=== PATIENT | female | born 1965 | race Caucasian/White ===

== ENCOUNTER 2016-02-28 18:07 | Inpatient (IN) | payer MEDICARE, MEDICAID ==
[~2016-02-28] VITALS: Ht 154.9 cm; Wt 102.0 kg
[~2016-02-28 18:07] MED LIST: ACCUCHECKS; AMBIEN 10MG10 MG PO; ANAFRANIL 25MG25 MG PO; ASPIRIN 81M81 MG/TA2 PO; ASPIRIN E.C. 8181 MG PO; ATENOLOL50 MG PO; ATIVAN 0.50.5 MG/TAB PO; ATIVAN 1MG T1 MG/TAB PO; BUSPAR10 MG PO; CARDURA 2MG2 MG PO; CEFTIN 250250 MG/TAB PO; CEFTIN500 MG PO; CIPRO500 MG PO; DILAUDID 2MG TAB2 MG PO; EFFEXOR 3737.5 MG/TA PO; EFFEXOR 75M75 MG/TAB PO; EFFEXOR-XR150 MG PO; FLAGYL500 MG PO; FLEXERIL 1010 MG/TAB PO; GABAPENTIN300 M1 PO; HCTZ 25MG25 MG PO; HUMALOG100 U/ML SC; IMDUR 30MG30 MG/TAB PO; INDERAL 20MG20 MG PO; ISOCHRON40 MG PO; ISORDIL TITRADO30 MG PO; K-DUR20 MEQ PO; KEPPRA 500MG500 MG PO; KEPPRA1000 MG PO; KEPPRA750 MG PO; KLONOPIN PO; LANTUS100 U/ML; LANTUS100 U/ML SC; LASIX 20MG TABL20 MG PO; LATUDA40 MG PO; LEXAPRO 5MG5 MG PO; LEXAPRO20 MG PO; LIPITOR 40MG TA40 MG PO; LIPITOR20 MG PO; LISINOPRIL20 MG PO; LOPRESSOR 550 MG/TAB PO; LYRICA 75MG CAP75 MG PO; MACROBID 1100 MG/CAP PO; MAG-OX 400400 MG/TAB PO; MIDRIN 325 MG-11 CAP PO; MOBIC15 MG PO; NEURONTIN400 MG/CAP PO; NORCO 325 MG-51 TAB PO; NOVLOG SC; NOVOLIN L100 U/ML SC; NOVOLOG 100U100 U/M1 SQ; NOVOLOG PUMP; PHENERGAN 25 TA25 MG PO; PHENERGAN25 M1 PO; PHENERGAN25 MG RC; PLAVIX 75MG TAB75 MG PO; PREDNISONE20 MG PO; PRIL40 PO; PRILOSEC 20MG20 MG PO; PROTONIX 40MG T40 MG PO; PYRIDIUM200 M1 PO; REGLAN 10MG10 MG/TAB PO; REMERON SOLTAB15 MG PO; REMERON30 MG PO; RISPERDAL 0.5M0.5 MG PO; SYNTHROID0.125 MG/T PO; TEGRETOL-XR400 MG PO; TOPAMAX 100MG100 M1 PO; TOPAMAX200 MG PO; TRAMADOL50 MG PO; TYLENOL 325MG325 MG PO; TYLENOL 500MG500 MG PO; ULTRAM 50MG TAB50 MG PO; ZANTAC; ZOCOR 20MG20 MG PO; ZOCOR 80MG80 MG PO; ZOFRAN 4MG T4 MG/TAB PO; ZOFRAN ODT4 MG PO; ZOFRAN8 MG PO; ZYRTEC 10MG; ZYRTEC 10MG10 MG PO
[2016-02-28 19:38] LABS: BASO % 0.3 % (0.0-2.0); EOS # 0.1 (0.0-0.7); EOS % 1.1 % (0-4.0); GRAN # 9.6 (1.4-6.5); GRAN % 75.3 % (42.2-75.2); LYMPH # 2.3 (1.2-3.4); LYMPH % 18.3 % (20.0-51.0); MEAN CELL VOLUME 89 fl (80.0-100.0); MEAN CORPUSCULAR HGB CONC 34 g/dl (33.0-37.0); MEAN PLATELET VOLUME 9.6 fl (7.4-10.4); MONO # 0.5 (0.1-0.6); MONO % 4.2 % (1.7-9.3); PLATELET COUNT 159 K/mm3 (130-400); RED BLOOD COUNT 3.73 M/mm3 (4.10-5.30); REDCELL DISTRIBUTION WIDTH-CV 14.3 % (11.5-14.5); WHITE BLOOD COUNT 12.8 K/mm3 (4.8-10.8)
[2016-02-28 19:42] LABS: HEMATOCRIT 33.2 % (37.0-47.0); HEMOGLOBIN 11.3 g/dl (12.5-16.0); MEAN CORPUSCULAR HEMOGLOBIN 30 pg (27.0-31.0)
[2016-02-28 19:53] LABS: ADJUSTED CALCIUM 9.3 mg/dL (8.4-10.2); ALBUMIN 4.1 gm/dL (3.5-5.0); BILIRUBIN,TOTAL 0.6 mg/dL (0.0-1.0); CALCIUM 9.4 mg/dL (8.4-10.2); CREATININE, serum 0.66 mg/dL (0.52-1.25); POTASSIUM 3.9 mmol/L (3.4-5.0); TOTAL PROTEIN 6.9 gm/dL (6.4-8.2)
[2016-02-28 20:17] LABS: ERYTHROCYTE SEDIMENTATION RATE 38 mm/hr (0-20)
[2016-02-28 20:44] LABS: PH 6 (5-8); URINE APPEARANCE Hazy; URINE BACTERIA Rare /hpf; URINE BILIRUBIN Negative (NEGATIVE); URINE BLOOD 1+ (NEGATIVE); URINE COLOR Yellow; URINE GLUCOSE 3+ (NEGATIVE); URINE KETONE Negative (NEGATIVE); URINE UROBILINOGEN Negative (NEGATIVE); URINE WBC None Seen /hpf
[2016-02-28] MEDS ORDERED: KEPPRA1000 MG PO (21:45)
[2016-02-28] MEDS ORDERED: BENADRYL25 M2 PO (21:48)
[2016-02-28] MEDS ORDERED: LAMICTAL 100MG100 MG PO (21:49)
[2016-02-28] MEDS ORDERED: CYMBALTA 60MG60 MG PO (21:49)
[2016-02-28] MEDS ORDERED: CARDURA 1MG1 MG PO (21:50)
[2016-02-28 22:01] VITALS: BP 123/66; PULSE 100; TEMP 98.9
[2016-02-29] VITALS (578 sets, daily range): BP systolic 108–142; BP diastolic 59–84; PULSE 84–102; TEMP 96.9–99; O2SAT 80–99
[2016-02-29 02:12] LABS: MAGNESIUM 1.6 mg/dL (1.6-2.3)
[2016-02-29 02:18] LABS: INR 1.1 (0.8-3.0); PROTHROMBIN TIME 11.8 SECONDS (9.7-12.8)
[2016-02-29 02:21] LABS: PARTIAL THROMBOPLASTIN TIME 32.7 SECONDS (26.0-37.0)
[2016-02-29 02:25] LABS: B-TYPE NATRIURETIC PEPTIDE 28 pg/mL (0-125)
[2016-02-29 02:30] LABS: TROPONIN-I < 0.012 ng/mL (0.000-0.034)
[2016-02-29 02:38] LABS: PH 5 (5-8); SQUAMOUS EPITHELIAL None Seen /hpf; URINE APPEARANCE Clear; URINE BACTERIA None Seen /hpf; URINE BILIRUBIN Negative (NEGATIVE); URINE BLOOD Negative (NEGATIVE); URINE COLOR Yellow; URINE GLUCOSE 3+ (NEGATIVE); URINE KETONE Negative (NEGATIVE); URINE RBC 0-2 /hpf; URINE UROBILINOGEN Negative (NEGATIVE); URINE WBC 0-2 /hpf
[2016-03-01 03:58] VITALS: BP 124/57; PULSE 99; TEMP 98.6
[2016-03-01 08:39] VITALS: BP 111/59; PULSE 90; TEMP 99
[2016-03-01 13:07] VITALS: BP 114/57; PULSE 80; TEMP 97.4
[2016-03-01 17:01] VITALS: BP 151/72; PULSE 90; TEMP 97.4
[2016-03-01 19:20] VITALS: BP 141/72; PULSE 95; TEMP 98.6
[2016-03-01 22:58] VITALS: BP 103/52; PULSE 93; TEMP 99
[2016-03-02 04:10] VITALS: BP 133/61; PULSE 92; TEMP 98.8
[2016-03-02 07:46] VITALS: BP 147/68; PULSE 93; TEMP 98.1
[2016-03-02 11:02] VITALS: BP 115/67; PULSE 83; TEMP 98.8
[2016-03-02 15:16] VITALS: BP 141/63; PULSE 87; TEMP 98
[2016-03-02 19:24] VITALS: BP 130/62; PULSE 98; TEMP 98.5
[2016-03-02 22:50] VITALS: BP 124/61; PULSE 101; TEMP 98.1
[2016-03-03] VITALS (8 sets, daily range): BP systolic 110–142; BP diastolic 56–67; PULSE 91–110; TEMP 97.7–98.7
[2016-03-03 04:40] LABS: PH 8 (5-8); SQUAMOUS EPITHELIAL None Seen /hpf; URINE APPEARANCE Hazy; URINE BACTERIA None Seen /hpf; URINE BILIRUBIN Negative (NEGATIVE); URINE BLOOD 1+ (NEGATIVE); URINE COLOR Yellow; URINE GLUCOSE 1+ (NEGATIVE); URINE KETONE 1+ (NEGATIVE); URINE UROBILINOGEN Negative (NEGATIVE)
[2016-03-03 12:01] LABS: BASO % 0.3 % (0.0-2.0); EOS # 0.1 (0.0-0.7); EOS % 0.6 % (0-4.0); GRAN # 10.8 (1.4-6.5); GRAN % 84.5 % (42.2-75.2); LYMPH # 1.2 (1.2-3.4); LYMPH % 9.4 % (20.0-51.0); MEAN CELL VOLUME 90 fl (80.0-100.0); MEAN CORPUSCULAR HGB CONC 33 g/dl (33.0-37.0); MEAN PLATELET VOLUME 9.4 fl (7.4-10.4); MONO # 0.6 (0.1-0.6); MONO % 4.4 % (1.7-9.3); PLATELET COUNT 154 K/mm3 (130-400); RED BLOOD COUNT 3.44 M/mm3 (4.10-5.30); REDCELL DISTRIBUTION WIDTH-CV 14.5 % (11.5-14.5); WHITE BLOOD COUNT 12.8 K/mm3 (4.8-10.8)
[2016-03-03 12:11] LABS: HEMATOCRIT 30.9 % (37.0-47.0); HEMOGLOBIN 10.3 g/dl (12.5-16.0); MEAN CORPUSCULAR HEMOGLOBIN 30 pg (27.0-31.0)
[2016-03-03 12:29] LABS: CALCIUM 9.2 mg/dL (8.4-10.2); CREATININE, serum 0.56 mg/dL (0.52-1.25); POTASSIUM 4.1 mmol/L (3.4-5.0)
[2016-03-04 00:17] VITALS: BP 128/64; PULSE 91; TEMP 98.2
[2016-03-04 03:56] VITALS: BP 137/64; PULSE 88; TEMP 98
[2016-03-04 08:07] VITALS: BP 147/67; PULSE 89; TEMP 98.2
[2016-03-04 11:28] VITALS: BP 106/71; PULSE 58; TEMP 97.6
[2016-03-04] MEDS ORDERED: LOVENOX 4040 MG/0.4 SQ (15:29)
[2016-03-04] MEDS ORDERED: SENOKOT S 50 MG1 TAB PO (15:30)
[2016-03-04 15:37] VITALS: BP 106/71; PULSE 58; TEMP 97.6
[2016-03-04] MEDS ORDERED: CEFTIN500 MG PO (17:05)
== END 2016-03-04 16:59 | DRG 73 ==
LOC: COL.ER 18:07 → MEDICAL 20:41 → ICU 02-29 03:05 → MEDICAL 02-29 11:25 → ICU 02-29 11:25 → MEDICAL 02-29 14:44
PROVIDERS: Emergency Medicine; Family Medicine; Nurse Practitioner Family
DX: E10.43 Type 1 diabetes mellitus with diabetic autonomic (poly)neuropathy (principal); J96.01 Acute respiratory failure with hypoxia; Z68.41 Body mass index [BMI] 40.0-44.9, adult; K31.84 Gastroparesis; Z79.4 Long term (current) use of insulin; Z96.41 Presence of insulin pump (external) (internal); E66.01 Morbid (severe) obesity due to excess calories; I10 Essential (primary) hypertension; K70.0 Alcoholic fatty liver; R33.9 Retention of urine, unspecified
CPT/HCPCS: 99223-AI; 99232-AI; 99239; A4315; A9284; A9502; G0378; J1170; J1650; J1815; J2060; J2270; J2310; J2405; J2550; J2765; J2785; J7030; Q9967

== ENCOUNTER 2016-03-07 23:49 | Emergency (ER) | payer MEDICARE, MEDICAID ==
[~2016-03-07] VITALS: Ht 154.9 cm; Wt 97.3 kg
[~2016-03-07 23:49] MED LIST changes: +BENADRYL25 M2 PO; +CARDURA 1MG1 MG PO; +CYMBALTA 60MG60 MG PO; +LAMICTAL 100MG100 MG PO; +LOVENOX 4040 MG/0.4 SQ; +SENOKOT S 50 MG1 TAB PO
[2016-03-07 23:51] VITALS: TEMP 99.1
[2016-03-08] MEDS ORDERED: LEVEMIR SQ (00:03)
[2016-03-08] MEDS ORDERED: NOVLOG SQ (00:03)
[2016-03-08 01:10] LABS: PH 6 (5-8); SQUAMOUS EPITHELIAL 0-2 /hpf; URINE APPEARANCE Cloudy; URINE BACTERIA Rare /hpf; URINE BILIRUBIN Negative (NEGATIVE); URINE BLOOD 3+ (NEGATIVE); URINE COLOR Yellow; URINE GLUCOSE 1+ (NEGATIVE); URINE KETONE Negative (NEGATIVE); URINE RBC >50 /hpf; URINE UROBILINOGEN Negative (NEGATIVE); URINE WBC 20-50 /hpf
[2016-03-08] MEDS ORDERED: LEVAQUIN 750MG750 M1 PO (01:54)
[2016-03-08] MEDS ORDERED: PYRIDIUM200 M1 PO (01:54)
[2016-03-08 02:13] VITALS: BP 151/71; PULSE 84
== END 2016-03-08 02:13 | disposition home or self-care (01) ==
LOC: COL.ER 23:49
PROVIDERS: Emergency Medicine
DX: R10.32 Left lower quadrant pain (principal)

== ENCOUNTER 2016-03-13 19:07 | Emergency (ER) | payer MEDICARE, MEDICAID ==
[~2016-03-13] VITALS: Ht 154.9 cm; Wt 100.9 kg
[~2016-03-13 19:07] MED LIST changes: +LEVAQUIN 750MG750 M1 PO; +LEVEMIR SQ; +NOVLOG SQ
[2016-03-13 20:18] LABS: BASO # 0.1 (0.0-0.2); BASO % 0.4 % (0.0-2.0); EOS # 0.1 (0.0-0.7); GRAN # 9.9 (1.4-6.5); GRAN % 72.4 % (42.2-75.2); LYMPH # 2.8 (1.2-3.4); LYMPH % 20.2 % (20.0-51.0); MEAN CELL VOLUME 90 fl (80.0-100.0); MEAN CORPUSCULAR HGB CONC 33 g/dl (33.0-37.0); MEAN PLATELET VOLUME 9.3 fl (7.4-10.4); MONO # 0.7 (0.1-0.6); PLATELET COUNT 229 K/mm3 (130-400); RED BLOOD COUNT 3.63 M/mm3 (4.10-5.30); REDCELL DISTRIBUTION WIDTH-CV 14.2 % (11.5-14.5); WHITE BLOOD COUNT 13.6 K/mm3 (4.8-10.8)
[2016-03-13 20:22] LABS: HEMATOCRIT 32.7 % (37.0-47.0); HEMOGLOBIN 10.9 g/dl (12.5-16.0); MEAN CORPUSCULAR HEMOGLOBIN 30 pg (27.0-31.0)
[2016-03-13 20:28] LABS: ADJUSTED CALCIUM 9.5 mg/dL (8.4-10.2); ALANINE AMINOTRANSFERASE 37 U/L (9-52); ALBUMIN 4.1 gm/dL (3.5-5.0); ALKALINE PHOSPHATASE 141 U/L (50-136); ANION GAP 13 mmol/L (7-16); BILIRUBIN,TOTAL 0.5 mg/dL (0.0-1.0); BLOOD UREA NITROGEN 13 mg/dL (7-17); CALCIUM 9.6 mg/dL (8.4-10.2); CARBON DIOXIDE 26 mmol/L (22-30); CHLORIDE 101 mmol/L (98-107); CREATININE, serum 0.73 mg/dL (0.52-1.25); GLUCOSE 147 mg/dL (74-106); POTASSIUM 3.9 mmol/L (3.4-5.0); SODIUM 140 mmol/L (137-145)
[2016-03-13 20:44] LABS: PROLACTIN 20.2 ng/mL (3.0-18.6)
[2016-03-13 20:45] VITALS: TEMP 98.8
[2016-03-13 20:51] LABS: PH 8 (5-8); SQUAMOUS EPITHELIAL None Seen /hpf; URINE APPEARANCE Clear; URINE BACTERIA None Seen /hpf; URINE BILIRUBIN Negative (NEGATIVE); URINE BLOOD 3+ (NEGATIVE); URINE COLOR Yellow; URINE GLUCOSE Negative (NEGATIVE); URINE KETONE Negative (NEGATIVE); URINE RBC >50 /hpf; URINE UROBILINOGEN Negative (NEGATIVE)
[2016-03-13] MEDS ORDERED: NORCO 325 MG-51 TAB PO (21:07)
[2016-03-13 21:28] VITALS: BP 110/66; PULSE 80
[2016-03-13] MEDS ORDERED: SENOKOT8.6 MG PO (21:41)
[2016-03-13] MEDS ORDERED: TYLENOL 500MG500 MG PO (21:42)
== END 2016-03-13 21:30 | disposition home or self-care (01) ==
LOC: COL.ER 19:07
PROVIDERS: Family Medicine
DX: R55 Syncope and collapse (principal); R51 Headache; M54.2 Cervicalgia; M25.512 Pain in left shoulder; M25.552 Pain in left hip; W19.XXXA Unspecified fall, initial encounter; Y92.098 Other place in other non-institutional residence as the place of occurrence of the external cause; N39.0 Urinary tract infection, site not specified; E10.9 Type 1 diabetes mellitus without complications; Z79.2 Long term (current) use of antibiotics; I51.7 Cardiomegaly
CPT/HCPCS: J1170; J2550; J7030

== ENCOUNTER → 2016-03-18 | Outpatient (REF) ==
[~2016-03-18] MED LIST changes: +BUSPAR5 MG PO; +CEPHALEXIN250 M1 PO; +CLEOCIN HCL300 MG PO; +DIFLUCAN 100MG100 MG PO; +K-DUR 10 MEQ T10 MEQ PO; +LANTUS SOLOS100 U/ML SQ; +MELATONIN5 M1 SL; +MINIPRESS 1M1 MG/CAP PO; +OMEGA-3 FISH1000 MG PO; +PYRIDIUM 100MG100 MG PO; +SENNA-LAX8.6 MG PO; +SENOKOT8.6 MG PO; +SYNTHROID0.112 MG/T PO; +TRICOR 48MG48 MG PO; +VASCEPA1 GM PO; +VISTARIL 2525 MG/CAP PO
== END ==
LOC: ZCOL.LAB 14:35
DX: Z01.89 Encounter for other specified special examinations (principal)

== ENCOUNTER 2016-03-19 21:50 | Emergency (ER) | payer MEDICARE, MEDICAID ==
[~2016-03-19] VITALS: Ht 154.9 cm; Wt 100.9 kg
[~2016-03-19 21:50] MED LIST changes: -BUSPAR5 MG PO; -CEPHALEXIN250 M1 PO; -CLEOCIN HCL300 MG PO; -DIFLUCAN 100MG100 MG PO; -K-DUR 10 MEQ T10 MEQ PO; -LANTUS SOLOS100 U/ML SQ; -MELATONIN5 M1 SL; -MINIPRESS 1M1 MG/CAP PO; -OMEGA-3 FISH1000 MG PO; -PYRIDIUM 100MG100 MG PO; -SENNA-LAX8.6 MG PO; -SYNTHROID0.112 MG/T PO; -TRICOR 48MG48 MG PO; -VASCEPA1 GM PO; -VISTARIL 2525 MG/CAP PO
[2016-03-19 21:56] VITALS: TEMP 99.2
[2016-03-19 22:45] LABS: PH 8 (5-8); URINE APPEARANCE Clear; URINE BACTERIA None Seen /hpf; URINE BILIRUBIN Negative (NEGATIVE); URINE BLOOD Negative (NEGATIVE); URINE COLOR Yellow; URINE GLUCOSE Negative (NEGATIVE); URINE KETONE Negative (NEGATIVE); URINE RBC 0-2 /hpf; URINE UROBILINOGEN Negative (NEGATIVE)
[2016-03-19 23:12] LABS: BASO % 0.2 % (0.0-2.0); EOS # 0.1 (0.0-0.7); EOS % 1.2 % (0-4.0); GRAN # 8.5 (1.4-6.5); GRAN % 70.4 % (42.2-75.2); HEMATOCRIT 32.9 % (37.0-47.0); HEMOGLOBIN 10.9 g/dl (12.5-16.0); LYMPH # 2.9 (1.2-3.4); LYMPH % 23.6 % (20.0-51.0); MEAN CELL VOLUME 89 fl (80.0-100.0); MEAN CORPUSCULAR HEMOGLOBIN 30 pg (27.0-31.0); MEAN CORPUSCULAR HGB CONC 33 g/dl (33.0-37.0); MEAN PLATELET VOLUME 9.3 fl (7.4-10.4); MONO # 0.5 (0.1-0.6); PLATELET COUNT 217 K/mm3 (130-400); RED BLOOD COUNT 3.68 M/mm3 (4.10-5.30); REDCELL DISTRIBUTION WIDTH-CV 13.9 % (11.5-14.5); WHITE BLOOD COUNT 12.1 K/mm3 (4.8-10.8)
[2016-03-19 23:22] LABS: ADJUSTED CALCIUM 9.7 mg/dL (8.4-10.2); ALBUMIN 4.2 gm/dL (3.5-5.0); BILIRUBIN,TOTAL 0.6 mg/dL (0.0-1.0); C-REACTIVE PROTEIN 1.6 mg/dL (0.0-0.9); CALCIUM 9.9 mg/dL (8.4-10.2); CREATININE, serum 0.65 mg/dL (0.52-1.25); POTASSIUM 3.8 mmol/L (3.4-5.0); TOTAL PROTEIN 7.5 gm/dL (6.4-8.2)
[2016-03-20] MEDS ORDERED: SYNTHROID0.125 MG/T PO (00:10)
[2016-03-20] MEDS ORDERED: LAMICTAL 100MG100 MG PO (00:11)
[2016-03-20] MEDS ORDERED: PROTONIX 40MG T40 MG PO (00:11)
[2016-03-20] MEDS ORDERED: LOPRESSOR 550 MG/TAB PO (00:12)
[2016-03-20] MEDS ORDERED: REGLAN 10MG10 MG/TAB PO (00:13)
[2016-03-20] MEDS ORDERED: ATIVAN 0.50.5 MG/TAB PO (00:14)
[2016-03-20] MEDS ORDERED: LASIX 20MG TABL20 MG PO (00:14)
[2016-03-20] MEDS ORDERED: ISORDIL TITRADO30 MG PO (00:17)
[2016-03-20] MEDS ORDERED: K-DUR 10 MEQ T10 MEQ PO (00:17)
[2016-03-20] MEDS ORDERED: LIPITOR 40MG TA40 MG PO (00:18)
[2016-03-20] MEDS ORDERED: DIFLUCAN 100MG100 MG PO (00:19)
[2016-03-20 00:45] VITALS: BP 128/69; PULSE 81
== END 2016-03-20 00:47 | disposition home or self-care (01) ==
LOC: COL.ER 21:50
PROVIDERS: Emergency Medicine
DX: R10.31 Right lower quadrant pain (principal); R10.32 Left lower quadrant pain; R33.9 Retention of urine, unspecified; E11.9 Type 2 diabetes mellitus without complications; I10 Essential (primary) hypertension
CPT/HCPCS: J1170; J2405

== ENCOUNTER → 2016-03-20 | Outpatient (REF) ==
[~2016-03-20] MED LIST changes: +BUSPAR5 MG PO; +CEPHALEXIN250 M1 PO; +CLEOCIN HCL300 MG PO; +DIFLUCAN 100MG100 MG PO; +K-DUR 10 MEQ T10 MEQ PO; +LANTUS SOLOS100 U/ML SQ; +MELATONIN5 M1 SL; +MINIPRESS 1M1 MG/CAP PO; +OMEGA-3 FISH1000 MG PO; +PYRIDIUM 100MG100 MG PO; +SENNA-LAX8.6 MG PO; +SYNTHROID0.112 MG/T PO; +TRICOR 48MG48 MG PO; +VASCEPA1 GM PO; +VISTARIL 2525 MG/CAP PO
== END ==
LOC: ZCOL.LAB 13:19
DX: Z01.89 Encounter for other specified special examinations (principal)

== ENCOUNTER 2016-03-21 20:05 | Emergency (ER) | payer MEDICARE, MEDICAID ==
[~2016-03-21] VITALS: Ht 154.9 cm; Wt 100.9 kg
[~2016-03-21 20:05] MED LIST changes: -BUSPAR5 MG PO; -CEPHALEXIN250 M1 PO; -CLEOCIN HCL300 MG PO; -LANTUS SOLOS100 U/ML SQ; -MELATONIN5 M1 SL; -MINIPRESS 1M1 MG/CAP PO; -OMEGA-3 FISH1000 MG PO; -PYRIDIUM 100MG100 MG PO; -SENNA-LAX8.6 MG PO; -SYNTHROID0.112 MG/T PO; -TRICOR 48MG48 MG PO; -VASCEPA1 GM PO; -VISTARIL 2525 MG/CAP PO
[2016-03-21 20:12] VITALS: TEMP 99
[2016-03-21 21:00] VITALS: BP 119/80; PULSE 80
== END 2016-03-21 21:02 | disposition home or self-care (01) ==
LOC: COL.ER 20:05
DX: M79.632 Pain in left forearm (principal); W01.198A Fall on same level from slipping, tripping and stumbling with subsequent striking against other object, initial encounter; Y92.009 Unspecified place in unspecified non-institutional (private) residence as the place of occurrence of the external cause; E10.9 Type 1 diabetes mellitus without complications; Z79.4 Long term (current) use of insulin
CPT/HCPCS: J1170; J2550

== ENCOUNTER 2016-03-24 12:09 | Emergency (ER) | payer MEDICARE, MEDICAID ==
[~2016-03-24] VITALS: Ht 154.9 cm; Wt 101.8 kg
[2016-03-24 12:12] VITALS: TEMP 98.8
[2016-03-24 13:20] LABS: BASO % 0.3 % (0.0-2.0); EOS # 0.1 (0.0-0.7); EOS % 1.1 % (0-4.0); GRAN # 6.4 (1.4-6.5); GRAN % 72.8 % (42.2-75.2); HEMATOCRIT 33.5 % (37.0-47.0); HEMOGLOBIN 11.1 g/dl (12.5-16.0); LYMPH # 1.9 (1.2-3.4); LYMPH % 21.3 % (20.0-51.0); MEAN CELL VOLUME 89 fl (80.0-100.0); MEAN CORPUSCULAR HEMOGLOBIN 29 pg (27.0-31.0); MEAN CORPUSCULAR HGB CONC 33 g/dl (33.0-37.0); MEAN PLATELET VOLUME 9.8 fl (7.4-10.4); MONO # 0.4 (0.1-0.6); PLATELET COUNT 177 K/mm3 (130-400); RED BLOOD COUNT 3.78 M/mm3 (4.10-5.30); REDCELL DISTRIBUTION WIDTH-CV 13.9 % (11.5-14.5); WHITE BLOOD COUNT 8.8 K/mm3 (4.8-10.8)
[2016-03-24 13:32] LABS: ADJUSTED CALCIUM 9.4 mg/dL (8.4-10.2); ALANINE AMINOTRANSFERASE 36 U/L (9-52); ALBUMIN 4.2 gm/dL (3.5-5.0); ALKALINE PHOSPHATASE 144 U/L (50-136); ANION GAP 13 mmol/L (7-16); BILIRUBIN,TOTAL 0.5 mg/dL (0.0-1.0); BLOOD UREA NITROGEN 12 mg/dL (7-17); C-REACTIVE PROTEIN 2.1 mg/dL (0.0-0.9); CALCIUM 9.6 mg/dL (8.4-10.2); CARBON DIOXIDE 23 mmol/L (22-30); CHLORIDE 106 mmol/L (98-107); CREATININE, serum 0.65 mg/dL (0.52-1.25); GLUCOSE 153 mg/dL (74-106); LIPASE 48 U/L (23-300); POTASSIUM 3.9 mmol/L (3.4-5.0); SODIUM 142 mmol/L (137-145); TOTAL PROTEIN 7.2 gm/dL (6.4-8.2)
[2016-03-24 13:47] LABS: TROPONIN-I < 0.012 ng/mL (0.000-0.034)
[2016-03-24 16:07] VITALS: BP 145/70; PULSE 83
== END 2016-03-24 16:10 | disposition home or self-care (01) ==
LOC: COL.ER 12:09
PROVIDERS: Emergency Medicine
DX: R07.9 Chest pain, unspecified (principal); E11.9 Type 2 diabetes mellitus without complications; I10 Essential (primary) hypertension
CPT/HCPCS: J2405

== ENCOUNTER → 2016-03-30 | Outpatient (REF) ==
[~2016-03-30] MED LIST changes: +BUSPAR5 MG PO; +CEPHALEXIN250 M1 PO; +CLEOCIN HCL300 MG PO; +LANTUS SOLOS100 U/ML SQ; +MELATONIN5 M1 SL; +MINIPRESS 1M1 MG/CAP PO; +OMEGA-3 FISH1000 MG PO; +PYRIDIUM 100MG100 MG PO; +SENNA-LAX8.6 MG PO; +SYNTHROID0.112 MG/T PO; +TRICOR 48MG48 MG PO; +VASCEPA1 GM PO; +VISTARIL 2525 MG/CAP PO
[2016-03-30 10:55] LABS: PH 6 (5-8); URINE APPEARANCE Hazy; URINE BACTERIA None Seen /hpf; URINE BILIRUBIN Negative (NEGATIVE); URINE BLOOD Negative (NEGATIVE); URINE COLOR Straw; URINE GLUCOSE Negative (NEGATIVE); URINE KETONE Negative (NEGATIVE); URINE RBC None Seen /hpf; URINE UROBILINOGEN Negative (NEGATIVE); URINE WBC 0-2 /hpf
== END ==
LOC: ZCOL.LAB 10:34
PROVIDERS: Family Medicine
DX: Z01.89 Encounter for other specified special examinations (principal)

== ENCOUNTER → 2016-03-31 | Outpatient (REF) ==
[2016-03-31 12:01] LABS: BASO % 0.3 % (0.0-2.0); EOS # 0.2 (0.0-0.7); EOS % 1.4 % (0-4.0); GRAN # 8.7 (1.4-6.5); GRAN % 75.7 % (42.2-75.2); LYMPH % 17.5 % (20.0-51.0); MEAN CELL VOLUME 90 fl (80.0-100.0); MEAN CORPUSCULAR HEMOGLOBIN 30 pg (27.0-31.0); MEAN CORPUSCULAR HGB CONC 33 g/dl (33.0-37.0); MEAN PLATELET VOLUME 10.6 fl (7.4-10.4); MONO # 0.5 (0.1-0.6); PLATELET COUNT 164 K/mm3 (130-400); RED BLOOD COUNT 4.04 M/mm3 (4.10-5.30); REDCELL DISTRIBUTION WIDTH-CV 14.3 % (11.5-14.5); WHITE BLOOD COUNT 11.5 K/mm3 (4.8-10.8)
[2016-03-31 12:04] LABS: HEMATOCRIT 36.3 % (37.0-47.0)
== END ==
LOC: ZCOL.LAB 11:54
PROVIDERS: Urology
DX: Z01.89 Encounter for other specified special examinations (principal)

== ENCOUNTER 2016-04-03 19:40 | Emergency (ER) | payer MEDICARE, MEDICAID ==
[~2016-04-03] VITALS: Ht 154.9 cm; Wt 101.8 kg
[~2016-04-03 19:40] MED LIST changes: -BUSPAR5 MG PO; -CEPHALEXIN250 M1 PO; -CLEOCIN HCL300 MG PO; -LANTUS SOLOS100 U/ML SQ; -MELATONIN5 M1 SL; -MINIPRESS 1M1 MG/CAP PO; -OMEGA-3 FISH1000 MG PO; -PYRIDIUM 100MG100 MG PO; -SENNA-LAX8.6 MG PO; -SYNTHROID0.112 MG/T PO; -TRICOR 48MG48 MG PO; -VASCEPA1 GM PO; -VISTARIL 2525 MG/CAP PO
[2016-04-03 19:49] VITALS: TEMP 98.8
[2016-04-03 20:33] LABS: BASO % 0.3 % (0.0-2.0); EOS # 0.1 (0.0-0.7); EOS % 0.9 % (0-4.0); GRAN % 68.5 % (42.2-75.2); HEMOGLOBIN 12.2 g/dl (12.5-16.0); LYMPH % 25.7 % (20.0-51.0); MEAN CELL VOLUME 87 fl (80.0-100.0); MEAN CORPUSCULAR HEMOGLOBIN 29 pg (27.0-31.0); MEAN CORPUSCULAR HGB CONC 34 g/dl (33.0-37.0); MEAN PLATELET VOLUME 9.4 fl (7.4-10.4); MONO # 0.5 (0.1-0.6); MONO % 4.2 % (1.7-9.3); PLATELET COUNT 183 K/mm3 (130-400); RED BLOOD COUNT 4.17 M/mm3 (4.10-5.30); REDCELL DISTRIBUTION WIDTH-CV 13.9 % (11.5-14.5); WHITE BLOOD COUNT 11.7 K/mm3 (4.8-10.8)
[2016-04-03 20:35] LABS: HEMATOCRIT 36.3 % (37.0-47.0)
[2016-04-03 20:37] LABS: CREATININE, serum 0.64 mg/dL (0.52-1.25); POTASSIUM 3.6 mmol/L (3.4-5.0)
[2016-04-03 22:14] VITALS: BP 134/74; PULSE 82
== END 2016-04-03 22:15 | disposition home or self-care (01) ==
LOC: COL.ER 19:40
PROVIDERS: Emergency Medicine
DX: S80.01XA Contusion of right knee, initial encounter (principal); W01.198A Fall on same level from slipping, tripping and stumbling with subsequent striking against other object, initial encounter; Y92.129 Unspecified place in nursing home as the place of occurrence of the external cause; M25.461 Effusion, right knee; G89.29 Other chronic pain; E11.43 Type 2 diabetes mellitus with diabetic autonomic (poly)neuropathy; K31.84 Gastroparesis; Z79.4 Long term (current) use of insulin
CPT/HCPCS: J1170; J3010

== ENCOUNTER 2016-04-05 18:05 | Emergency (ER) | payer MEDICARE, MEDICAID ==
[~2016-04-05] VITALS: Ht 154.9 cm; Wt 101.8 kg
[2016-04-05 18:07] VITALS: TEMP 98.9
[2016-04-05 19:52] VITALS: BP 136/88; PULSE 89
== END 2016-04-05 19:53 | disposition home or self-care (01) ==
LOC: COL.ER 18:05
DX: M25.561 Pain in right knee (principal); G89.29 Other chronic pain

== ENCOUNTER 2016-04-10 08:02 | Emergency (ER) | payer MEDICARE, MEDICAID ==
[~2016-04-10] VITALS: Ht 154.9 cm; Wt 101.8 kg
[2016-04-10 08:05] VITALS: TEMP 98.2
[2016-04-10 09:12] LABS: INR 1.1 (0.8-3.0); PROTHROMBIN TIME 12.6 SECONDS (9.7-12.8)
[2016-04-10 09:13] LABS: BASO % 0.3 % (0.0-2.0); EOS # 0.1 (0.0-0.7); GRAN # 6.2 (1.4-6.5); GRAN % 68.6 % (42.2-75.2); HEMOGLOBIN 12.1 g/dl (12.5-16.0); LYMPH # 2.3 (1.2-3.4); LYMPH % 25.4 % (20.0-51.0); MEAN CELL VOLUME 88 fl (80.0-100.0); MEAN CORPUSCULAR HEMOGLOBIN 29 pg (27.0-31.0); MEAN CORPUSCULAR HGB CONC 33 g/dl (33.0-37.0); MEAN PLATELET VOLUME 9.8 fl (7.4-10.4); MONO # 0.4 (0.1-0.6); MONO % 4.3 % (1.7-9.3); PLATELET COUNT 191 K/mm3 (130-400); RED BLOOD COUNT 4.18 M/mm3 (4.10-5.30); REDCELL DISTRIBUTION WIDTH-CV 13.9 % (11.5-14.5)
[2016-04-10 09:14] LABS: HEMATOCRIT 36.9 % (37.0-47.0)
[2016-04-10 09:20] LABS: ADJUSTED CALCIUM 9.1 mg/dL (8.4-10.2); ALANINE AMINOTRANSFERASE 45 U/L (9-52); ALBUMIN 4.5 gm/dL (3.5-5.0); ALKALINE PHOSPHATASE 208 U/L (50-136); ANION GAP 16 mmol/L (7-16); BILIRUBIN,TOTAL 0.6 mg/dL (0.0-1.0); BLOOD UREA NITROGEN 12 mg/dL (7-17); CALCIUM 9.5 mg/dL (8.4-10.2); CARBON DIOXIDE 26 mmol/L (22-30); CHLORIDE 101 mmol/L (98-107); CREATININE, serum 0.63 mg/dL (0.52-1.25); GLUCOSE 213 mg/dL (74-106); POTASSIUM 3.7 mmol/L (3.4-5.0); SODIUM 143 mmol/L (137-145); TOTAL PROTEIN 7.8 gm/dL (6.4-8.2)
[2016-04-10 09:44] LABS: TROPONIN-I < 0.012 ng/mL (0.000-0.034)
[2016-04-10 11:24] LABS: AMPHETAMINE URINE NEGATIVE; BARBITURATES URINE POSITIVE; BENZODIAZEPINES URINE NEGATIVE; BUPRENORPHINE URINE NEGATIVE; METHADONE URINE NEGATIVE; OPIATES URINE NEGATIVE; OXYCODONE URINE NEGATIVE; PHENCYCLIDINE URINE NEGATIVE; PROPOXYPHENE URINE NEGATIVE; THC CANNABINOIDS URINE NEGATIVE
[2016-04-10 11:25] LABS: ACETAMINOPHEN < 10 ug/mL (10-30)
[2016-04-10 22:05] VITALS: BP 104/64; PULSE 78
== END 2016-04-10 22:00 | disposition short-term general hospital (02) ==
LOC: COL.ER 08:02
PROVIDERS: Nurse Practitioner
DX: F33.3 Major depressive disorder, recurrent, severe with psychotic symptoms (principal); R45.851 Suicidal ideations; R51 Headache; Z86.73 Personal history of transient ischemic attack (TIA), and cerebral infarction without residual deficits; G40.909 Epilepsy, unspecified, not intractable, without status epilepticus

== ENCOUNTER 2016-05-06 13:42 | Observation (INO) | payer MEDICARE, MEDICAID ==
[~2016-05-06] VITALS: Ht 154.9 cm; Wt 96.7 kg
[~2016-05-06 13:42] MED LIST changes: -BUSPAR5 MG PO; -CEPHALEXIN250 M1 PO; -CLEOCIN HCL300 MG PO; -LANTUS SOLOS100 U/ML SQ; -MELATONIN5 M1 SL; -MINIPRESS 1M1 MG/CAP PO; -OMEGA-3 FISH1000 MG PO; -PYRIDIUM 100MG100 MG PO; -SENNA-LAX8.6 MG PO; -SYNTHROID0.112 MG/T PO; -TRICOR 48MG48 MG PO; -VASCEPA1 GM PO; -VISTARIL 2525 MG/CAP PO
[2016-05-06 14:53] LABS: BASO % 0.4 % (0.0-2.0); EOS # 0.1 (0.0-0.7); GRAN # 7.2 (1.4-6.5); GRAN % 70.7 % (42.2-75.2); LYMPH # 2.4 (1.2-3.4); LYMPH % 23.2 % (20.0-51.0); MEAN CELL VOLUME 87 fl (80.0-100.0); MEAN CORPUSCULAR HGB CONC 33 g/dl (33.0-37.0); MEAN PLATELET VOLUME 9.8 fl (7.4-10.4); MONO # 0.4 (0.1-0.6); MONO % 4.1 % (1.7-9.3); PLATELET COUNT 188 K/mm3 (130-400); REDCELL DISTRIBUTION WIDTH-CV 14.3 % (11.5-14.5); WHITE BLOOD COUNT 10.1 K/mm3 (4.8-10.8)
[2016-05-06 14:54] LABS: HEMATOCRIT 34.9 % (37.0-47.0); HEMOGLOBIN 11.6 g/dl (12.5-16.0); MEAN CORPUSCULAR HEMOGLOBIN 29 pg (27.0-31.0)
[2016-05-06 14:55] LABS: INR 1.1 (0.8-3.0); PROTHROMBIN TIME 12.4 SECONDS (9.7-12.8)
[2016-05-06 15:16] LABS: ADJUSTED CALCIUM 9.3 mg/dL (8.4-10.2); ALBUMIN 4.6 gm/dL (3.5-5.0); BILIRUBIN,TOTAL 0.6 mg/dL (0.0-1.0); C-REACTIVE PROTEIN 2.3 mg/dL (0.0-0.9); CALCIUM 9.8 mg/dL (8.4-10.2); CREATININE, serum 0.61 mg/dL (0.52-1.25); POTASSIUM 3.9 mmol/L (3.4-5.0); TOTAL PROTEIN 8.3 gm/dL (6.4-8.2)
[2016-05-06 16:56] VITALS: BP 172/81; PULSE 87; TEMP 98.4
[2016-05-06] MEDS ORDERED: CARDURA 2MG2 MG PO (18:31)
[2016-05-06] MEDS ORDERED: VASCEPA1 GM PO (18:37)
[2016-05-06 21:34] VITALS: BP 130/71; PULSE 95; TEMP 97.7
[2016-05-07 00:37] VITALS: BP 118/64; PULSE 85; TEMP 98.1
[2016-05-07 04:38] VITALS: BP 124/71; PULSE 71; TEMP 98.2
[2016-05-07 07:11] LABS: CHOLESTEROL 162 mg/dL (120-200)
[2016-05-07 07:19] LABS: TRIGLYCERIDE 553 mg/dL
[2016-05-07 08:04] VITALS: BP 133/66; PULSE 73; TEMP 98.2
[2016-05-07 10:23] LABS: PH 6 (5-8); URINE APPEARANCE Clear; URINE BACTERIA Rare /hpf; URINE BILIRUBIN Negative (NEGATIVE); URINE BLOOD Negative (NEGATIVE); URINE COLOR Yellow; URINE GLUCOSE 1+ (NEGATIVE); URINE KETONE Negative (NEGATIVE); URINE RBC None Seen /hpf; URINE UROBILINOGEN Negative (NEGATIVE); URINE WBC 0-2 /hpf
[2016-05-07 11:22] VITALS: BP 131/75; PULSE 67; TEMP 98.3
[2016-05-07] MEDS ORDERED: MIDRIN 325 MG-11 CAP PO (11:55)
[2016-05-07] MEDS ORDERED: PLAVIX 75MG TAB75 MG PO (11:55)
[2016-05-07] MEDS ORDERED: SENNA-LAX8.6 MG PO (15:21)
[2016-05-07] MEDS ORDERED: ATIVAN 0.50.5 MG/TAB PO (15:22)
[2016-05-07 15:58] VITALS: BP 147/66; PULSE 67; TEMP 97.4
[2016-05-07 16:26] VITALS: BP 131/75; PULSE 67; TEMP 98.3
== END 2016-05-07 16:53 | disposition home or self-care (01) ==
LOC: COL.ER 13:42 → MEDICAL 15:25
PROVIDERS: Family Medicine; Physician Assistant
DX: R53.1 Weakness (principal); G43.709 Chronic migraine without aura, not intractable, without status migrainosus; E10.43 Type 1 diabetes mellitus with diabetic autonomic (poly)neuropathy; E10.42 Type 1 diabetes mellitus with diabetic polyneuropathy; K31.84 Gastroparesis; I10 Essential (primary) hypertension; E78.5 Hyperlipidemia, unspecified; G40.909 Epilepsy, unspecified, not intractable, without status epilepticus; E03.9 Hypothyroidism, unspecified; F32.9 Major depressive disorder, single episode, unspecified; F41.1 Generalized anxiety disorder; K21.9 Gastro-esophageal reflux disease without esophagitis; Z79.4 Long term (current) use of insulin; Z96.41 Presence of insulin pump (external) (internal); G47.33 Obstructive sleep apnea (adult) (pediatric); K76.0 Fatty (change of) liver, not elsewhere classified; Z79.899 Other long term (current) drug therapy; Z79.82 Long term (current) use of aspirin
CPT/HCPCS: A9284; G0378; G8978-GP; G8979-GP; G8987-GO; G8988-GO; G9168-GN; G9169-GN; J0595; J1650; J2550; J7030

== ENCOUNTER → 2016-05-06 | Outpatient (CLI) | payer MEDICARE, MEDICAID ==
[~2016-05-06] MED LIST changes: +BUSPAR5 MG PO; +CEPHALEXIN250 M1 PO; +CLEOCIN HCL300 MG PO; +LANTUS SOLOS100 U/ML SQ; +MELATONIN5 M1 SL; +MINIPRESS 1M1 MG/CAP PO; +OMEGA-3 FISH1000 MG PO; +PYRIDIUM 100MG100 MG PO; +SENNA-LAX8.6 MG PO; +SYNTHROID0.112 MG/T PO; +TRICOR 48MG48 MG PO; +VASCEPA1 GM PO; +VISTARIL 2525 MG/CAP PO
== END ==
LOC: ZCOL.LAB 16:12
DX: Z53.9 Procedure and treatment not carried out, unspecified reason (principal)

== ENCOUNTER 2016-05-26 13:42 | Emergency (ER) | payer MEDICARE, MEDICAID ==
[~2016-05-26] VITALS: Ht 154.9 cm; Wt 99.5 kg
[~2016-05-26 13:42] MED LIST changes: +SENNA-LAX8.6 MG PO; +VASCEPA1 GM PO
[2016-05-26 13:44] VITALS: TEMP 98.7
[2016-05-26 15:46] LABS: BASO % 0.4 % (0.0-2.0); EOS # 0.1 (0.0-0.7); EOS % 0.8 % (0-4.0); GRAN # 7.7 (1.4-6.5); LYMPH # 1.9 (1.2-3.4); MEAN CELL VOLUME 88 fl (80.0-100.0); MEAN CORPUSCULAR HGB CONC 33 g/dl (33.0-37.0); MEAN PLATELET VOLUME 9.9 fl (7.4-10.4); MONO # 0.4 (0.1-0.6); MONO % 4.2 % (1.7-9.3); PLATELET COUNT 192 K/mm3 (130-400); RED BLOOD COUNT 3.93 M/mm3 (4.10-5.30); REDCELL DISTRIBUTION WIDTH-CV 14.5 % (11.5-14.5); WHITE BLOOD COUNT 10.2 K/mm3 (4.8-10.8)
[2016-05-26 15:50] LABS: HEMATOCRIT 34.6 % (37.0-47.0); HEMOGLOBIN 11.3 g/dl (12.5-16.0); MEAN CORPUSCULAR HEMOGLOBIN 29 pg (27.0-31.0)
[2016-05-26 15:52] LABS: ADJUSTED CALCIUM 9.4 mg/dL (8.4-10.2); BILIRUBIN,TOTAL 0.8 mg/dL (0.0-1.0); CALCIUM 9.4 mg/dL (8.4-10.2); CREATININE, serum 0.65 mg/dL (0.52-1.25); POTASSIUM 5.1 mmol/L (3.4-5.0); TOTAL PROTEIN 7.3 gm/dL (6.4-8.2)
[2016-05-26 16:08] LABS: PROLACTIN 32.8 ng/mL (3.0-18.6)
[2016-05-26 18:21] VITALS: BP 132/78; PULSE 80
== END 2016-05-26 18:22 | disposition home or self-care (01) ==
LOC: COL.ER 13:42
PROVIDERS: Family Medicine
DX: S70.02XA Contusion of left hip, initial encounter (principal); S40.012A Contusion of left shoulder, initial encounter; S90.02XA Contusion of left ankle, initial encounter; R42 Dizziness and giddiness; W19.XXXA Unspecified fall, initial encounter; E10.8 Type 1 diabetes mellitus with unspecified complications; Z79.4 Long term (current) use of insulin; G40.909 Epilepsy, unspecified, not intractable, without status epilepticus
CPT/HCPCS: J1200; J1630; J2060; J2405; J2550; J7030

== ENCOUNTER 2016-06-06 18:30 | Emergency (ER) | payer MEDICARE, MEDICAID ==
[~2016-06-06] VITALS: Ht 154.9 cm; Wt 99.5 kg
[2016-06-06 18:40] VITALS: TEMP 97.3
[2016-06-06 19:30] LABS: BASO % 0.3 % (0.0-2.0); EOS # 0.2 (0.0-0.7); EOS % 1.3 % (0-4.0); GRAN # 8.1 (1.4-6.5); GRAN % 68.3 % (42.2-75.2); LYMPH % 25.2 % (20.0-51.0); MEAN CELL VOLUME 85 fl (80.0-100.0); MEAN CORPUSCULAR HGB CONC 33 g/dl (33.0-37.0); MEAN PLATELET VOLUME 9.8 fl (7.4-10.4); MONO # 0.5 (0.1-0.6); MONO % 4.4 % (1.7-9.3); PLATELET COUNT 196 K/mm3 (130-400); RED BLOOD COUNT 4.08 M/mm3 (4.10-5.30); REDCELL DISTRIBUTION WIDTH-CV 14.2 % (11.5-14.5); WHITE BLOOD COUNT 11.9 K/mm3 (4.8-10.8)
[2016-06-06 19:32] LABS: HEMATOCRIT 34.8 % (37.0-47.0); HEMOGLOBIN 11.5 g/dl (12.5-16.0); MEAN CORPUSCULAR HEMOGLOBIN 28 pg (27.0-31.0)
[2016-06-06 19:35] LABS: INR 1.2 (0.8-3.0); PROTHROMBIN TIME 12.9 SECONDS (9.7-12.8)
[2016-06-06 19:38] LABS: PARTIAL THROMBOPLASTIN TIME 33.2 SECONDS (26.0-37.0)
[2016-06-06 19:45] LABS: ADJUSTED CALCIUM 9.3 mg/dL (8.4-10.2); ALANINE AMINOTRANSFERASE 28 U/L (9-52); ALBUMIN 4.3 gm/dL (3.5-5.0); ALKALINE PHOSPHATASE 178 U/L (50-136); ANION GAP 16 mmol/L (7-16); BILIRUBIN,TOTAL 0.6 mg/dL (0.0-1.0); BLOOD UREA NITROGEN 11 mg/dL (7-17); CALCIUM 9.5 mg/dL (8.4-10.2); CARBON DIOXIDE 24 mmol/L (22-30); CHLORIDE 100 mmol/L (98-107); CREATININE, serum 0.66 mg/dL (0.52-1.25); GLUCOSE 242 mg/dL (74-106); LIPASE 31 U/L (23-300); POTASSIUM 3.8 mmol/L (3.4-5.0); SODIUM 139 mmol/L (137-145); TOTAL PROTEIN 7.3 gm/dL (6.4-8.2)
[2016-06-06] MEDS ORDERED: K-DUR20 MEQ PO (19:46)
[2016-06-06] MEDS ORDERED: SYNTHROID0.112 MG/T PO (19:47)
[2016-06-06] MEDS ORDERED: CARDURA 1MG1 MG PO (19:49)
[2016-06-06 19:57] LABS: B-TYPE NATRIURETIC PEPTIDE 28 pg/mL (0-125)
[2016-06-06 20:02] LABS: TROPONIN-I < 0.012 ng/mL (0.000-0.034)
[2016-06-06 22:45] VITALS: BP 139/74; PULSE 62
== END 2016-06-06 23:10 | disposition home or self-care (01) ==
LOC: COL.ER 18:30
PROVIDERS: Emergency Medicine
DX: R07.89 Other chest pain (principal); I10 Essential (primary) hypertension; E11.9 Type 2 diabetes mellitus without complications; Z79.4 Long term (current) use of insulin; Z86.73 Personal history of transient ischemic attack (TIA), and cerebral infarction without residual deficits
CPT/HCPCS: J1200; J1630; J2550; J7030; J7050; Q9967

== ENCOUNTER → 2016-07-09 | Outpatient (CLI) | payer MEDICARE, MEDICAID ==
[~2016-07-09] MED LIST changes: +BUSPAR5 MG PO; +CEPHALEXIN250 M1 PO; +CLEOCIN HCL300 MG PO; +LANTUS SOLOS100 U/ML SQ; +MELATONIN5 M1 SL; +MINIPRESS 1M1 MG/CAP PO; +OMEGA-3 FISH1000 MG PO; +PYRIDIUM 100MG100 MG PO; +SYNTHROID0.112 MG/T PO; +TRICOR 48MG48 MG PO; +VISTARIL 2525 MG/CAP PO
== END ==
LOC: SUN.DIA
DX: E10.42 Type 1 diabetes mellitus with diabetic polyneuropathy (principal); E10.43 Type 1 diabetes mellitus with diabetic autonomic (poly)neuropathy; K31.84 Gastroparesis; E10.65 Type 1 diabetes mellitus with hyperglycemia; Z96.41 Presence of insulin pump (external) (internal); Z79.4 Long term (current) use of insulin; E78.5 Hyperlipidemia, unspecified; I10 Essential (primary) hypertension; E03.9 Hypothyroidism, unspecified; G47.33 Obstructive sleep apnea (adult) (pediatric)

== ENCOUNTER 2016-07-10 16:54 | Emergency (ER) | payer MEDICARE, MEDICAID ==
[~2016-07-10] VITALS: Ht 154.9 cm; Wt 95.5 kg
[~2016-07-10 16:54] MED LIST changes: -BUSPAR5 MG PO; -CEPHALEXIN250 M1 PO; -CLEOCIN HCL300 MG PO; -LANTUS SOLOS100 U/ML SQ; -MELATONIN5 M1 SL; -MINIPRESS 1M1 MG/CAP PO; -OMEGA-3 FISH1000 MG PO; -PYRIDIUM 100MG100 MG PO; -TRICOR 48MG48 MG PO; -VISTARIL 2525 MG/CAP PO
[2016-07-10 16:56] VITALS: TEMP 99
[2016-07-10 17:52] LABS: BASO # 0.1 (0.0-0.2); BASO % 0.4 % (0.0-2.0); EOS # 0.2 (0.0-0.7); EOS % 1.3 % (0-4.0); GRAN # 9.6 (1.4-6.5); GRAN % 70.2 % (42.2-75.2); LYMPH # 3.2 (1.2-3.4); LYMPH % 23.2 % (20.0-51.0); MEAN CELL VOLUME 84 fl (80.0-100.0); MEAN CORPUSCULAR HEMOGLOBIN 28 pg (27.0-31.0); MEAN CORPUSCULAR HGB CONC 33 g/dl (33.0-37.0); MEAN PLATELET VOLUME 9.9 fl (7.4-10.4); MONO # 0.6 (0.1-0.6); MONO % 4.4 % (1.7-9.3); PLATELET COUNT 219 K/mm3 (130-400); RED BLOOD COUNT 4.29 M/mm3 (4.10-5.30); REDCELL DISTRIBUTION WIDTH-CV 14.7 % (11.5-14.5); WHITE BLOOD COUNT 13.7 K/mm3 (4.8-10.8)
[2016-07-10 17:54] LABS: PH 7 (5-8); URINE APPEARANCE Hazy; URINE BACTERIA Rare /hpf; URINE BILIRUBIN Negative (NEGATIVE); URINE BLOOD Negative (NEGATIVE); URINE COLOR Yellow; URINE GLUCOSE Negative (NEGATIVE); URINE KETONE Negative (NEGATIVE); URINE RBC None Seen /hpf; URINE UROBILINOGEN Negative (NEGATIVE)
[2016-07-10 18:03] LABS: ADJUSTED CALCIUM 9.1 mg/dL (8.4-10.2); ALANINE AMINOTRANSFERASE 20 U/L (9-52); ALBUMIN 4.5 gm/dL (3.5-5.0); ALKALINE PHOSPHATASE 143 U/L (50-136); ANION GAP 16 mmol/L (7-16); BILIRUBIN,TOTAL 0.6 mg/dL (0.0-1.0); BLOOD UREA NITROGEN 14 mg/dL (7-17); CALCIUM 9.5 mg/dL (8.4-10.2); CARBON DIOXIDE 25 mmol/L (22-30); CHLORIDE 101 mmol/L (98-107); CREATININE, serum 0.69 mg/dL (0.52-1.25); GLUCOSE 127 mg/dL (74-106); LIPASE 59 U/L (23-300); POTASSIUM 3.7 mmol/L (3.4-5.0); SODIUM 142 mmol/L (137-145); TOTAL PROTEIN 7.8 gm/dL (6.4-8.2)
[2016-07-10 18:17] LABS: TROPONIN-I < 0.012 ng/mL (0.000-0.034)
[2016-07-10 18:57] VITALS: BP 143/86; PULSE 87
[2016-07-10] MEDS ORDERED: TOPAMAX 100MG100 M1 PO (21:22)
[2016-07-10] MEDS ORDERED: LANTUS SOLOS100 U/ML SQ (21:23)
[2016-07-10] MEDS ORDERED: OMEGA-3 FISH1000 MG PO (21:24)
[2016-07-10] MEDS ORDERED: INDERAL 20MG20 MG PO (22:45)
[2016-07-10] MEDS ORDERED: ASPIRIN 81M81 MG/TA2 PO (22:47)
[2016-07-10] MEDS ORDERED: PRIL40 PO (22:48)
[2016-07-10] MEDS ORDERED: TRICOR 48MG48 MG PO (22:48)
[2016-07-10] MEDS ORDERED: VISTARIL 2525 MG/CAP PO (22:51)
[2016-07-10] MEDS ORDERED: TYLENOL 325MG325 MG PO (22:51)
[2016-07-10] MEDS ORDERED: MINIPRESS 1M1 MG/CAP PO (22:52)
== END 2016-07-10 19:05 | disposition home or self-care (01) ==
LOC: COL.ER 16:54
PROVIDERS: Emergency Medicine
DX: R07.9 Chest pain, unspecified (principal); R51 Headache; R10.13 Epigastric pain; R10.12 Left upper quadrant pain; F32.9 Major depressive disorder, single episode, unspecified; E10.43 Type 1 diabetes mellitus with diabetic autonomic (poly)neuropathy; K31.84 Gastroparesis; I10 Essential (primary) hypertension; Z79.4 Long term (current) use of insulin; G40.909 Epilepsy, unspecified, not intractable, without status epilepticus; G43.909 Migraine, unspecified, not intractable, without status migrainosus
CPT/HCPCS: J1170; J2405; J2550; J7030

== ENCOUNTER 2016-07-15 02:11 | Emergency (ER) | payer MEDICARE, MEDICAID ==
[~2016-07-15] VITALS: Ht 154.9 cm; Wt 100.0 kg
[~2016-07-15 02:11] MED LIST changes: +LANTUS SOLOS100 U/ML SQ; +MINIPRESS 1M1 MG/CAP PO; +OMEGA-3 FISH1000 MG PO; +TRICOR 48MG48 MG PO; +VISTARIL 2525 MG/CAP PO
[2016-07-15 02:14] VITALS: TEMP 99
[2016-07-15 02:59] LABS: BASO # 0.1 (0.0-0.2); BASO % 0.4 % (0.0-2.0); EOS # 0.1 (0.0-0.7); EOS % 1.2 % (0-4.0); GRAN # 6.8 (1.4-6.5); GRAN % 59.7 % (42.2-75.2); HEMOGLOBIN 12.2 g/dl (12.5-16.0); LYMPH # 3.7 (1.2-3.4); LYMPH % 32.6 % (20.0-51.0); MEAN CELL VOLUME 85 fl (80.0-100.0); MEAN CORPUSCULAR HEMOGLOBIN 29 pg (27.0-31.0); MEAN CORPUSCULAR HGB CONC 34 g/dl (33.0-37.0); MEAN PLATELET VOLUME 9.6 fl (7.4-10.4); MONO # 0.6 (0.1-0.6); MONO % 5.6 % (1.7-9.3); PLATELET COUNT 209 K/mm3 (130-400); RED BLOOD COUNT 4.25 M/mm3 (4.10-5.30); REDCELL DISTRIBUTION WIDTH-CV 14.6 % (11.5-14.5); WHITE BLOOD COUNT 11.3 K/mm3 (4.8-10.8)
[2016-07-15 03:01] LABS: HEMATOCRIT 36.3 % (37.0-47.0)
[2016-07-15 03:17] LABS: ADJUSTED CALCIUM 9.2 mg/dL (8.4-10.2); ALBUMIN 4.4 gm/dL (3.5-5.0); BILIRUBIN,TOTAL 0.4 mg/dL (0.0-1.0); C-REACTIVE PROTEIN 1.5 mg/dL (0.0-0.9); CALCIUM 9.5 mg/dL (8.4-10.2); CREATININE, serum 0.67 mg/dL (0.52-1.25); POTASSIUM 3.2 mmol/L (3.4-5.0); TOTAL PROTEIN 7.5 gm/dL (6.4-8.2)
[2016-07-15 08:19] VITALS: BP 125/71; PULSE 80
== END 2016-07-15 08:21 | disposition home or self-care (01) ==
LOC: COL.ER 02:11
PROVIDERS: Family Medicine
DX: E11.649 Type 2 diabetes mellitus with hypoglycemia without coma (principal); Z79.4 Long term (current) use of insulin; Z96.41 Presence of insulin pump (external) (internal); G44.209 Tension-type headache, unspecified, not intractable; R11.0 Nausea
CPT/HCPCS: J0595; J2550

== ENCOUNTER 2016-07-20 02:04 | Emergency (ER) | payer MEDICARE, MEDICAID ==
[~2016-07-20] VITALS: Ht 154.9 cm; Wt 100.0 kg
[2016-07-20 02:07] VITALS: BP 125/65; TEMP 98.3
[2016-07-20 03:32] LABS: PH 7 (5-8); URINE APPEARANCE Hazy; URINE BILIRUBIN Negative (NEGATIVE); URINE BLOOD Negative (NEGATIVE); URINE COLOR Yellow; URINE GLUCOSE Negative (NEGATIVE); URINE KETONE Negative (NEGATIVE); URINE UROBILINOGEN Negative (NEGATIVE)
[2016-07-20 03:33] LABS: URINE RBC 0-2 /hpf; URINE WBC 0-2 /hpf
[2016-07-20 04:04] VITALS: PULSE 75
== END 2016-07-20 04:05 | disposition home or self-care (01) ==
LOC: COL.ER 02:04
PROVIDERS: Physician Assistant
DX: M54.89 Other dorsalgia (principal); I10 Essential (primary) hypertension; E11.40 Type 2 diabetes mellitus with diabetic neuropathy, unspecified; Z79.4 Long term (current) use of insulin; E11.43 Type 2 diabetes mellitus with diabetic autonomic (poly)neuropathy; K31.84 Gastroparesis; F41.9 Anxiety disorder, unspecified; G40.909 Epilepsy, unspecified, not intractable, without status epilepticus
CPT/HCPCS: J1170; J2060; J2550

== ENCOUNTER 2016-07-21 02:46 | Emergency (ER) | payer MEDICARE, MEDICAID ==
[~2016-07-21] VITALS: Ht 154.9 cm; Wt 100.0 kg
[2016-07-21 02:51] VITALS: TEMP 98.4
[2016-07-21 04:25] VITALS: BP 132/69; PULSE 79
== END 2016-07-21 04:40 | disposition home or self-care (01) ==
LOC: COL.ER 02:46
DX: R10.9 Unspecified abdominal pain (principal); E11.9 Type 2 diabetes mellitus without complications; K21.9 Gastro-esophageal reflux disease without esophagitis; E07.9 Disorder of thyroid, unspecified; I10 Essential (primary) hypertension; Z79.4 Long term (current) use of insulin; Z86.73 Personal history of transient ischemic attack (TIA), and cerebral infarction without residual deficits
CPT/HCPCS: J1170; J2550

== ENCOUNTER 2016-07-25 19:18 | Emergency (ER) | payer MEDICARE, MEDICAID ==
[~2016-07-25] VITALS: Ht 154.9 cm; Wt 100.0 kg
[2016-07-25 19:24] VITALS: TEMP 98.8
[2016-07-25] MEDS ORDERED: ZOFRAN 4MG T4 MG/TAB PO (20:13)
[2016-07-25 20:46] VITALS: BP 122/72; PULSE 86
== END 2016-07-25 20:48 | disposition home or self-care (01) ==
LOC: COL.ER 19:18
DX: G89.29 Other chronic pain (principal); R10.13 Epigastric pain; K31.84 Gastroparesis; K21.9 Gastro-esophageal reflux disease without esophagitis; I10 Essential (primary) hypertension; E10.9 Type 1 diabetes mellitus without complications; F31.9 Bipolar disorder, unspecified; F41.9 Anxiety disorder, unspecified; E07.9 Disorder of thyroid, unspecified; Z90.49 Acquired absence of other specified parts of digestive tract; Z98.84 Bariatric surgery status; Z86.73 Personal history of transient ischemic attack (TIA), and cerebral infarction without residual deficits; Z79.82 Long term (current) use of aspirin; Z79.4 Long term (current) use of insulin; Z96.41 Presence of insulin pump (external) (internal)
CPT/HCPCS: J1200; J1630

== ENCOUNTER → 2016-07-29 | Outpatient (CLI) | payer MEDICARE, MEDICAID ==
[~2016-07-29] MED LIST changes: +BUSPAR5 MG PO; +CEPHALEXIN250 M1 PO; +CLEOCIN HCL300 MG PO; +MELATONIN5 M1 SL; +PYRIDIUM 100MG100 MG PO
== END ==
LOC: SUN.DIA 09:20
DX: E10.42 Type 1 diabetes mellitus with diabetic polyneuropathy (principal); E10.43 Type 1 diabetes mellitus with diabetic autonomic (poly)neuropathy; E10.65 Type 1 diabetes mellitus with hyperglycemia; K31.84 Gastroparesis; Z79.4 Long term (current) use of insulin; Z96.41 Presence of insulin pump (external) (internal); Z71.3 Dietary counseling and surveillance; G47.33 Obstructive sleep apnea (adult) (pediatric); Z97.8 Presence of other specified devices; I10 Essential (primary) hypertension; E78.5 Hyperlipidemia, unspecified
CPT/HCPCS: G0108

== ENCOUNTER 2016-08-01 23:47 | Inpatient (IN) | payer MEDICARE, MEDICAID ==
[~2016-08-01] VITALS: Ht 154.9 cm; Wt 103.1 kg
[~2016-08-01 23:47] MED LIST changes: -BUSPAR5 MG PO; -CEPHALEXIN250 M1 PO; -CLEOCIN HCL300 MG PO; -MELATONIN5 M1 SL; -PYRIDIUM 100MG100 MG PO
[2016-08-01] MEDS ORDERED: CARDURA 2MG2 MG PO (23:59)
[2016-08-02] VITALS (286 sets, daily range): BP systolic 121–154; BP diastolic 47–80; PULSE 70–110; TEMP 97–98.8; O2SAT 75–98
[2016-08-02] MEDS ORDERED: LOPRESSOR 550 MG/TAB PO
[2016-08-02] MEDS ORDERED: VASCEPA1 GM PO (00:02)
[2016-08-02] MEDS ORDERED: MAG-OX 400400 MG/TAB PO (00:03)
[2016-08-02] MEDS ORDERED: MINIPRESS 1M1 MG/CAP PO (00:05)
[2016-08-02] MEDS ORDERED: MELATONIN5 M1 SL (00:05)
[2016-08-02 00:43] LABS: BASO % 0.4 % (0.0-2.0); EOS # 0.1 (0.0-0.7); EOS % 0.8 % (0-4.0); GRAN # 7.7 (1.4-6.5); GRAN % 70.7 % (42.2-75.2); LYMPH # 2.6 (1.2-3.4); LYMPH % 23.9 % (20.0-51.0); MEAN CELL VOLUME 86 fl (80.0-100.0); MEAN CORPUSCULAR HGB CONC 33 g/dl (33.0-37.0); MEAN PLATELET VOLUME 10.2 fl (7.4-10.4); MONO # 0.4 (0.1-0.6); MONO % 3.7 % (1.7-9.3); PLATELET COUNT 171 K/mm3 (130-400); RED BLOOD COUNT 4.08 M/mm3 (4.10-5.30); REDCELL DISTRIBUTION WIDTH-CV 14.7 % (11.5-14.5); WHITE BLOOD COUNT 10.9 K/mm3 (4.8-10.8)
[2016-08-02 00:46] LABS: HEMATOCRIT 35.1 % (37.0-47.0); HEMOGLOBIN 11.5 g/dl (12.5-16.0); MEAN CORPUSCULAR HEMOGLOBIN 28 pg (27.0-31.0)
[2016-08-02 00:55] LABS: ANION GAP 19 mmol/L (7-16); BLOOD UREA NITROGEN 13 mg/dL (7-17); C-REACTIVE PROTEIN 1.9 mg/dL (0.0-0.9); CALCIUM 8.9 mg/dL (8.4-10.2); CARBON DIOXIDE 18 mmol/L (22-30); CHLORIDE 100 mmol/L (98-107); CREATININE, serum 0.55 mg/dL (0.52-1.25); POTASSIUM 4.3 mmol/L (3.4-5.0); SODIUM 137 mmol/L (137-145)
[2016-08-02 01:02] LABS: GLUCOSE 540 mg/dL (74-106)
[2016-08-02 01:04] LABS: ERYTHROCYTE SEDIMENTATION RATE 44 mm/hr (0-20)
[2016-08-02 06:37] LABS: ADJUSTED CALCIUM 8.5 mg/dL (8.4-10.2); BILIRUBIN,TOTAL 0.5 mg/dL (0.0-1.0); CALCIUM 8.5 mg/dL (8.4-10.2); CREATININE, serum 0.55 mg/dL (0.52-1.25); TOTAL PROTEIN 6.8 gm/dL (6.4-8.2)
[2016-08-02 11:00] LABS: PH 6 (5-8); URINE APPEARANCE Hazy; URINE BACTERIA Rare /hpf; URINE BILIRUBIN Negative (NEGATIVE); URINE BLOOD Negative (NEGATIVE); URINE COLOR Yellow; URINE GLUCOSE 3+ (NEGATIVE); URINE KETONE Negative (NEGATIVE); URINE RBC 0-2 /hpf; URINE UROBILINOGEN Negative (NEGATIVE); URINE WBC 0-2 /hpf
[2016-08-03 03:29] VITALS: BP 113/64; PULSE 80; TEMP 98.3
[2016-08-03 08:28] VITALS: BP 129/63; PULSE 90; TEMP 98.1
[2016-08-03 12:20] VITALS: BP 114/61; PULSE 78; TEMP 98.8
[2016-08-03] MEDS ORDERED: CLEOCIN HCL300 MG PO (15:27)
[2016-08-03] MEDS ORDERED: ULTRAM 50MG TAB50 MG PO (15:47)
[2016-08-03 15:50] VITALS: BP 99/63; PULSE 82; TEMP 98.6
== END 2016-08-03 16:47 | disposition home or self-care (01) | DRG 607 ==
LOC: COL.ER 23:47 → MEDICAL 08-02 02:49 → ICU 08-02 02:49 → MEDICAL 08-02 18:20
PROVIDERS: Emergency Medicine; Family Medicine
DX: B35.3 Tinea pedis (principal); Z68.41 Body mass index [BMI] 40.0-44.9, adult; E11.65 Type 2 diabetes mellitus with hyperglycemia; E11.42 Type 2 diabetes mellitus with diabetic polyneuropathy; E11.43 Type 2 diabetes mellitus with diabetic autonomic (poly)neuropathy; K31.84 Gastroparesis; I10 Essential (primary) hypertension; Z79.4 Long term (current) use of insulin; E66.01 Morbid (severe) obesity due to excess calories; B35.1 Tinea unguium; Z76.5 Malingerer [conscious simulation]
CPT/HCPCS: 99223-AI; 99239; J0295; J1170; J1815; J2405; J2550; J7030; Q9967

== ENCOUNTER 2016-08-05 13:40 | Emergency (ER) | payer MEDICARE, MEDICAID ==
[~2016-08-05] VITALS: Ht 154.9 cm; Wt 97.7 kg
[~2016-08-05 13:40] MED LIST changes: +CLEOCIN HCL300 MG PO; +MELATONIN5 M1 SL
[2016-08-05 13:51] VITALS: TEMP 98.3
[2016-08-05 15:51] LABS: BASO # 0.1 (0.0-0.2); BASO % 0.4 % (0.0-2.0); EOS # 0.1 (0.0-0.7); EOS % 0.9 % (0-4.0); GRAN # 10.3 (1.4-6.5); GRAN % 78.8 % (42.2-75.2); HEMOGLOBIN 12.2 g/dl (12.5-16.0); LYMPH # 2.1 (1.2-3.4); LYMPH % 15.8 % (20.0-51.0); MEAN CELL VOLUME 84 fl (80.0-100.0); MEAN CORPUSCULAR HEMOGLOBIN 28 pg (27.0-31.0); MEAN CORPUSCULAR HGB CONC 33 g/dl (33.0-37.0); MEAN PLATELET VOLUME 9.6 fl (7.4-10.4); MONO # 0.5 (0.1-0.6); MONO % 3.6 % (1.7-9.3); PLATELET COUNT 203 K/mm3 (130-400); RED BLOOD COUNT 4.34 M/mm3 (4.10-5.30); REDCELL DISTRIBUTION WIDTH-CV 14.6 % (11.5-14.5)
[2016-08-05 15:53] LABS: HEMATOCRIT 36.6 % (37.0-47.0)
[2016-08-05 16:08] LABS: ADJUSTED CALCIUM 9.3 mg/dL (8.4-10.2); ALANINE AMINOTRANSFERASE 28 U/L (9-52); ALBUMIN 4.5 gm/dL (3.5-5.0); ALKALINE PHOSPHATASE 216 U/L (50-136); ANION GAP 18 mmol/L (7-16); BILIRUBIN,TOTAL 0.8 mg/dL (0.0-1.0); BLOOD UREA NITROGEN 14 mg/dL (7-17); C-REACTIVE PROTEIN 2.3 mg/dL (0.0-0.9); CALCIUM 9.7 mg/dL (8.4-10.2); CARBON DIOXIDE 19 mmol/L (22-30); CHLORIDE 98 mmol/L (98-107); CREATININE, serum 0.57 mg/dL (0.52-1.25); GLUCOSE 346 mg/dL (74-106); POTASSIUM 4.2 mmol/L (3.4-5.0); SODIUM 135 mmol/L (137-145); TOTAL PROTEIN 7.7 gm/dL (6.4-8.2)
[2016-08-05 16:20] LABS: ERYTHROCYTE SEDIMENTATION RATE 40 mm/hr (0-20)
[2016-08-05 17:05] VITALS: BP 133/86; PULSE 84
== END 2016-08-05 17:05 | disposition home or self-care (01) ==
LOC: COL.ER 13:40
PROVIDERS: Emergency Medicine
DX: M79.671 Pain in right foot (principal); L03.115 Cellulitis of right lower limb; E11.9 Type 2 diabetes mellitus without complications; F43.10 Post-traumatic stress disorder, unspecified; G89.29 Other chronic pain; Z79.4 Long term (current) use of insulin
CPT/HCPCS: J1815

== ENCOUNTER 2016-08-23 02:05 | Emergency (ER) | payer MEDICARE, MEDICAID ==
[~2016-08-23] VITALS: Ht 154.9 cm; Wt 96.8 kg
[2016-08-23 02:11] VITALS: TEMP 99.1
[2016-08-23 02:37] LABS: BASO % 0.3 % (0.0-2.0); EOS # 0.1 (0.0-0.7); EOS % 0.9 % (0-4.0); GRAN # 7.4 (1.4-6.5); GRAN % 67.8 % (42.2-75.2); LYMPH # 2.8 (1.2-3.4); LYMPH % 25.8 % (20.0-51.0); MEAN CELL VOLUME 84 fl (80.0-100.0); MEAN CORPUSCULAR HEMOGLOBIN 29 pg (27.0-31.0); MEAN CORPUSCULAR HGB CONC 34 g/dl (33.0-37.0); MEAN PLATELET VOLUME 11.3 fl (7.4-10.4); MONO # 0.5 (0.1-0.6); MONO % 4.5 % (1.7-9.3); RED BLOOD COUNT 4.17 M/mm3 (4.10-5.30); WHITE BLOOD COUNT 10.9 K/mm3 (4.8-10.8)
[2016-08-23 02:40] LABS: HEMATOCRIT 34.9 % (37.0-47.0)
[2016-08-23 02:41] LABS: PLATELET COUNT 212 K/mm3 (130-400)
[2016-08-23 02:58] LABS: COLLECTION METHOD CATHETER
[2016-08-23 03:03] LABS: MUCOUS Present /lpf; PH 5 (5-8); URINE APPEARANCE Clear; URINE BACTERIA None Seen /hpf; URINE BILIRUBIN Negative (NEGATIVE); URINE BLOOD 1+ (NEGATIVE); URINE COLOR Yellow; URINE GLUCOSE 3+ (NEGATIVE); URINE KETONE Negative (NEGATIVE); URINE LEUKOCYTE ESTERASE Negative (NEGATIVE); URINE PROTEIN(semi-quant) Negative (NEGATIVE); URINE RBC 0-2 /hpf; URINE UROBILINOGEN Negative (NEGATIVE)
[2016-08-23] MEDS ORDERED: CEPHALEXIN250 M1 PO (03:09)
[2016-08-23 03:12] LABS: ADJUSTED CALCIUM 8.8 mg/dL (8.4-10.2); ALBUMIN 4.1 gm/dL (3.5-5.0); BILIRUBIN,TOTAL 0.5 mg/dL (0.0-1.0); CALCIUM 8.9 mg/dL (8.4-10.2); CREATININE, serum 0.57 mg/dL (0.52-1.25); POTASSIUM 3.6 mmol/L (3.4-5.0)
[2016-08-23] MEDS ORDERED: PHENERGAN 25 TA25 MG PO (03:52)
[2016-08-23] MEDS ORDERED: PHENERGAN25 MG RC (03:52)
[2016-08-23 04:12] VITALS: BP 147/99; PULSE 86
== END 2016-08-23 04:20 | disposition home or self-care (01) ==
LOC: COL.ER 02:05
PROVIDERS: Emergency Medicine
DX: R10.2 Pelvic and perineal pain (principal); R10.31 Right lower quadrant pain; R10.32 Left lower quadrant pain; I10 Essential (primary) hypertension; E10.43 Type 1 diabetes mellitus with diabetic autonomic (poly)neuropathy; K31.84 Gastroparesis; Z79.4 Long term (current) use of insulin; E10.65 Type 1 diabetes mellitus with hyperglycemia; Z96.41 Presence of insulin pump (external) (internal); N39.0 Urinary tract infection, site not specified; F43.10 Post-traumatic stress disorder, unspecified
CPT/HCPCS: J1170; J1815; J2405; J2550; J7030; Q9967

== ENCOUNTER 2016-08-29 20:38 | Emergency (ER) | payer MEDICARE, MEDICAID ==
[~2016-08-29] VITALS: Ht 154.9 cm; Wt 95.9 kg
[~2016-08-29 20:38] MED LIST changes: +CEPHALEXIN250 M1 PO
[2016-08-29 20:39] VITALS: BP 147/69; PULSE 84; TEMP 99.5
== END 2016-08-29 21:45 | disposition home or self-care (01) ==
LOC: COL.ER 20:38
DX: S40.012A Contusion of left shoulder, initial encounter (principal); S40.022A Contusion of left upper arm, initial encounter; S50.02XA Contusion of left elbow, initial encounter; E11.9 Type 2 diabetes mellitus without complications; I10 Essential (primary) hypertension; F31.9 Bipolar disorder, unspecified; F41.9 Anxiety disorder, unspecified; M19.90 Unspecified osteoarthritis, unspecified site; Z79.4 Long term (current) use of insulin; Z79.82 Long term (current) use of aspirin; Z90.710 Acquired absence of both cervix and uterus; Z98.51 Tubal ligation status; Z90.49 Acquired absence of other specified parts of digestive tract; Z89.012 Acquired absence of left thumb; Z90.89 Acquired absence of other organs; Z98.890 Other specified postprocedural states; W06.XXXA Fall from bed, initial encounter; Y92.009 Unspecified place in unspecified non-institutional (private) residence as the place of occurrence of the external cause

== ENCOUNTER 2016-09-05 05:43 | Emergency (ER) | payer MEDICARE, MEDICAID ==
[~2016-09-05] VITALS: Ht 154.9 cm; Wt 97.7 kg
[2016-09-05 05:45] VITALS: TEMP 99.9
[2016-09-05] MEDS ORDERED: BUSPAR5 MG PO (06:01)
[2016-09-05] MEDS ORDERED: PYRIDIUM 100MG100 MG PO (06:50)
[2016-09-05 07:44] LABS: BASO % 0.4 % (0.0-2.0); EOS # 0.1 (0.0-0.7); EOS % 1.1 % (0-4.0); GRAN # 4.2 (1.4-6.5); GRAN % 55.6 % (42.2-75.2); HEMOGLOBIN 12.1 g/dl (12.5-16.0); LYMPH # 2.9 (1.2-3.4); LYMPH % 38.6 % (20.0-51.0); MEAN CELL VOLUME 83 fl (80.0-100.0); MEAN CORPUSCULAR HEMOGLOBIN 29 pg (27.0-31.0); MEAN CORPUSCULAR HGB CONC 35 g/dl (33.0-37.0); MEAN PLATELET VOLUME 11.9 fl (7.4-10.4); MONO # 0.3 (0.1-0.6); MONO % 3.4 % (1.7-9.3); RED BLOOD COUNT 4.21 M/mm3 (4.10-5.30); REDCELL DISTRIBUTION WIDTH-CV 15.3 % (11.5-14.5); WHITE BLOOD COUNT 7.6 K/mm3 (4.8-10.8)
[2016-09-05 07:54] LABS: ADJUSTED CALCIUM 8.8 mg/dL (8.4-10.2); BILIRUBIN,TOTAL 0.5 mg/dL (0.0-1.0); C-REACTIVE PROTEIN 1.6 mg/dL (0.0-0.9); CALCIUM 8.8 mg/dL (8.4-10.2); CREATININE, serum 0.48 mg/dL (0.52-1.25); POTASSIUM 3.6 mmol/L (3.4-5.0)
[2016-09-05 08:18] LABS: HEMATOCRIT 35.1 % (37.0-47.0)
[2016-09-05 08:19] LABS: PLATELET COUNT 76 K/mm3 (130-400)
[2016-09-05 09:00] VITALS: BP 163/96; PULSE 115
== END 2016-09-05 09:05 | disposition home or self-care (01) ==
LOC: COL.ER 05:43
PROVIDERS: Emergency Medicine
DX: R10.11 Right upper quadrant pain (principal); E10.43 Type 1 diabetes mellitus with diabetic autonomic (poly)neuropathy; K31.84 Gastroparesis; Z79.4 Long term (current) use of insulin; I10 Essential (primary) hypertension; K21.9 Gastro-esophageal reflux disease without esophagitis; G40.909 Epilepsy, unspecified, not intractable, without status epilepticus; E78.5 Hyperlipidemia, unspecified; F41.9 Anxiety disorder, unspecified; F32.9 Major depressive disorder, single episode, unspecified
CPT/HCPCS: J1170; J2550; J7030

== ENCOUNTER 2016-09-08 05:37 | Emergency (ER) | payer MEDICARE, MEDICAID ==
[~2016-09-08] VITALS: Ht 154.9 cm; Wt 118.6 kg
[~2016-09-08 05:37] MED LIST changes: +BUSPAR5 MG PO; +PYRIDIUM 100MG100 MG PO
[2016-09-08 05:41] VITALS: BP 166/82; PULSE 110; TEMP 100
[2016-09-08 06:49] LABS: BASO # 0.1 (0.0-0.2); BASO % 0.5 % (0.0-2.0); EOS # 0.1 (0.0-0.7); GRAN # 7.2 (1.4-6.5); GRAN % 70.7 % (42.2-75.2); HEMOGLOBIN 12.4 g/dl (12.5-16.0); LYMPH # 2.3 (1.2-3.4); MEAN CELL VOLUME 84 fl (80.0-100.0); MEAN CORPUSCULAR HEMOGLOBIN 29 pg (27.0-31.0); MEAN CORPUSCULAR HGB CONC 34 g/dl (33.0-37.0); MEAN PLATELET VOLUME 9.5 fl (7.4-10.4); MONO # 0.4 (0.1-0.6); MONO % 4.3 % (1.7-9.3); REDCELL DISTRIBUTION WIDTH-CV 14.6 % (11.5-14.5); WHITE BLOOD COUNT 10.1 K/mm3 (4.8-10.8)
[2016-09-08 06:51] LABS: HEMATOCRIT 36.3 % (37.0-47.0)
[2016-09-08 06:52] LABS: PLATELET COUNT 191 K/mm3 (130-400)
[2016-09-08 07:05] LABS: ADJUSTED CALCIUM 9.2 mg/dL (8.4-10.2); ALBUMIN 4.4 gm/dL (3.5-5.0); BILIRUBIN,TOTAL 0.6 mg/dL (0.0-1.0); C-REACTIVE PROTEIN 2.4 mg/dL (0.0-0.9); CALCIUM 9.5 mg/dL (8.4-10.2); CREATININE, serum 0.51 mg/dL (0.52-1.25); POTASSIUM 3.5 mmol/L (3.4-5.0); TOTAL PROTEIN 7.7 gm/dL (6.4-8.2)
[2016-09-08 07:09] LABS: ERYTHROCYTE SEDIMENTATION RATE 38 mm/hr (0-20)
== END 2016-09-08 07:45 | disposition home or self-care (01) ==
LOC: COL.ER 05:37
PROVIDERS: Emergency Medicine
DX: R10.10 Upper abdominal pain, unspecified (principal); E11.9 Type 2 diabetes mellitus without complications; G40.909 Epilepsy, unspecified, not intractable, without status epilepticus; Z79.4 Long term (current) use of insulin; Z79.82 Long term (current) use of aspirin
CPT/HCPCS: J1630; J2405; J7030

== ENCOUNTER → 2016-09-09 | Outpatient (CLI) | payer MEDICARE, MEDICAID | LOC: SUN.DIA 09:12 | DX: E10.40 Type 1 diabetes mellitus with diabetic neuropathy, unspecified (principal); Z79.4 Long term (current) use of insulin; Z96.41 Presence of insulin pump (external) (internal); E78.5 Hyperlipidemia, unspecified; E03.9 Hypothyroidism, unspecified; I10 Essential (primary) hypertension; E66.9 Obesity, unspecified; Z68.39 Body mass index [BMI] 39.0-39.9, adult; Z71.3 Dietary counseling and surveillance | CPT/HCPCS: G0108 ==

== ENCOUNTER → 2017-01-13 | Outpatient (CLI) | payer MEDICARE, MEDICAID | LOC: SUN.DIA 10:06 | DX: E10.40 Type 1 diabetes mellitus with diabetic neuropathy, unspecified (principal); Z79.4 Long term (current) use of insulin; Z96.41 Presence of insulin pump (external) (internal); E78.5 Hyperlipidemia, unspecified; I10 Essential (primary) hypertension; E03.9 Hypothyroidism, unspecified; E66.9 Obesity, unspecified; Z68.41 Body mass index [BMI] 40.0-44.9, adult; Z71.3 Dietary counseling and surveillance ==

== ENCOUNTER 2017-03-07 17:52 | Emergency (ER) | payer MEDICARE, MEDICAID, OTHER ==
[~2017-03-07] VITALS: Ht 154.9 cm; Wt 108.2 kg
[2017-03-07 19:31] LABS: BASO % 0.1 % (0.0-2.0); EOS % 0.2 % (0-4.0); GRAN # 9.4 (1.4-6.5); GRAN % 73.9 % (42.2-75.2); LYMPH # 2.5 (1.2-3.4); LYMPH % 19.9 % (20.0-51.0); MEAN CELL VOLUME 84 fl (80.0-100.0); MEAN CORPUSCULAR HGB CONC 33 g/dl (33.0-37.0); MEAN PLATELET VOLUME 9.9 fl (7.4-10.4); MONO # 0.6 (0.1-0.6); PLATELET COUNT 181 K/mm3 (130-400)
[2017-03-07 19:34] LABS: HEMATOCRIT 36.2 % (37.0-47.0); HEMOGLOBIN 11.8 g/dl (12.5-16.0); MEAN CORPUSCULAR HEMOGLOBIN 27 pg (27.0-31.0)
[2017-03-07 19:39] LABS: ALANINE AMINOTRANSFERASE 50 U/L (9-52); ALBUMIN 4.5 gm/dL (3.5-5.0); ALKALINE PHOSPHATASE 240 U/L (50-136); ANION GAP 12 mmol/L (7-16); AST,SGOT 36 U/L (15-37); BILIRUBIN,TOTAL 0.3 mg/dL (0.0-1.0); BLOOD UREA NITROGEN 15 mg/dL (7-17); CALCIUM 9.7 mg/dL (8.4-10.2); CARBON DIOXIDE 22 mmol/L (22-30); CHLORIDE 105 mmol/L (98-107); CREATININE, serum 0.59 mg/dL (0.52-1.25); GLUCOSE 209 mg/dL (74-106); LIPASE 59 U/L (23-300); MAGNESIUM 1.6 mg/dL (1.6-2.3); PHOSPHOROUS 3.4 mg/dL (2.5-4.5); POTASSIUM 3.6 mmol/L (3.4-5.0); SODIUM 140 mmol/L (137-145); TOTAL PROTEIN 7.7 gm/dL (6.4-8.2)
[2017-03-07 19:40] LABS: ACETAMINOPHEN < 10 ug/mL (10-30); ALCOHOL(ethanol),MEDICAL < 10 mg/dL; SALICYLATE < 1.0 mg/dL
[2017-03-07 19:54] LABS: TRICYCLIC ANTIDEPRESS URINE NEGATIVE
[2017-03-07 20:08] LABS: TSH w REFLEX 0.965 uIU/mL (0.465-4.680)
[2017-03-07] MEDS ORDERED: NEURONTIN300 MG/CAP PO (23:39)
[2017-03-07] MEDS ORDERED: NOVOLOG 100U100 U/M1 SQ (23:43)
[2017-03-08] MEDS ORDERED: PERIACTIN 4MG TA4 MG PO (00:30)
[2017-03-08] MEDS ORDERED: DESYREL 100MG100 MG PO (00:31)
[2017-03-08] MEDS ORDERED: ABILIFY20 MG PO (00:32)
[2017-03-08] MEDS ORDERED: ZOLOFT 100MG100 MG PO (00:33)
[2017-03-08] MEDS ORDERED: ATARAX 25MG25 MG/TAB PO (00:33)
[2017-03-08 22:10] VITALS: TEMP 98
[2017-03-09 09:22] LABS: COLLECTION METHOD CLEAN CATCH
[2017-03-09 09:34] LABS: MUCOUS Present /lpf; PH 5 (5-8); URINE APPEARANCE Hazy; URINE BACTERIA Rare /hpf; URINE BILIRUBIN Negative (NEGATIVE); URINE BLOOD Negative (NEGATIVE); URINE COLOR Yellow; URINE GLUCOSE Negative (NEGATIVE); URINE KETONE Negative (NEGATIVE); URINE LEUKOCYTE ESTERASE Negative (NEGATIVE); URINE NITRATE Negative (NEGATIVE); URINE PROTEIN(semi-quant) Negative (NEGATIVE); URINE RBC 0-2 /hpf; URINE UROBILINOGEN Negative (NEGATIVE)
[2017-03-09 18:25] VITALS: BP 171/91; PULSE 99
== END 2017-03-09 19:00 ==
LOC: COL.ER 17:52
PROVIDERS: Emergency Medicine
DX: F32.9 Major depressive disorder, single episode, unspecified (principal); R45.851 Suicidal ideations; E11.43 Type 2 diabetes mellitus with diabetic autonomic (poly)neuropathy; K31.84 Gastroparesis; I10 Essential (primary) hypertension; K21.9 Gastro-esophageal reflux disease without esophagitis; E11.649 Type 2 diabetes mellitus with hypoglycemia without coma; F43.10 Post-traumatic stress disorder, unspecified; Z96.41 Presence of insulin pump (external) (internal); Z88.5 Allergy status to narcotic agent; Z88.8 Allergy status to other drugs, medicaments and biological substances; Z79.82 Long term (current) use of aspirin
CPT/HCPCS: J1815

== ENCOUNTER 2017-05-03 09:16 | Emergency (ER) | payer MEDICARE, MEDICAID ==
[~2017-05-03] VITALS: Ht 154.9 cm; Wt 107.3 kg
[~2017-05-03 09:16] MED LIST changes: +ABILIFY20 MG PO; +ATARAX 25MG25 MG/TAB PO; +COMPAZINE 110 MG/TAB PO; +COZAAR 25MG25 MG/TAB PO; +DESYREL 100MG100 MG PO; +LIPITOR 80MG80 MG PO; +NEURONTIN300 MG/CAP PO; +PERIACTIN 4MG TA4 MG PO; +ZANAFLEX 4MG TAB4 MG PO; +ZANAFLEX2 MG PO; +ZOLOFT 100MG100 MG PO
[2017-05-03] MEDS ORDERED: TYLENOL 500MG500 MG PO (09:32)
[2017-05-03] MEDS ORDERED: LOPRESSOR 550 MG/TAB PO (09:38)
[2017-05-03] MEDS ORDERED: MINIPRESS 1M1 MG/CAP PO (09:40)
[2017-05-03] MEDS ORDERED: DESYREL 100MG100 MG PO (09:40)
[2017-05-03 10:59] LABS: BASO # 0.1 (0.0-0.2); BASO % 0.5 % (0.0-2.0); EOS # 0.1 (0.0-0.7); EOS % 1.3 % (0-4.0); GRAN # 5.8 (1.4-6.5); GRAN % 51.3 % (42.2-75.2); LYMPH # 4.5 (1.2-3.4); LYMPH % 39.9 % (20.0-51.0); MEAN CELL VOLUME 83 fl (80.0-100.0); MEAN CORPUSCULAR HGB CONC 32 g/dl (33.0-37.0); MEAN PLATELET VOLUME 10.2 fl (7.4-10.4); MONO # 0.6 (0.1-0.6); MONO % 5.2 % (1.7-9.3); PLATELET COUNT 119 K/mm3 (130-400); RED BLOOD COUNT 4.27 M/mm3 (4.10-5.30); REDCELL DISTRIBUTION WIDTH-CV 16.5 % (11.5-14.5)
[2017-05-03 11:06] LABS: HEMATOCRIT 35.6 % (37.0-47.0); HEMOGLOBIN 11.5 g/dl (12.5-16.0); MEAN CORPUSCULAR HEMOGLOBIN 27 pg (27.0-31.0)
[2017-05-03 11:15] LABS: ALANINE AMINOTRANSFERASE 65 U/L (9-52); ALBUMIN 4.1 gm/dL (3.5-5.0); ALKALINE PHOSPHATASE 332 U/L (50-136); ANION GAP 11 mmol/L (7-16); AST,SGOT 90 U/L (15-37); BILIRUBIN,TOTAL 0.4 mg/dL (0.0-1.0); BLOOD UREA NITROGEN 12 mg/dL (7-17); CALCIUM 9.2 mg/dL (8.4-10.2); CARBON DIOXIDE 22 mmol/L (22-30); CHLORIDE 101 mmol/L (98-107); CREATININE, serum 0.69 mg/dL (0.52-1.25); GLUCOSE 357 mg/dL (74-106); POTASSIUM 4.7 mmol/L (3.4-5.0); SODIUM 135 mmol/L (137-145); TOTAL PROTEIN 7.4 gm/dL (6.4-8.2)
[2017-05-03 11:17] LABS: INR 1.2 (0.8-3.0); PROTHROMBIN TIME 13.5 SECONDS (9.7-12.8)
[2017-05-03 11:20] LABS: PARTIAL THROMBOPLASTIN TIME 28.3 SECONDS (26.0-37.0)
[2017-05-03 11:33] LABS: TROPONIN-I < 0.012 ng/mL (0.000-0.034)
[2017-05-03 15:51] VITALS: BP 116/71; PULSE 74
== END 2017-05-03 16:01 | disposition home or self-care (01) ==
LOC: COL.ER 09:16
PROVIDERS: Emergency Medicine
DX: R07.89 Other chest pain (principal); R06.02 Shortness of breath; I10 Essential (primary) hypertension; E78.5 Hyperlipidemia, unspecified; F41.9 Anxiety disorder, unspecified; K21.9 Gastro-esophageal reflux disease without esophagitis; F31.9 Bipolar disorder, unspecified; E11.43 Type 2 diabetes mellitus with diabetic autonomic (poly)neuropathy; K31.84 Gastroparesis; G43.909 Migraine, unspecified, not intractable, without status migrainosus; Z79.82 Long term (current) use of aspirin; Z79.4 Long term (current) use of insulin
CPT/HCPCS: J0780; J1200; J2270; J7030; Q9967

== ENCOUNTER → 2017-05-04 | Outpatient (CLI) | payer MEDICARE, MEDICAID | LOC: COL.RAD 08:03 | DX: Z01.89 Encounter for other specified special examinations (principal) ==

== ENCOUNTER → 2017-05-11 | Outpatient (CLI) | payer MEDICARE, MEDICAID | LOC: COL.RAD 07:26 | DX: Z01.89 Encounter for other specified special examinations (principal) ==

== ENCOUNTER → 2017-05-20 | Outpatient (CLI) | payer MEDICARE, MEDICAID | LOC: MC.RAD 04-23 10:20 | DX: N63.21 Unspecified lump in the left breast, upper outer quadrant (principal) ==

== ENCOUNTER 2017-08-21 16:39 | Emergency (ER) | payer MEDICARE, MEDICAID ==
[~2017-08-21] VITALS: Ht 154.9 cm; Wt 102.7 kg
[2017-08-21 16:41] VITALS: TEMP 98.9
[2017-08-21 18:01] LABS: BASO # 0.1 (0.0-0.2); BASO % 0.4 % (0.0-2.0); EOS # 0.1 (0.0-0.7); EOS % 0.9 % (0-4.0); GRAN % 70.4 % (42.2-75.2); HEMOGLOBIN 11.2 g/dl (12.5-16.0); LYMPH # 2.6 (1.2-3.4); LYMPH % 22.6 % (20.0-51.0); MEAN CELL VOLUME 79 fl (80.0-100.0); MEAN CORPUSCULAR HEMOGLOBIN 27 pg (27.0-31.0); MEAN CORPUSCULAR HGB CONC 34 g/dl (33.0-37.0); MEAN PLATELET VOLUME 9.8 fl (7.4-10.4); MONO # 0.5 (0.1-0.6); MONO % 4.5 % (1.7-9.3); PLATELET COUNT 144 K/mm3 (130-400); RED BLOOD COUNT 4.23 M/mm3 (4.10-5.30); REDCELL DISTRIBUTION WIDTH-CV 15.5 % (11.5-14.5)
[2017-08-21 18:04] LABS: HEMATOCRIT 33.4 % (37.0-47.0)
[2017-08-21 18:14] LABS: ALANINE AMINOTRANSFERASE 37 U/L (9-52); ALBUMIN 3.8 gm/dL (3.5-5.0); ALKALINE PHOSPHATASE 233 U/L (50-136); ANION GAP 13 mmol/L (7-16); AST,SGOT 50 U/L (15-37); BILIRUBIN,TOTAL 0.2 mg/dL (0.0-1.0); BLOOD UREA NITROGEN 12 mg/dL (7-17); C-REACTIVE PROTEIN 3.3 mg/dL (0.0-0.9); CALCIUM 9.2 mg/dL (8.4-10.2); CARBON DIOXIDE 22 mmol/L (22-30); CHLORIDE 103 mmol/L (98-107); CREATININE, serum 0.56 mg/dL (0.52-1.25); GLUCOSE 256 mg/dL (74-106); POTASSIUM 3.6 mmol/L (3.4-5.0); SODIUM 138 mmol/L (137-145); TOTAL PROTEIN 7.2 gm/dL (6.4-8.2)
[2017-08-21 18:18] LABS: ACETONE,SERUM NEGATIVE
[2017-08-21 18:25] LABS: TROPONIN-I < 0.012 ng/mL (0.000-0.034)
[2017-08-21 18:27] LABS: COLLECTION METHOD CLEAN CATCH
[2017-08-21 18:37] LABS: MUCOUS Present /lpf; PH 5 (5-8); URINE APPEARANCE Hazy; URINE BACTERIA None Seen /hpf; URINE BILIRUBIN Negative (NEGATIVE); URINE BLOOD Negative (NEGATIVE); URINE COLOR Yellow; URINE GLUCOSE 3+ (NEGATIVE); URINE KETONE Negative (NEGATIVE); URINE LEUKOCYTE ESTERASE Negative (NEGATIVE); URINE NITRATE Negative (NEGATIVE); URINE PROTEIN(semi-quant) Negative (NEGATIVE); URINE RBC 0-2 /hpf; URINE UROBILINOGEN Negative (NEGATIVE)
[2017-08-21 20:45] VITALS: BP 126/64; PULSE 71
== END 2017-08-21 20:45 | disposition home or self-care (01) ==
LOC: COL.ER 16:39
PROVIDERS: Emergency Medicine
DX: E11.9 Type 2 diabetes mellitus without complications (principal); R07.9 Chest pain, unspecified; G89.29 Other chronic pain; Z79.4 Long term (current) use of insulin; Z79.82 Long term (current) use of aspirin
CPT/HCPCS: J1170; J1815; J2405; J7030

== ENCOUNTER 2018-03-21 16:35 | Emergency (ER) | payer MEDICARE ==
[~2018-03-21] VITALS: Ht 154.9 cm; Wt 104.5 kg
[2018-03-21 16:44] VITALS: TEMP 99.2
[2018-03-21] MEDS ORDERED: GEODON 20 MG20 MG (17:35)
[2018-03-21] MEDS ORDERED: BREO IH (17:35)
[2018-03-21 17:38] LABS: COLLECTION METHOD CLEAN CATCH
[2018-03-21 17:41] LABS: BASO % 0.4 % (0.0-2.0); EOS # 0.1 (0.0-0.7); EOS % 1.1 % (0-4.0); GRAN # 7.6 (1.4-6.5); GRAN % 71.3 % (42.2-75.2); HEMOGLOBIN 10.9 g/dl (12.5-16.0); LYMPH # 2.2 (1.2-3.4); LYMPH % 20.6 % (20.0-51.0); MEAN CELL VOLUME 84 fl (80.0-100.0); MEAN CORPUSCULAR HEMOGLOBIN 28 pg (27.0-31.0); MEAN CORPUSCULAR HGB CONC 33 g/dl (33.0-37.0); MEAN PLATELET VOLUME 9.8 fl (7.4-10.4); MONO # 0.6 (0.1-0.6); MONO % 5.8 % (1.7-9.3); PLATELET COUNT 145 K/mm3 (130-400); RED BLOOD COUNT 3.97 M/mm3 (4.10-5.30); REDCELL DISTRIBUTION WIDTH-CV 15.6 % (11.5-14.5)
[2018-03-21 17:52] LABS: BILIRUBIN,TOTAL 0.3 mg/dL (0.0-1.0); CALCIUM 8.7 mg/dL (8.4-10.2); CREATININE, serum 0.62 mg/dL (0.52-1.25); POTASSIUM 4.3 mmol/L (3.4-5.0); TOTAL PROTEIN 7.4 gm/dL (6.4-8.2)
[2018-03-21 17:58] LABS: HEMATOCRIT 33.5 % (37.0-47.0)
[2018-03-21 18:06] LABS: PH 6 (5-8); URINE APPEARANCE Cloudy; URINE BACTERIA None Seen /hpf; URINE BILIRUBIN Negative (NEGATIVE); URINE BLOOD 1+ (NEGATIVE); URINE COLOR Yellow; URINE GLUCOSE 3+ (NEGATIVE); URINE KETONE Negative (NEGATIVE); URINE LEUKOCYTE ESTERASE 3+ (NEGATIVE); URINE NITRATE Negative (NEGATIVE); URINE PROTEIN(semi-quant) 1+ (NEGATIVE); URINE RBC 20-50 /hpf; URINE UROBILINOGEN Negative (NEGATIVE); URINE WBC >50 /hpf
[2018-03-21] MEDS ORDERED: OMNICEF 300MG300 MG PO (19:58)
[2018-03-21 20:04] VITALS: BP 147/80; PULSE 82
== END 2018-03-21 20:12 | disposition home or self-care (01) ==
LOC: COL.ER 16:35
PROVIDERS: Emergency Medicine
DX: N39.0 Urinary tract infection, site not specified (principal); E10.43 Type 1 diabetes mellitus with diabetic autonomic (poly)neuropathy; K31.84 Gastroparesis; E03.9 Hypothyroidism, unspecified; I10 Essential (primary) hypertension; Z79.82 Long term (current) use of aspirin; Z79.51 Long term (current) use of inhaled steroids
CPT/HCPCS: J0696; J1630; J2270

== ENCOUNTER 2018-05-21 19:27 | Emergency (ER) | payer MEDICARE ==
[~2018-05-21] VITALS: Ht 154.9 cm; Wt 100.0 kg
[~2018-05-21 19:27] MED LIST changes: +BREO IH; +GEODON 20 MG20 MG; +OMNICEF 300MG300 MG PO
[2018-05-21 19:43] VITALS: TEMP 98.5
[2018-05-21 20:38] LABS: BASO % 0.3 % (0.0-2.0); EOS # 0.1 (0.0-0.7); GRAN # 8.1 (1.4-6.5); GRAN % 68.5 % (42.2-75.2); LYMPH # 2.9 (1.2-3.4); LYMPH % 24.1 % (20.0-51.0); MEAN CELL VOLUME 82 fl (80.0-100.0); MEAN CORPUSCULAR HEMOGLOBIN 27 pg (27.0-31.0); MEAN CORPUSCULAR HGB CONC 33 g/dl (33.0-37.0); MEAN PLATELET VOLUME 9.3 fl (7.4-10.4); MONO # 0.6 (0.1-0.6); MONO % 5.4 % (1.7-9.3); PLATELET COUNT 136 K/mm3 (130-400); RED BLOOD COUNT 4.45 M/mm3 (4.10-5.30)
[2018-05-21 20:48] LABS: ALANINE AMINOTRANSFERASE 9 U/L (9-52); ALBUMIN 3.9 gm/dL (3.5-5.0); ALKALINE PHOSPHATASE 208 U/L (50-136); ANION GAP 10 mmol/L (7-16); AST,SGOT 37 U/L (15-37); BILIRUBIN,TOTAL 0.3 mg/dL (0.0-1.0); BLOOD UREA NITROGEN 12 mg/dL (7-17); CALCIUM 8.9 mg/dL (8.4-10.2); CARBON DIOXIDE 26 mmol/L (22-30); CHLORIDE 102 mmol/L (98-107); CREATININE, serum 0.57 mg/dL (0.52-1.25); GLUCOSE 352 mg/dL (74-106); POTASSIUM 4.1 mmol/L (3.4-5.0); SODIUM 137 mmol/L (137-145); TOTAL PROTEIN 7.1 gm/dL (6.4-8.2)
[2018-05-21 20:53] LABS: HEMATOCRIT 36.6 % (37.0-47.0)
[2018-05-21 21:12] LABS: COLLECTION METHOD CLEAN CATCH
[2018-05-21 21:22] LABS: MUCOUS Present /lpf; PH 8 (5-8); URINE APPEARANCE Hazy; URINE BACTERIA None Seen /hpf; URINE BILIRUBIN Negative (NEGATIVE); URINE BLOOD 2+ (NEGATIVE); URINE COLOR Yellow; URINE GLUCOSE 3+ (NEGATIVE); URINE KETONE Negative (NEGATIVE); URINE LEUKOCYTE ESTERASE 3+ (NEGATIVE); URINE NITRATE Negative (NEGATIVE); URINE PROTEIN(semi-quant) Negative (NEGATIVE); URINE RBC >50 /hpf; URINE UROBILINOGEN Negative (NEGATIVE)
[2018-05-21 21:28] LABS: ACETONE,SERUM NEGATIVE
[2018-05-21] MEDS ORDERED: CEPHALEXIN500 M1 PO (23:44)
[2018-05-21] MEDS ORDERED: PHENERGAN 25 TA25 MG PO (23:44)
[2018-05-21 23:55] VITALS: BP 139/82; PULSE 85
== END 2018-05-21 23:57 | disposition home or self-care (01) ==
LOC: COL.ER 19:27
PROVIDERS: Emergency Medicine
DX: E11.65 Type 2 diabetes mellitus with hyperglycemia (principal); N39.0 Urinary tract infection, site not specified; Z79.82 Long term (current) use of aspirin; Z79.4 Long term (current) use of insulin
CPT/HCPCS: J0780; J1170; J1815; J7030

== ENCOUNTER 2018-05-28 17:28 | Emergency (ER) | payer MEDICARE ==
[~2018-05-28] VITALS: Ht 154.9 cm; Wt 100.0 kg
[~2018-05-28 17:28] MED LIST changes: +CEPHALEXIN500 M1 PO
[2018-05-28 17:38] VITALS: TEMP 98.7
[2018-05-28 18:05] LABS: COLLECTION METHOD CLEAN CATCH
[2018-05-28 18:16] LABS: MUCOUS Present /lpf; PH 5 (5-8); SQUAMOUS EPITHELIAL 20-50 /hpf; URINE APPEARANCE Cloudy; URINE BACTERIA Rare /hpf; URINE BILIRUBIN Negative (NEGATIVE); URINE BLOOD Negative (NEGATIVE); URINE COLOR Yellow; URINE GLUCOSE Negative (NEGATIVE); URINE KETONE Negative (NEGATIVE); URINE LEUKOCYTE ESTERASE 3+ (NEGATIVE); URINE NITRATE Negative (NEGATIVE); URINE PROTEIN(semi-quant) Negative (NEGATIVE); URINE RBC 20-50 /hpf; URINE UROBILINOGEN Negative (NEGATIVE)
[2018-05-28 19:25] LABS: BASO % 0.3 % (0.0-2.0); EOS # 0.1 (0.0-0.7); GRAN # 7.9 (1.4-6.5); GRAN % 67.4 % (42.2-75.2); HEMOGLOBIN 11.6 g/dl (12.5-16.0); LYMPH # 3.1 (1.2-3.4); LYMPH % 26.4 % (20.0-51.0); MEAN CELL VOLUME 82 fl (80.0-100.0); MEAN CORPUSCULAR HEMOGLOBIN 27 pg (27.0-31.0); MEAN CORPUSCULAR HGB CONC 33 g/dl (33.0-37.0); MEAN PLATELET VOLUME 9.5 fl (7.4-10.4); MONO # 0.5 (0.1-0.6); MONO % 4.2 % (1.7-9.3); PLATELET COUNT 145 K/mm3 (130-400); RED BLOOD COUNT 4.28 M/mm3 (4.10-5.30); REDCELL DISTRIBUTION WIDTH-CV 14.9 % (11.5-14.5)
[2018-05-28 19:35] LABS: ALBUMIN 3.8 gm/dL (3.5-5.0); BILIRUBIN,TOTAL 0.3 mg/dL (0.0-1.0); CALCIUM 8.6 mg/dL (8.4-10.2); CREATININE, serum 0.53 (0.52-1.25); POTASSIUM 3.9 mmol/L (3.4-5.0)
[2018-05-28 19:39] LABS: COLLECTION METHOD CATHETER
[2018-05-28 19:50] LABS: MUCOUS Present /lpf; PH 6 (5-8); SQUAMOUS EPITHELIAL 0-2 /hpf; URINE APPEARANCE Clear; URINE BACTERIA None Seen /hpf; URINE BILIRUBIN Negative (NEGATIVE); URINE BLOOD Negative (NEGATIVE); URINE COLOR Yellow; URINE GLUCOSE 1+ (NEGATIVE); URINE KETONE Negative (NEGATIVE); URINE LEUKOCYTE ESTERASE Negative (NEGATIVE); URINE NITRATE Negative (NEGATIVE); URINE PROTEIN(semi-quant) Negative (NEGATIVE); URINE RBC 0-2 /hpf; URINE UROBILINOGEN Negative (NEGATIVE)
[2018-05-28] MEDS ORDERED: PERCOCET 325 MG1 TA2 PO (22:03)
[2018-05-28] MEDS ORDERED: FLAGYL500 MG PO (22:05)
[2018-05-28 22:35] VITALS: BP 108/48; PULSE 65
== END 2018-05-28 22:40 | disposition home or self-care (01) ==
LOC: COL.ER 17:28
PROVIDERS: Emergency Medicine
DX: N76.0 Acute vaginitis (principal); B96.89 Other specified bacterial agents as the cause of diseases classified elsewhere; E11.9 Type 2 diabetes mellitus without complications; Z90.710 Acquired absence of both cervix and uterus; Z90.49 Acquired absence of other specified parts of digestive tract; Z90.89 Acquired absence of other organs; Z87.442 Personal history of urinary calculi; Z79.82 Long term (current) use of aspirin; Z79.4 Long term (current) use of insulin
CPT/HCPCS: J1170; J1200; J1630; J2405; J2550; J7030

== ENCOUNTER 2018-06-06 00:27 | Emergency (ER) | payer MEDICARE ==
[~2018-06-06] VITALS: Ht 154.9 cm; Wt 100.0 kg
[~2018-06-06 00:27] MED LIST changes: +PERCOCET 325 MG1 TA2 PO
[2018-06-06 00:33] VITALS: TEMP 98.5
[2018-06-06] MEDS ORDERED: FLEXERIL 1010 MG/TAB PO (02:33)
[2018-06-06 02:54] VITALS: BP 132/80; PULSE 70
== END 2018-06-06 03:00 | disposition home or self-care (01) ==
LOC: COL.ER 00:27
DX: S09.90XA Unspecified injury of head, initial encounter (principal); S16.1XXA Strain of muscle, fascia and tendon at neck level, initial encounter; E10.9 Type 1 diabetes mellitus without complications; I10 Essential (primary) hypertension; F31.9 Bipolar disorder, unspecified; Z79.82 Long term (current) use of aspirin; W19.XXXA Unspecified fall, initial encounter; Y92.009 Unspecified place in unspecified non-institutional (private) residence as the place of occurrence of the external cause
CPT/HCPCS: J2270; J2550

== ENCOUNTER 2018-06-07 18:46 | Emergency (ER) | payer MEDICARE ==
[~2018-06-07] VITALS: Ht 154.9 cm; Wt 100.0 kg
[2018-06-07 18:52] VITALS: TEMP 99.2
[2018-06-07 21:53] LABS: COLLECTION METHOD CATHETER
[2018-06-07 22:05] LABS: MUCOUS Present /lpf; PH 7 (5-8); SQUAMOUS EPITHELIAL 20-50 /hpf; URINE APPEARANCE Cloudy; URINE BACTERIA Rare /hpf; URINE BILIRUBIN Negative (NEGATIVE); URINE BLOOD Negative (NEGATIVE); URINE COLOR Yellow; URINE GLUCOSE Negative (NEGATIVE); URINE KETONE Negative (NEGATIVE); URINE LEUKOCYTE ESTERASE 3+ (NEGATIVE); URINE NITRATE Negative (NEGATIVE); URINE PROTEIN(semi-quant) Negative (NEGATIVE); URINE UROBILINOGEN Negative (NEGATIVE)
[2018-06-07 23:05] VITALS: BP 118/68; PULSE 65
== END 2018-06-07 23:07 | disposition home or self-care (01) ==
LOC: COL.ER 18:46
PROVIDERS: Emergency Medicine
DX: R10.9 Unspecified abdominal pain (principal); G89.29 Other chronic pain; E78.5 Hyperlipidemia, unspecified; E03.9 Hypothyroidism, unspecified; I10 Essential (primary) hypertension; E11.9 Type 2 diabetes mellitus without complications; F31.9 Bipolar disorder, unspecified; E11.40 Type 2 diabetes mellitus with diabetic neuropathy, unspecified; Z90.710 Acquired absence of both cervix and uterus; Z90.89 Acquired absence of other organs; Z79.4 Long term (current) use of insulin; Z79.82 Long term (current) use of aspirin

== ENCOUNTER 2018-07-23 18:47 | Emergency (ER) | payer MEDICARE ==
[~2018-07-23] VITALS: Ht 154.9 cm; Wt 100.0 kg
[2018-07-23 18:56] VITALS: TEMP 98.6
[2018-07-23] MEDS ORDERED: ANUSOL-HC SUPPO25 MG RC (19:52)
[2018-07-23 20:39] VITALS: BP 168/79; PULSE 64
== END 2018-07-23 20:39 | disposition home or self-care (01) ==
LOC: COL.ER 18:47
DX: K60.2 Anal fissure, unspecified (principal); E11.43 Type 2 diabetes mellitus with diabetic autonomic (poly)neuropathy; K31.84 Gastroparesis; Z87.442 Personal history of urinary calculi; Z90.710 Acquired absence of both cervix and uterus; Z90.49 Acquired absence of other specified parts of digestive tract; Z79.82 Long term (current) use of aspirin; Z79.4 Long term (current) use of insulin; Z79.51 Long term (current) use of inhaled steroids
CPT/HCPCS: J1170; J2405

== ENCOUNTER 2019-01-15 17:48 | Emergency (ER) | payer MEDICARE ==
[~2019-01-15] VITALS: Ht 154.9 cm; Wt 104.5 kg
[~2019-01-15 17:48] MED LIST changes: +ANUSOL-HC SUPPO25 MG RC
[2019-01-15 18:11] VITALS: BP 188/77; TEMP 98.1
[2019-01-15 20:28] VITALS: PULSE 62
== END 2019-01-15 20:28 | disposition home or self-care (01) ==
LOC: COL.ER 17:48
DX: S92.351A Displaced fracture of fifth metatarsal bone, right foot, initial encounter for closed fracture (principal); F31.9 Bipolar disorder, unspecified; F41.9 Anxiety disorder, unspecified; K21.9 Gastro-esophageal reflux disease without esophagitis; E03.9 Hypothyroidism, unspecified; I10 Essential (primary) hypertension; E11.9 Type 2 diabetes mellitus without complications; Z79.4 Long term (current) use of insulin; Z79.51 Long term (current) use of inhaled steroids; Z79.82 Long term (current) use of aspirin; Y92.009 Unspecified place in unspecified non-institutional (private) residence as the place of occurrence of the external cause

== ENCOUNTER 2019-02-01 18:15 | Emergency (ER) | payer MEDICARE ==
[~2019-02-01] VITALS: Ht 154.9 cm; Wt 102.7 kg
[2019-02-01 19:15] LABS: COLLECTION METHOD CLEAN CATCH
[2019-02-01 19:18] LABS: BASO % 0.3 % (0.0-2.0); EOS # 0.1 (0.0-0.7); EOS % 0.9 % (0-4.0); GRAN # 9.1 (1.4-6.5); GRAN % 71.4 % (42.2-75.2); HEMOGLOBIN 11.2 g/dl (12.5-16.0); LYMPH # 2.8 (1.2-3.4); LYMPH % 21.8 % (20.0-51.0); MEAN CELL VOLUME 83 fl (80.0-100.0); MEAN CORPUSCULAR HEMOGLOBIN 28 pg (27.0-31.0); MEAN CORPUSCULAR HGB CONC 33 g/dl (33.0-37.0); MEAN PLATELET VOLUME 9.2 fl (7.4-10.4); MONO # 0.6 (0.1-0.6); MONO % 4.6 % (1.7-9.3); PLATELET COUNT 158 K/mm3 (130-400); RED BLOOD COUNT 4.07 M/mm3 (4.10-5.30); REDCELL DISTRIBUTION WIDTH-CV 14.3 % (11.5-14.5)
[2019-02-01 19:19] LABS: HEMATOCRIT 33.6 % (37.0-47.0)
[2019-02-01 19:22] LABS: PH 6 (5-8); URINE APPEARANCE Hazy; URINE BACTERIA None Seen /hpf; URINE BILIRUBIN Negative (NEGATIVE); URINE BLOOD Negative (NEGATIVE); URINE COLOR Yellow; URINE GLUCOSE 3+ (NEGATIVE); URINE KETONE Negative (NEGATIVE); URINE LEUKOCYTE ESTERASE Negative (NEGATIVE); URINE NITRATE Negative (NEGATIVE); URINE PROTEIN(semi-quant) Negative (NEGATIVE); URINE RBC 0-2 /hpf; URINE UROBILINOGEN Negative (NEGATIVE)
[2019-02-01 19:29] LABS: ALANINE AMINOTRANSFERASE 19 U/L (9-52); ALBUMIN 4.1 gm/dL (3.5-5.0); ALKALINE PHOSPHATASE 238 U/L (50-136); ANION GAP 10 mmol/L (7-16); AST,SGOT 25 U/L (15-37); BILIRUBIN,TOTAL 0.2 mg/dL (0.0-1.0); BLOOD UREA NITROGEN 12 mg/dL (7-17); CARBON DIOXIDE 29 mmol/L (22-30); CHLORIDE 98 mmol/L (98-107); CREATININE, serum 0.59 (0.52-1.25); GLUCOSE 312 mg/dL (74-106); POTASSIUM 3.8 mmol/L (3.4-5.0); SODIUM 136 mmol/L (137-145); TOTAL PROTEIN 7.1 gm/dL (6.4-8.2)
[2019-02-01 19:33] LABS: ACETAMINOPHEN < 10 ug/mL (10-30); ALCOHOL(ethanol),MEDICAL < 10 mg/dL; SALICYLATE < 1.0 mg/dL
[2019-02-01 19:34] LABS: TRICYCLIC ANTIDEPRESS URINE NEGATIVE
[2019-02-02 05:07] VITALS: BP 156/86; PULSE 83; TEMP 97.5
== END 2019-02-02 05:11 ==
LOC: COL.ER 18:15
PROVIDERS: Emergency Medicine
DX: R45.851 Suicidal ideations (principal); F31.9 Bipolar disorder, unspecified; F43.10 Post-traumatic stress disorder, unspecified; F41.9 Anxiety disorder, unspecified; Z79.4 Long term (current) use of insulin

== ENCOUNTER 2019-02-07 17:37 | Emergency (ER) | payer MEDICARE, MEDICAID ==
[~2019-02-07] VITALS: Ht 154.9 cm; Wt 102.7 kg
[2019-02-07 18:01] LABS: BASO % 0.4 % (0.0-2.0); EOS # 0.1 (0.0-0.7); EOS % 1.3 % (0-4.0); GRAN # 7.3 (1.4-6.5); GRAN % 69.4 % (42.2-75.2); LYMPH # 2.5 (1.2-3.4); LYMPH % 23.6 % (20.0-51.0); MEAN CELL VOLUME 84 fl (80.0-100.0); MEAN CORPUSCULAR HEMOGLOBIN 27 pg (27.0-31.0); MEAN CORPUSCULAR HGB CONC 32 g/dl (33.0-37.0); MONO # 0.5 (0.1-0.6); MONO % 4.3 % (1.7-9.3); PLATELET COUNT 136 K/mm3 (130-400); RED BLOOD COUNT 4.04 M/mm3 (4.10-5.30); REDCELL DISTRIBUTION WIDTH-CV 14.5 % (11.5-14.5)
[2019-02-07 18:06] LABS: PROTHROMBIN TIME 11.3 SECONDS (9.7-12.8)
[2019-02-07 18:09] LABS: HEMATOCRIT 33.9 % (37.0-47.0); PARTIAL THROMBOPLASTIN TIME 19.2 SECONDS (26.0-37.0)
[2019-02-07 18:12] LABS: D-DIMER < 200.00 ng/mLDDu (200-230)
[2019-02-07 18:14] LABS: ALANINE AMINOTRANSFERASE 19 U/L (9-52); ALBUMIN 4.2 gm/dL (3.5-5.0); ALKALINE PHOSPHATASE 227 U/L (50-136); ANION GAP 11 mmol/L (7-16); AST,SGOT 33 U/L (15-37); BILIRUBIN,TOTAL 0.2 mg/dL (0.0-1.0); BLOOD UREA NITROGEN 11 mg/dL (7-17); C-REACTIVE PROTEIN 2.2 mg/dL (0.0-0.9); CALCIUM 9.1 mg/dL (8.4-10.2); CARBON DIOXIDE 28 mmol/L (22-30); CHLORIDE 99 mmol/L (98-107); CREATININE, serum 0.61 (0.52-1.25); GLUCOSE 220 mg/dL (74-106); LIPASE 69 U/L (23-300); POTASSIUM 3.8 mmol/L (3.4-5.0); SODIUM 138 mmol/L (137-145); TOTAL PROTEIN 7.3 gm/dL (6.4-8.2)
[2019-02-07 18:23] LABS: TROPONIN-I < 0.012 ng/mL (0.000-0.035)
[2019-02-07 21:40] VITALS: BP 115/71; PULSE 75; TEMP 98.2
== END 2019-02-07 21:45 | disposition home or self-care (01) ==
LOC: COL.ER 17:37
PROVIDERS: Emergency Medicine
DX: R07.89 Other chest pain (principal); E78.5 Hyperlipidemia, unspecified; I10 Essential (primary) hypertension; E11.9 Type 2 diabetes mellitus without complications; Z79.4 Long term (current) use of insulin; Z79.51 Long term (current) use of inhaled steroids
CPT/HCPCS: J2405

== ENCOUNTER 2019-02-22 18:47 | Inpatient (IN) | payer MEDICARE, MEDICAID ==
[~2019-02-22] VITALS: Ht 154.9 cm; Wt 106.5 kg
[2019-02-22 20:54] LABS: BASO % 0.2 % (0.0-2.0); EOS # 0.1 (0.0-0.7); EOS % 0.6 % (0-4.0); GRAN # 8.3 (1.4-6.5); GRAN % 62.8 % (42.2-75.2); LYMPH # 4.1 (1.2-3.4); LYMPH % 30.6 % (20.0-51.0); MEAN CELL VOLUME 82 fl (80.0-100.0); MEAN CORPUSCULAR HEMOGLOBIN 27 pg (27.0-31.0); MEAN CORPUSCULAR HGB CONC 33 g/dl (33.0-37.0); MEAN PLATELET VOLUME 9.4 fl (7.4-10.4); MONO # 0.6 (0.1-0.6); MONO % 4.7 % (1.7-9.3); PLATELET COUNT 156 K/mm3 (130-400); RED BLOOD COUNT 4.42 M/mm3 (4.10-5.30); REDCELL DISTRIBUTION WIDTH-CV 14.6 % (11.5-14.5)
[2019-02-22 20:55] LABS: HEMATOCRIT 36.2 % (37.0-47.0)
[2019-02-22 21:07] LABS: ALBUMIN 4.4 gm/dL (3.5-5.0); BILIRUBIN,TOTAL 0.5 mg/dL (0.0-1.0); C-REACTIVE PROTEIN 2.8 mg/dL (0.0-0.9); CALCIUM 9.2 mg/dL (8.4-10.2); CREATININE, serum 0.56 (0.52-1.25); POTASSIUM 4.4 mmol/L (3.4-5.0); TOTAL PROTEIN 7.8 gm/dL (6.4-8.2)
[2019-02-22 21:43] LABS: TROPONIN-I < 0.012 ng/mL (0.000-0.035)
[2019-02-22] MEDS ORDERED: COZAAR 25MG25 MG/TAB PO (21:58)
[2019-02-22] MEDS ORDERED: GEODON80 MG PO (21:58)
[2019-02-22] MEDS ORDERED: LASIX 20MG TABL20 MG PO (21:59)
[2019-02-22] MEDS ORDERED: VENTOLIN0.09 MG IH (22:00)
[2019-02-22] MEDS ORDERED: ATARAX50 MG PO (22:00)
[2019-02-22] MEDS ORDERED: LEVEMIR100 U/ML SQ (22:01)
[2019-02-22] MEDS ORDERED: HUMULIN R 10100 U/ML SQ (22:01)
[2019-02-22 22:31] LABS: COLLECTION METHOD CLEAN CATCH
[2019-02-22 22:40] LABS: MUCOUS Present /lpf; PH 6 (5-8); URINE APPEARANCE Hazy; URINE BACTERIA Rare /hpf; URINE BILIRUBIN Negative (NEGATIVE); URINE BLOOD Negative (NEGATIVE); URINE COLOR Straw; URINE GLUCOSE 3+ (NEGATIVE); URINE KETONE Trace (NEGATIVE); URINE LEUKOCYTE ESTERASE 1+ (NEGATIVE); URINE NITRATE Negative (NEGATIVE); URINE PROTEIN(semi-quant) Negative (NEGATIVE); URINE UROBILINOGEN Negative (NEGATIVE)
[2019-02-23] VITALS (9 sets, daily range): BP systolic 126–150; BP diastolic 46–69; PULSE 74–95; TEMP 97.6–98.5
--- NOTE | 2019-02-23 00:55 | NUR ---
Arrived to medical floor. Assessment complete. Lungs clear. Heart sounds normal. Bowels active x4. Pulses strong throughout. No edema noted at this time. Heels and feet dry and cracked bilaterally. Patient reports chest tightness from coughing and right foot pain. Requested PRN breathing tx. Respiratory notified. Would like order for dilaudid. right forearm/elbow infusing without complications. Patient answered yes to all suicidal questions. Had recent attempt where flexeril was taken in goal to overdose. Reports admitted to [facility]. Sitter in place. Suicide precautions in place. Davison gown on. Patient orientated to medical floor and reason for suicide precautions. Voiced understanding. Denies other questions at this time.
[2019-02-23] MEDS ORDERED: MINIPRESS 5M5 MG/CAP PO (01:18)
--- NOTE | 2019-02-23 01:39 | NUR ---
Dr. Ugalde notified of patient arrival to medical floor. Notified of broken foot, suicide attempt, pain control, and need for nightly medications. Reviewed medications with Dr. Ugalde, continued medications for HS. Received order for IV dilaudid 0.25mg IV Q4H PRN. Patient home trazodone 250mg to be continued as PRN only. Orders added.
--- NOTE | 2019-02-23 01:50 | NUR ---
Rates foot pain 8/10 in right foot. Provided with PRN dilaudid at this time.
--- NOTE | 2019-02-23 01:55 | NUR ---
Arrived to medical floor. Assessment complete. Lungs clear. Heart sounds normal. Bowels active x4. Pulses strong throughout. No edema noted at this time. Heels and feet dry and cracked bilaterally. Patient reports chest tightness from coughing and right foot pain. Would like order for dilaudid. IV right forearm/elbow infusing without complications. Patient answered yes to all suicidal questions. Had recent attempt where flexeril was taken in goal to overdose. Reports admitted to [facility]. Sitter in place. Suicide precautions in place. Davison gown on. Patient orientated to medical floor and reason for suicide precautions. Voiced understanding. Denies other questions at this time.
--- NOTE | 2019-02-23 02:45 | NUR ---
Reports nausea. Order received from Dr. Ugalde for zofran 4mg Q6H PRN
--- NOTE | 2019-02-23 04:09 | NUR ---
Patient blood sugars ordered Q4H, novolog ordered ACHS. Last blood sugar 382. Contacted Dr. Ugalde to ask if he would like insulin given now or to wait til 0800. Per Dr. Ugalde delay til 0800.
--- NOTE | 2019-02-23 05:54 | NUR ---
Reports 10/08 right foot pain/chest (patient reports from coughing). Provided with PRN dilaudid at this time.
--- NOTE | 2019-02-23 06:26 | NUR ---
Patient received x2 doses of dilaudid for pain and x1 dose of zofran for nausea. Otherwise uneventful night. Patient remained 1:1 observation throughout night. Resting in bed this AM. Denies needs.
--- NOTE | 2019-02-23 07:31 | NUR ---
Report given to SUSHIL Obregon
--- NOTE | 2019-02-23 08:32 | NUR ---
Patient resting in bed at this time. She is alert and oriented x 3. When questioned patient states that she has thoughts of suicide and has a plan. Reports if she was discharged today that she would act on that plan. That is why she will be discharging to the crisis center per her report. Patient has sitter at this time. Skin w/d. Color pale pink. Lungs disminshed in the bases. Clear in the upper lobes. Resp even unlabored. 02 on at 2l/nc. Patient reports coughing up green sputum but no cough/sputum noted by this nurse. Abd soft with bowel sounds x 4 quads. Patient states her pain is 8/10 in her right ankle. She states that she needs pain medication. MD will be notified of pain medication needs and the blood sugar at 411.
--- NOTE | 2019-02-23 10:45 | NUR ---
C/O pain 10/08 in foot requesting IV pain medication and Zofran. Medication given as per order. Lab here and unable to get labs drawn after the 3rd tech. Spoke with . Radha draw lab from foot. Lab made aware
--- NOTE | 2019-02-23 11:02 | NUR ---
Lab continues to not be able to get lab draw. made aware.
--- NOTE | 2019-02-23 11:48 | NUR ---
SaO2 below 90% on room air. 02 reapplied at 1 via NC. RT notified.
[2019-02-23 13:14] LABS: BASO % 0.2 % (0.0-2.0); EOS % 0.1 % (0-4.0); GRAN # 12.8 (1.4-6.5); HEMATOCRIT 35.1 % (37.0-47.0); HEMOGLOBIN 11.6 g/dl (12.5-16.0); LYMPH # 2.7 (1.2-3.4); LYMPH % 15.9 % (20.0-51.0); MEAN CELL VOLUME 82 fl (80.0-100.0); MEAN CORPUSCULAR HEMOGLOBIN 27 pg (27.0-31.0); MEAN CORPUSCULAR HGB CONC 33 g/dl (33.0-37.0); MEAN PLATELET VOLUME 9.5 fl (7.4-10.4); MONO # 0.9 (0.1-0.6); MONO % 5.5 % (1.7-9.3); PLATELET COUNT 189 K/mm3 (130-400); RED BLOOD COUNT 4.26 M/mm3 (4.10-5.30); REDCELL DISTRIBUTION WIDTH-CV 14.8 % (11.5-14.5)
[2019-02-23 13:35] LABS: ALBUMIN 4.4 gm/dL (3.5-5.0); BILIRUBIN UNCONJUGATED 0.2 mg/dL (0.0-1.1); BILIRUBIN,DIRECT 0.1 mg/dL (0.0-0.4); BILIRUBIN,TOTAL 0.3 mg/dL (0.0-1.0); CALCIUM 9.1 mg/dL (8.4-10.2); CREATININE, serum 0.46 (0.52-1.25); POTASSIUM 4.2 mmol/L (3.4-5.0); TOTAL PROTEIN 7.8 gm/dL (6.4-8.2)
--- NOTE | 2019-02-23 16:49 | NUR ---
DELANO met with the patient to discuss discharge plan. The patient lives alone in an apartment in [place]. She states that her mother, Samaria (ph#[phone]), also lives in [place] and is supportive. The patient was recently discharged from [facility] after an overdose. She has since been [facility] in [place] and plans to return back there upon discharge. SW contacted the [facility] and confirmed that the patient is able to return back there upon discharge. They state that they are able to provide transport. The patient reports independence with ADLs and has a walker. The patient's PCP is Dr. Florentin Castelan and she receives her medications at [facility]. She reports no difficulties obtaining her meds. The patient does not have advanced directives completed, but she was interested in obtaining a form for DPOA-HC. DELANO provided. SW to continue to follow.
--- NOTE | 2019-02-23 17:00 | NUR ---
Patient c/o pain in her foot. 9/10 on the pain scale. Given oral pain medications and patient requesting IV pain medications. Told patient that those were discontinued and oral medication had been started. Patient does not think that will work as well
--- NOTE | 2019-02-23 23:31 | NUR ---
ASSESSMENT COMPLETE. RESTING IN BED. DENIES NEEDS AT THIS TIME.
[2019-02-24] VITALS (11 sets, daily range): BP systolic 18–131; BP diastolic 52–60; PULSE 69–91; TEMP 97.3–98.2
[2019-02-24 08:55] LABS: BASO % 0.2 % (0.0-2.0); EOS # 0.1 (0.0-0.7); EOS % 0.7 % (0-4.0); GRAN # 6.5 (1.4-6.5); GRAN % 66.7 % (42.2-75.2); HEMOGLOBIN 10.2 g/dl (12.5-16.0); LYMPH # 2.5 (1.2-3.4); LYMPH % 25.7 % (20.0-51.0); MEAN CELL VOLUME 84 fl (80.0-100.0); MEAN CORPUSCULAR HEMOGLOBIN 27 pg (27.0-31.0); MEAN CORPUSCULAR HGB CONC 32 g/dl (33.0-37.0); MEAN PLATELET VOLUME 9.8 fl (7.4-10.4); MONO # 0.5 (0.1-0.6); MONO % 5.2 % (1.7-9.3); PLATELET COUNT 130 K/mm3 (130-400); RED BLOOD COUNT 3.75 M/mm3 (4.10-5.30)
[2019-02-24 09:04] LABS: HEMATOCRIT 31.6 % (37.0-47.0)
[2019-02-24 09:09] LABS: ALBUMIN 3.7 gm/dL (3.5-5.0); BILIRUBIN,TOTAL 0.1 mg/dL (0.0-1.0); CALCIUM 8.4 mg/dL (8.4-10.2); CREATININE, serum 0.48 (0.52-1.25); POTASSIUM 4.3 mmol/L (3.4-5.0); TOTAL PROTEIN 6.7 gm/dL (6.4-8.2)
[2019-02-24] MEDS ORDERED: BACTRIM DS 8001 TAB PO (13:42)
[2019-02-24] MEDS ORDERED: NORCO 325 MG-51 TAB PO (13:45)
--- NOTE | 2019-02-24 14:42 | NUR ---
The patient is to discharge today, 02/24, back to the [facility]. Transportation to be provided by the [facility]. DELANO contacted and faxed the patient's discharge orders to Pennie at the [facility]. The patient also completed a DPOA-HC. DELANO and community affairs manager, Shanae, witnessed the patient's signature. The patient was provided with the original and some copies. A copy was placed in the patient's chart. No additional needs at this time.
--- NOTE | 2019-02-24 16:15 | NUR ---
PATIENT DC TO [facility]. LEFT VIA THEIR TRANSPORTATION. PRINTED DC INSTRUCTIONS REVIEWED WITH PATIENT ALL QUESTIONS AND CONCERNS ANSWERED.
== END 2019-02-24 16:15 | DRG 871 ==
LOC: COL.ER 18:47 → MEDICAL 22:52
PROVIDERS: Emergency Medicine; Hospitalist; Physician Assistant; ADMIT Student in an Organized Health Care Education/Training Program
DX: A41.9 Sepsis, unspecified organism (principal); J96.21 Acute and chronic respiratory failure with hypoxia; N39.0 Urinary tract infection, site not specified; J20.9 Acute bronchitis, unspecified; I10 Essential (primary) hypertension; G40.909 Epilepsy, unspecified, not intractable, without status epilepticus; F41.9 Anxiety disorder, unspecified; F32.9 Major depressive disorder, single episode, unspecified; E11.65 Type 2 diabetes mellitus with hyperglycemia; E11.40 Type 2 diabetes mellitus with diabetic neuropathy, unspecified; G47.00 Insomnia, unspecified; F43.10 Post-traumatic stress disorder, unspecified; S92.901D Unspecified fracture of right foot, subsequent encounter for fracture with routine healing; X58.XXXD Exposure to other specified factors, subsequent encounter; E78.5 Hyperlipidemia, unspecified; K21.9 Gastro-esophageal reflux disease without esophagitis; E03.9 Hypothyroidism, unspecified; Z89.012 Acquired absence of left thumb; Z96.41 Presence of insulin pump (external) (internal); Z95.0 Presence of cardiac pacemaker; Z88.6 Allergy status to analgesic agent; Z88.8 Allergy status to other drugs, medicaments and biological substances
CPT/HCPCS: OP; 99222-AI; 99239; A4216; A9500; G0378; J0696; J1170; J1650; J1815; J2405; J2785; J7030; J7512; Q9967

== ENCOUNTER 2019-03-13 16:09 | Emergency (ER) | payer MEDICARE, MEDICAID ==
[~2019-03-13] VITALS: Ht 154.9 cm; Wt 107.3 kg
[~2019-03-13 16:09] MED LIST changes: +ATARAX50 MG PO; +BACTRIM DS 8001 TAB PO; +GEODON80 MG PO; +HUMULIN R 10100 U/ML SQ; +LEVEMIR100 U/ML SQ; +MINIPRESS 5M5 MG/CAP PO; +VENTOLIN0.09 MG IH
[2019-03-13 16:31] VITALS: TEMP 98.4
[2019-03-13 17:58] LABS: COLLECTION METHOD CLEAN CATCH
[2019-03-13 18:32] LABS: TRICYCLIC ANTIDEPRESS URINE NEGATIVE
[2019-03-13 18:43] LABS: MUCOUS Present /lpf; PH 7 (5-8); SQUAMOUS EPITHELIAL 20-50 /hpf; URINE APPEARANCE Cloudy; URINE BACTERIA None Seen /hpf; URINE BILIRUBIN Negative (NEGATIVE); URINE BLOOD Negative (NEGATIVE); URINE COLOR Yellow; URINE GLUCOSE Negative (NEGATIVE); URINE KETONE Negative (NEGATIVE); URINE LEUKOCYTE ESTERASE 1+ (NEGATIVE); URINE NITRATE Negative (NEGATIVE); URINE PROTEIN(semi-quant) 1+ (NEGATIVE); URINE RBC 0-2 /hpf; URINE UROBILINOGEN Negative (NEGATIVE)
[2019-03-13 19:02] LABS: HEMATOCRIT 37.2 % (37.0-47.0); MEAN CELL VOLUME 82 fl (80.0-100.0); MEAN CORPUSCULAR HEMOGLOBIN 27 pg (27.0-31.0); MEAN CORPUSCULAR HGB CONC 32 g/dl (33.0-37.0); MEAN PLATELET VOLUME 9.4 fl (7.4-10.4); PLATELET COUNT 162 K/mm3 (130-400); RED BLOOD COUNT 4.52 M/mm3 (4.10-5.30); REDCELL DISTRIBUTION WIDTH-CV 14.8 % (11.5-14.5)
[2019-03-13 19:18] LABS: ALANINE AMINOTRANSFERASE 20 U/L (9-52); ALBUMIN 4.6 gm/dL (3.5-5.0); ALKALINE PHOSPHATASE 267 U/L (50-136); ANION GAP 11 mmol/L (7-16); AST,SGOT 45 U/L (15-37); BILIRUBIN,TOTAL 0.4 mg/dL (0.0-1.0); BLOOD UREA NITROGEN 11 mg/dL (7-17); CALCIUM 9.3 mg/dL (8.4-10.2); CARBON DIOXIDE 33 mmol/L (22-30); CHLORIDE 96 mmol/L (98-107); CREATININE, serum 0.58 (0.52-1.25); GLUCOSE 102 mg/dL (74-106); POTASSIUM 3.8 mmol/L (3.4-5.0); SODIUM 140 mmol/L (137-145); TOTAL PROTEIN 8.2 gm/dL (6.4-8.2)
[2019-03-13 19:33] LABS: ACETAMINOPHEN < 10 ug/mL (10-30); ALCOHOL(ethanol),MEDICAL < 10 mg/dL; SALICYLATE < 1.0 mg/dL
[2019-03-13 21:20] LABS: BAND 1 % (0-10); EOSINOPHIL 2 % (0-4); LYMPHOCYTE 24 % (20.0-51.0); NEUTROPHILS 71 % (42.0-75.2)
[2019-03-13 21:21] LABS: MICROCYTOSIS 1+; PLATELET ESTIMATE NORMAL (NORMAL)
[2019-03-13] MEDS ORDERED: CEPHALEXIN500 M1 PO (22:15)
[2019-03-13 23:01] VITALS: BP 192/84; PULSE 105
== END 2019-03-13 23:01 | disposition home or self-care (01) ==
LOC: COL.ER 16:09
PROVIDERS: Emergency Medicine
DX: R45.851 Suicidal ideations (principal); F32.9 Major depressive disorder, single episode, unspecified; E10.43 Type 1 diabetes mellitus with diabetic autonomic (poly)neuropathy; K31.84 Gastroparesis; N39.0 Urinary tract infection, site not specified; Z79.51 Long term (current) use of inhaled steroids

== ENCOUNTER 2019-03-31 20:53 | Emergency (ER) | payer MEDICARE, MEDICAID ==
[~2019-03-31] VITALS: Ht 154.9 cm; Wt 109.0 kg
[2019-03-31 21:03] VITALS: BP 146/64; TEMP 98.3
[2019-03-31 23:19] LABS: COLLECTION METHOD CLEAN CATCH
[2019-03-31 23:29] LABS: MUCOUS Present /lpf; PH 5 (5-8); URINE APPEARANCE Hazy; URINE BACTERIA None Seen /hpf; URINE BILIRUBIN Negative (NEGATIVE); URINE BLOOD Negative (NEGATIVE); URINE COLOR Yellow; URINE GLUCOSE Negative (NEGATIVE); URINE KETONE Negative (NEGATIVE); URINE LEUKOCYTE ESTERASE Negative (NEGATIVE); URINE NITRATE Negative (NEGATIVE); URINE PROTEIN(semi-quant) Negative (NEGATIVE); URINE UROBILINOGEN Negative (NEGATIVE)
[2019-03-31] MEDS ORDERED: PYRIDIUM200 M1 PO (23:54)
[2019-04-01 00:31] VITALS: PULSE 81
== END 2019-04-01 00:34 | disposition home or self-care (01) ==
LOC: COL.ER 20:53
PROVIDERS: Emergency Medicine
DX: R30.0 Dysuria (principal); M25.571 Pain in right ankle and joints of right foot; E78.5 Hyperlipidemia, unspecified; I10 Essential (primary) hypertension; F31.9 Bipolar disorder, unspecified; E11.43 Type 2 diabetes mellitus with diabetic autonomic (poly)neuropathy; K31.84 Gastroparesis; Z90.89 Acquired absence of other organs; Z90.49 Acquired absence of other specified parts of digestive tract; Z79.51 Long term (current) use of inhaled steroids; Z79.4 Long term (current) use of insulin

== ENCOUNTER → 2019-04-23 | Outpatient (CLI) | payer MEDICARE, MEDICAID | LOC: ZCOL.LAB 11:47 → COL.LAB 11:47 | DX: J10.1 Influenza due to other identified influenza virus with other respiratory manifestations (principal) ==

== ENCOUNTER 2019-05-01 08:06 | Day surgery (SDC) | payer MEDICARE, MEDICAID ==
[~2019-05-01] VITALS: Ht 154.9 cm; Wt 107.3 kg
[2019-05-01 08:56] VITALS: BP 168/71; PULSE 76; TEMP 98
--- NOTE | 2019-05-01 09:09 | NUR ---
TO RM AT 0810- CALL LIGHT IN REACH ACCUCHECK 104 MOTHER AT BEDSIDE.
--- NOTE | 2019-05-01 09:30 | NUR ---
KEYSHA CHRISTIAN SCIENCE PRACTITIONER UPDATED ON PATIENT C/O BEING NERVOUS AND BREATHING STATUS.
--- NOTE | 2019-05-01 09:42 | NUR ---
PATIENT C/O OF BEING EXTREMLY NERVOUS AND RECEIVED VALIUM 10MG PO RECEIVING BREATHING TX AT THIS TIME PER ORDER FROM [employer]
[2019-05-01] MEDS ORDERED: LAMICTAL200 MG PO (09:56)
[2019-05-01] MEDS ORDERED: DESYREL DIVIDO300 MG PO (09:57)
[2019-05-01] MEDS ORDERED: LIPITOR 80MG80 MG PO (09:57)
[2019-05-01] MEDS ORDERED: PHENERGAN 25 TA25 MG PO (10:04)
[2019-05-01] MEDS ORDERED: ASPIRIN E.C. 8181 MG PO (10:05)
[2019-05-01] MEDS ORDERED: NORCO 325 MG-51 TAB PO (10:06)
[2019-05-01] MEDS ORDERED: TYLENOL 325MG325 MG PO (10:07)
[2019-05-01] MEDS ORDERED: NOVOLOG 100U100 U/M1 SQ (10:09)
[2019-05-01] MEDS ORDERED: PYRIDIUM200 M1 PO (10:10)
[2019-05-01] MEDS ORDERED: K-DUR20 MEQ PO (10:12)
[2019-05-01] MEDS ORDERED: MAGNESIUM200 MG PO (10:13)
[2019-05-01 12:55] VITALS: BP 144/68; PULSE 88; TEMP 98.2
--- NOTE | 2019-05-01 12:55 | NUR ---
TO RM 6 PER FROM PACU. ALERT ORIENTED X3, TALKING WITH STAFF AND MOTHER. C/O PAIN 09/07. C/O SLIGHT NAUSEA. RIGHT LEG ELEVATED AND ICED. CAM BOOT ON AND DRESSINGS CLEAN DRY INTACT.
[2019-05-01 13:00] VITALS: BP 155/72; PULSE 89
--- NOTE | 2019-05-01 13:00 | NUR ---
02 SAT 90-92 ON 4L PER NC. RECEIVED WATER AND CRACKERS.
[2019-05-01 13:15] VITALS: BP 146/75; PULSE 91
--- NOTE | 2019-05-01 13:15 | NUR ---
ATE 100% AND TOLERATED WELL.
[2019-05-01 13:30] VITALS: BP 154/73; PULSE 90
--- NOTE | 2019-05-01 13:30 | NUR ---
UP TO BEDSIDE COMMODE AND VOIDED. AFTER GETTING BACK TO BED, C/O PAIN INCRASING AND ASK FOR IV PAIN MED. I EXPLAINED SHE HAD PAIN MED IN PACU, BUT ENCOURAGED HER TO TRY ORAL MEDS TO SEE IF THAT WOULD HELP HER PAIN.
--- NOTE | 2019-05-01 13:46 | NUR ---
RECEIVED NORCO 7.5MG 2 TAB.
[2019-05-01 14:10] VITALS: BP 144/73; PULSE 88
--- NOTE | 2019-05-01 14:10 | NUR ---
PATIENT SLEEPING SOUNDLY AND SNORING. O2 SAT 94% ON 2L. PLATFORM MATERIAL HANDLER MANAGER FROM [employer] CALLED TO REPORTING CONSULTANT PATIENT. HE WILL CALL WHEN HE IS AVAILABLE TO COME GET PATIENT. PATIENT RECEIVED DISCHARGE INSTRUCTIONS AND VERBALIZED UNDERSTANDING. DISCONTINUED IV AND INT- CATHETER INTACT. ASSISTED DRESSED AND ASSISTED BACK TO BED TO REST TILL RIDE ARRIVES.
--- NOTE | 2019-05-01 14:40 | NUR ---
REPORT CALLED TO [facility]. PATIENT SLEEPING QUIETLY
--- NOTE | 2019-05-01 15:00 | NUR ---
CALLED SUSIE RAIL CAR REPAIR CARMAN FOR [facility] TO CONFIRM HE HAD MY # TO CALL UPON ARRIVAL TO HOSPITAL. PATIENT RECEIVED MUFFIN AND JUICE.
--- NOTE | 2019-05-01 15:45 | NUR ---
DISCHARGED PER BY NURSING STAFF TO [facility] IN CARE OF [facility])
== END 2019-05-01 15:49 | disposition home or self-care (01) ==
LOC: SDCO 08:06
DX: S92.354K Nondisplaced fracture of fifth metatarsal bone, right foot, subsequent encounter for fracture with nonunion (principal); G89.21 Chronic pain due to trauma; Z79.899 Other long term (current) drug therapy; I10 Essential (primary) hypertension; J45.909 Unspecified asthma, uncomplicated; Z86.73 Personal history of transient ischemic attack (TIA), and cerebral infarction without residual deficits; E10.9 Type 1 diabetes mellitus without complications; Z79.4 Long term (current) use of insulin; I42.9 Cardiomyopathy, unspecified; M54.5 Low back pain; Z88.6 Allergy status to analgesic agent; Z88.1 Allergy status to other antibiotic agents; Z88.8 Allergy status to other drugs, medicaments and biological substances; F32.9 Major depressive disorder, single episode, unspecified; F43.10 Post-traumatic stress disorder, unspecified
CPT/HCPCS: C1713; J0690; J2250; J2405; J2550; J2704; J2795; J3010; J7030

== ENCOUNTER 2019-05-10 01:31 | Emergency (ER) | payer MEDICARE, MEDICAID ==
[~2019-05-10] VITALS: Ht 154.9 cm; Wt 111.8 kg
[~2019-05-10 01:31] MED LIST changes: +DESYREL DIVIDO300 MG PO; +LAMICTAL200 MG PO; +MAGNESIUM200 MG PO
[2019-05-10 01:32] VITALS: TEMP 98.2
[2019-05-10] MEDS ORDERED: DOXYCYCLINE HY100 MG PO (03:04)
[2019-05-10 04:16] VITALS: BP 138/77
[2019-05-10 05:32] VITALS: PULSE 68
== END 2019-05-10 05:32 | disposition home or self-care (01) ==
LOC: COL.ER 01:31
DX: M25.571 Pain in right ankle and joints of right foot (principal); G89.18 Other acute postprocedural pain; Z87.81 Personal history of (healed) traumatic fracture; Z79.51 Long term (current) use of inhaled steroids
CPT/HCPCS: J1170; J2405

== ENCOUNTER → 2019-05-19 | Outpatient (CLI) | payer MEDICARE, MEDICAID ==
[~2019-05-19] MED LIST changes: +DOXYCYCLINE HY100 MG PO
[2019-05-19 13:26] LABS: COLLECTION METHOD CLEAN CATCH
[2019-05-19 13:34] LABS: MUCOUS Present /lpf; PH 6 (5-8); URINE APPEARANCE Clear; URINE BACTERIA Rare /hpf; URINE BILIRUBIN Negative (NEGATIVE); URINE BLOOD Negative (NEGATIVE); URINE COLOR Straw; URINE GLUCOSE 3+ (NEGATIVE); URINE KETONE Negative (NEGATIVE); URINE LEUKOCYTE ESTERASE Negative (NEGATIVE); URINE NITRATE Negative (NEGATIVE); URINE PROTEIN(semi-quant) Negative (NEGATIVE); URINE RBC 0-2 /hpf; URINE UROBILINOGEN Negative (NEGATIVE); URINE WBC 0-2 /hpf
== END ==
LOC: ZCOL.LAB 13:09
PROVIDERS: Emergency Medicine
DX: N39.0 Urinary tract infection, site not specified (principal)

== ENCOUNTER → 2019-06-27 | Outpatient (CLI) | payer MEDICARE, MEDICAID ==
[2019-06-27 11:57] LABS: BASO % 0.4 % (0.0-2.0); EOS # 0.1 (0.0-0.7); EOS % 0.9 % (0-4.0); GRAN # 7.9 (1.4-6.5); GRAN % 72.3 % (42.2-75.2); HEMATOCRIT 32.9 % (37.0-47.0); HEMOGLOBIN 10.4 g/dl (12.5-16.0); LYMPH # 2.3 (1.2-3.4); LYMPH % 20.8 % (20.0-51.0); MEAN CELL VOLUME 82 fl (80.0-100.0); MEAN CORPUSCULAR HEMOGLOBIN 26 pg (27.0-31.0); MEAN CORPUSCULAR HGB CONC 32 g/dl (33.0-37.0); MONO # 0.5 (0.1-0.6); MONO % 4.3 % (1.7-9.3); PLATELET COUNT 153 K/mm3 (130-400); RED BLOOD COUNT 4.01 M/mm3 (4.10-5.30); REDCELL DISTRIBUTION WIDTH-CV 16.1 % (11.5-14.5)
[2019-06-27 12:34] LABS: CALCIUM 9.1 mg/dL (8.4-10.2); CHOLESTEROL RISK RATIO 4.3; CREATININE, serum 0.45 (0.52-1.25); MAGNESIUM 1.7 mg/dL (1.6-2.3); POTASSIUM 4.9 mmol/L (3.4-5.0)
[2019-06-27 13:03] LABS: THYROID STIMULATING HORMONE 2.65 uIU/mL (0.465-4.680)
== END ==
LOC: COL.LAB 11:00
PROVIDERS: Emergency Medicine
DX: I10 Essential (primary) hypertension (principal); E78.5 Hyperlipidemia, unspecified; E11.9 Type 2 diabetes mellitus without complications; E03.9 Hypothyroidism, unspecified

== ENCOUNTER → 2019-07-03 | Outpatient (CLI) | payer MEDICARE, MEDICAID ==
[2019-07-03 16:25] LABS: COLLECTION METHOD CLEAN CATCH
[2019-07-03 16:45] LABS: MUCOUS Present /lpf; PH 5 (5-8); URINE APPEARANCE Clear; URINE BACTERIA Rare /hpf; URINE BILIRUBIN Negative (NEGATIVE); URINE BLOOD Negative (NEGATIVE); URINE COLOR Yellow; URINE GLUCOSE Negative (NEGATIVE); URINE KETONE Negative (NEGATIVE); URINE LEUKOCYTE ESTERASE Negative (NEGATIVE); URINE NITRATE Negative (NEGATIVE); URINE PROTEIN(semi-quant) Negative (NEGATIVE); URINE RBC 0-2 /hpf; URINE UROBILINOGEN Negative (NEGATIVE); URINE WBC 0-2 /hpf
== END ==
LOC: ZCOL.LAB 14:18
PROVIDERS: Emergency Medicine
DX: N39.0 Urinary tract infection, site not specified (principal)

== ENCOUNTER 2020-05-20 21:52 | Emergency (ER) | payer MEDICARE, MEDICAID ==
[~2020-05-20] VITALS: Wt 105.0 kg
[2020-05-20 21:59] VITALS: TEMP 98.1
[2020-05-20 22:53] LABS: HEMOGLOBIN 11.5 g/dl (12.5-16.0); MEAN CELL VOLUME 89 fl (80.0-100.0); MEAN CORPUSCULAR HEMOGLOBIN 28 pg (27.0-31.0); MEAN CORPUSCULAR HGB CONC 32 g/dl (33.0-37.0); MEAN PLATELET VOLUME 9.6 fl (7.4-10.4); PLATELET COUNT 175 K/mm3 (130-400); RED BLOOD COUNT 4.07 M/mm3 (4.10-5.30); REDCELL DISTRIBUTION WIDTH-CV 15.6 % (11.5-14.5)
[2020-05-20 22:54] LABS: HEMATOCRIT 36.1 % (37.0-47.0)
[2020-05-20 23:01] LABS: ALBUMIN 4.7 gm/dL (3.5-5.0); BILIRUBIN,TOTAL 0.2 mg/dL (0.0-1.0); C-REACTIVE PROTEIN 1.7 mg/dL (0.0-0.9); CALCIUM 9.8 mg/dL (8.4-10.2); CREATININE, serum 0.64 (0.52-1.25); POTASSIUM 4.1 mmol/L (3.4-5.0); TOTAL PROTEIN 8.7 gm/dL (6.4-8.2)
[2020-05-20 23:19] LABS: ANISOCYTOSIS 1+; BAND 5 % (0-10); EOSINOPHIL 1 % (0-4); HYPOCHROMIA 2+; LYMPHOCYTE 31 % (20.0-51.0); NEUTROPHILS 56 % (42.0-75.2); PLATELET ESTIMATE NORMAL (NORMAL)
[2020-05-21 00:51] VITALS: BP 155/73; PULSE 82
[2020-05-22] MEDS ORDERED: GEODON 20 MG20 MG PO (19:12)
[2020-05-22] MEDS ORDERED: ATARAX50 MG PO (19:16)
[2020-05-22] MEDS ORDERED: TOPAMAX50 MG PO (19:20)
[2020-05-22] MEDS ORDERED: TRELEGY ELLIPT1 EACH IH (19:20)
[2020-05-22] MEDS ORDERED: REGLAN 10MG10 MG/TAB PO (19:21)
[2020-05-22] MEDS ORDERED: ALBUTEROL0.83 MG/ML IH (19:21)
[2020-05-22] MEDS ORDERED: IRON TABLETS325 MG PO (19:21)
[2020-05-22] MEDS ORDERED: VENTOLIN0.09 MG IH (19:22)
[2020-05-22] MEDS ORDERED: MINIMED 530G1 EACH (19:22)
== END 2020-05-21 00:51 | disposition home or self-care (01) ==
LOC: COL.ER 21:52
PROVIDERS: Nurse Practitioner
DX: R10.10 Upper abdominal pain, unspecified (principal); J44.9 Chronic obstructive pulmonary disease, unspecified; Z90.49 Acquired absence of other specified parts of digestive tract; Z88.8 Allergy status to other drugs, medicaments and biological substances; Z88.1 Allergy status to other antibiotic agents; Z88.6 Allergy status to analgesic agent; Z79.82 Long term (current) use of aspirin
CPT/HCPCS: J1170; J2405; J7030

== ENCOUNTER 2020-05-22 15:40 | Inpatient (IN) | payer MEDICARE, MEDICAID ==
[~2020-05-22] VITALS: Ht 154.9 cm; Wt 107.5 kg
[2020-05-22 16:41] LABS: ALANINE AMINOTRANSFERASE 36 U/L (4-34); ALBUMIN 4.3 gm/dL (3.5-5.0); ALKALINE PHOSPHATASE 240 U/L (50-136); ANION GAP 7 mmol/L (7-16); AST,SGOT 59 U/L (15-37); BILIRUBIN,TOTAL 0.1 mg/dL (0.0-1.0); BLOOD UREA NITROGEN 13 mg/dL (7-17); CALCIUM 9.2 mg/dL (8.4-10.2); CARBON DIOXIDE 30 mmol/L (22-30); CHLORIDE 103 mmol/L (98-107); CREATININE, serum 0.66 (0.52-1.25); GLUCOSE 219 mg/dL (74-106); LIPASE 132 U/L (23-300); POTASSIUM 4.6 mmol/L (3.4-5.0); SODIUM 140 mmol/L (137-145); TOTAL PROTEIN 7.9 gm/dL (6.4-8.2)
[2020-05-22 16:45] LABS: BASO % 0.5 % (0.0-2.0); EOS # 0.1 (0.0-0.7); EOS % 0.9 % (0-4.0); GRAN # 6.2 (1.4-6.5); GRAN % 73.1 % (42.2-75.2); HEMATOCRIT 32.7 % (37.0-47.0); HEMOGLOBIN 10.2 g/dl (12.5-16.0); LYMPH # 1.6 (1.2-3.4); LYMPH % 18.5 % (20.0-51.0); MEAN CELL VOLUME 90 fl (80.0-100.0); MEAN CORPUSCULAR HEMOGLOBIN 28 pg (27.0-31.0); MEAN CORPUSCULAR HGB CONC 31 g/dl (33.0-37.0); MEAN PLATELET VOLUME 9.6 fl (7.4-10.4); MONO # 0.5 (0.1-0.6); MONO % 5.7 % (1.7-9.3); PLATELET COUNT 146 K/mm3 (130-400); RED BLOOD COUNT 3.64 M/mm3 (4.10-5.30); REDCELL DISTRIBUTION WIDTH-CV 15.5 % (11.5-14.5)
[2020-05-22 16:47] LABS: PROTHROMBIN TIME 11.6 SECONDS (9.7-12.8)
[2020-05-22 16:53] LABS: TROPONIN-I < 0.012 ng/mL (0.000-0.035)
[2020-05-22] MEDS ORDERED: GEODON 20 MG20 MG PO (19:12)
[2020-05-22] MEDS ORDERED: ATARAX50 MG PO (19:16)
[2020-05-22] MEDS ORDERED: TRELEGY ELLIPT1 EACH IH (19:20)
[2020-05-22] MEDS ORDERED: TOPAMAX50 MG PO (19:20)
[2020-05-22] MEDS ORDERED: ALBUTEROL0.83 MG/ML IH (19:21)
[2020-05-22] MEDS ORDERED: IRON TABLETS325 MG PO (19:21)
[2020-05-22] MEDS ORDERED: REGLAN 10MG10 MG/TAB PO (19:21)
[2020-05-22] MEDS ORDERED: VENTOLIN0.09 MG IH (19:22)
[2020-05-22] MEDS ORDERED: MINIMED 530G1 EACH (19:22)
[2020-05-22 20:14] LABS: COLLECTION METHOD CLEAN CATCH
[2020-05-22 20:21] LABS: PH 9 (5-8); SQUAMOUS EPITHELIAL None Seen /hpf; URINE APPEARANCE Clear; URINE BACTERIA None Seen /hpf; URINE BILIRUBIN Negative (NEGATIVE); URINE BLOOD Negative (NEGATIVE); URINE COLOR Yellow; URINE GLUCOSE Negative (NEGATIVE); URINE KETONE Negative (NEGATIVE); URINE LEUKOCYTE ESTERASE Negative (NEGATIVE); URINE NITRATE Negative (NEGATIVE); URINE PROTEIN(semi-quant) Negative (NEGATIVE); URINE RBC 0-2 /hpf
--- NOTE | 2020-05-22 22:20 | NUR ---
Received patient from ED. She is alert and oriented. She is on O2 at 4lpm via NC. With INT on left forearm, flushes well. She has insulin pump. At first she doesn't want Insulin coming from the hospital but informed her that they put an order to discontinue it for now to better monitor her insulin intake and blood glucose. Patient agreed and removed her insulin pump. She has chronic abdominal pain and reports only [employer] works for her. She complains of nausea as well. She requested to have an advance directive. Will pass this on to day shift. On seizure precaution.
[2020-05-22 23:03] VITALS: BP 133/52; PULSE 77; TEMP 98
--- NOTE | 2020-05-22 23:25 | NUR ---
At 2238H, patient's blood glucos is 52mg/dl. Her insulin pump has been discontinued already. [place] juice was given and rechecked after 15 minutes it was at 54mg/dl. Updated Marlin JONES via phone call. Will initiate hypoglycemia protocol. Levemir was not given yet and was put on hold. Gave patient another orange juice and sandwich box but because of nausea she wasn't able to finish everything in the sandwich box. Rechecked glucose again and it went up to 92mg/dl. Patient complains of sharp,constant abdominal pain. Dilaudid was given.
[2020-05-23] VITALS (7 sets, daily range): BP systolic 111–197; BP diastolic 44–81; PULSE 69–94; TEMP 98–98.8
--- NOTE | 2020-05-23 06:09 | NUR ---
Patient continues to have abdominal pain. Dilaudid IV was given. She was able to sleep last night. Had one episode of nausea, Phenergan was given.
[2020-05-23 06:20] LABS: BASO % 0.2 % (0.0-2.0); EOS # 0.1 (0.0-0.7); GRAN # 6.3 (1.4-6.5); GRAN % 69.9 % (42.2-75.2); LYMPH % 22.4 % (20.0-51.0); MEAN CELL VOLUME 92 fl (80.0-100.0); MEAN CORPUSCULAR HGB CONC 31 g/dl (33.0-37.0); MEAN PLATELET VOLUME 9.5 fl (7.4-10.4); MONO # 0.5 (0.1-0.6); MONO % 5.4 % (1.7-9.3); PLATELET COUNT 134 K/mm3 (130-400); RED BLOOD COUNT 3.48 M/mm3 (4.10-5.30); REDCELL DISTRIBUTION WIDTH-CV 15.8 % (11.5-14.5)
[2020-05-23 06:21] LABS: HEMATOCRIT 31.9 % (37.0-47.0); HEMOGLOBIN 9.8 g/dl (12.5-16.0); MEAN CORPUSCULAR HEMOGLOBIN 28 pg (27.0-31.0)
[2020-05-23 06:33] LABS: CALCIUM 8.9 mg/dL (8.4-10.2); CREATININE, serum 0.63 (0.52-1.25); POTASSIUM 4.3 mmol/L (3.4-5.0)
--- NOTE | 2020-05-23 06:45 | NUR ---
PT IS LAYING IN BED, HAS C/O PAIN IN THE ABD. ASSESSMENT COMPLETED. NO OTHER CONCERNS AT THIS TIME. ALL CONSULTS HAVE BEEN CONTACTED.
--- NOTE | 2020-05-23 07:02 | NUR ---
Called Dr. Vargas for Onco consult and Dr. Kingsley for GI consult.
[2020-05-23 12:39] LABS: IRON,SERUM 37 ug/dL (35-150)
[2020-05-23 12:48] LABS: TOTAL IRON BINDING CAPACITY 369 ug/dL (265-497)
--- NOTE | 2020-05-23 13:04 | NUR ---
Materials Research Engineer met with patient to discuss discharge planning. Patient reports she recently moved to [place] (about three weeks ago) and lives alone. Patient states she lives in a disabled community and has a lot of support. Patient sees Dr. Maldonado for primary care and obtains medications from [facility] [address] in . Patient states her mother, Samaria (ph#[phone]) takes her to medicinal plant picker her medications as she cannot drive. Patient also utilizes public transportation as needed. Patient has a walker and home oxygen through [facility]. Patient states she is independent with ADLS and that her mother helps her with anything she needs. Patient requests to complete DPOA-HC and wishes to designate her mother, Samaria and her son, Brian who lives in [place]. DELANO assisted patient in completing DPOA-HC form then DELANO and SUSHIL Rodrigues provided witness signatures. DELANO provided original and copies to patient then placed copy on chart. SW attempted to contact patient's mother, Samaria and left a message to review discharge plan. Patient plans to return home upon discharge.
--- NOTE | 2020-05-23 14:02 | NUR ---
Primary nurse was assisted with [phone] patient care by [employer] student Ashlyn Fields and [employer] instructor Teresa Hankins MSN, RN.
--- NOTE | 2020-05-23 19:27 | NUR ---
REPORT GIVEN TO SUSHIL LOPEZ. PT HAS HAD NO IV ACCESS AND MULTIPLE ATTEMPTS HAVE BEEN MADE. LICENSED AIRCRAFT MAINTENANCE ENGINEER HAD BEEN CALLED, BUT HAS BEEN BUSY. ANESTHESIA CONTACTED TO PLACE EXTERNAL JUGULAR. PT IS COMPLAINING OF PAIN. NO OTHER CONCERNS.
--- NOTE | 2020-05-23 19:28 | NUR ---
Received report from Sindi. Patient is awake and in pain. No IV access yet. Informed her that we are waiting for the anesthesiologist to come for insertion.
--- NOTE | 2020-05-23 20:45 | NUR ---
Anesthesiologist able to insert an IV access on her left foot. Dilaudid PRN and Phenergan given. She reports pain of 9/10. Still on O2 at 4lpm via NC. Instructed her to call us if she needs to have a BM for specimen of her stool occult. She voices understanding.
[2020-05-23 22:34] LABS: FOLATE (FOLIC ACID) 17.4 ng/mL (7.0-31.4)
[2020-05-24 03:46] VITALS: BP 118/46; PULSE 79; TEMP 97.9
--- NOTE | 2020-05-24 06:02 | NUR ---
Patient still asking for Dilaudid every 2 hours. Her pain score is about 5-9/10. Phenergan given once last night. INT on left foot flushes well and with good blood return.
[2020-05-24 06:21] LABS: MEAN CELL VOLUME 91 fl (80.0-100.0); MEAN CORPUSCULAR HGB CONC 31 g/dl (33.0-37.0); MEAN PLATELET VOLUME 9.7 fl (7.4-10.4); PLATELET COUNT 145 K/mm3 (130-400); REDCELL DISTRIBUTION WIDTH-CV 15.4 % (11.5-14.5)
[2020-05-24 06:25] LABS: HEMATOCRIT 31.7 % (37.0-47.0); HEMOGLOBIN 9.9 g/dl (12.5-16.0); MEAN CORPUSCULAR HEMOGLOBIN 28 pg (27.0-31.0)
[2020-05-24 06:41] LABS: BILIRUBIN,TOTAL 0.3 mg/dL (0.0-1.0); CALCIUM 8.6 mg/dL (8.4-10.2); CREATININE, serum 0.66 (0.52-1.25); MAGNESIUM 1.9 mg/dL (1.6-2.3); POTASSIUM 4.1 mmol/L (3.4-5.0); TOTAL PROTEIN 7.3 gm/dL (6.4-8.2)
[2020-05-24 08:00] VITALS: BP 114/51; PULSE 96; TEMP 97.5
--- NOTE | 2020-05-24 10:25 | NUR ---
PATIENT WAKES EASILY, REQUESTING PAIN MEDICATION FOR ABDOMINAL PAIN RATES 8/10. PATIENT FALLS TO SLEEP EASILY. N/C OF NAUSEA BUT STATES SHE DOES NOT HAVE AN APPETITE.
[2020-05-24 12:51] VITALS: BP 117/56; PULSE 85; TEMP 98.3
--- NOTE | 2020-05-24 13:46 | NUR ---
Bilingual Legal Assistant attended clinical rounds with the team and patient to have PICC placed today. DELANO followed up with patient about therapy recommendation for post acute rehab vs home with home health services. Patient is not interested in post acute rehab at this time but was agreeable to services. DELANO reviewed Medicare.gov list of agencies that serve [place] and patient selected [facility]. DELANO faxed referral to Sully at [facility] who advised they would be able to accept patient. Sully advised patient may even be appropriate to have visits from their psych nurse if needed. DELANO contacted patient's mother, Samaria to review discharge plan. Samaria feels HH will benefit patient and she hopes patient will follow through with services.
[2020-05-24 17:06] VITALS: BP 117/59; PULSE 74; TEMP 98
--- NOTE | 2020-05-24 19:09 | NUR ---
patient has c/o increased pain in abdomen. tylenol 650mg given per order. BS 411 at 1850 - physician contacted and orders received.
[2020-05-24 20:34] VITALS: BP 112/49; PULSE 78; TEMP 98.2
[2020-05-25 00:07] VITALS: BP 126/52; PULSE 77; TEMP 97.9
[2020-05-25 04:16] VITALS: BP 119/43; PULSE 73; TEMP 97.8
[2020-05-25 07:00] LABS: BASO % 0.4 % (0.0-2.0); EOS # 0.1 (0.0-0.7); EOS % 1.4 % (0-4.0); GRAN # 5.5 (1.4-6.5); GRAN % 68.4 % (42.2-75.2); HEMATOCRIT 31.7 % (37.0-47.0); HEMOGLOBIN 9.8 g/dl (12.5-16.0); LYMPH # 1.9 (1.2-3.4); LYMPH % 23.2 % (20.0-51.0); MEAN CELL VOLUME 90 fl (80.0-100.0); MEAN CORPUSCULAR HEMOGLOBIN 28 pg (27.0-31.0); MEAN CORPUSCULAR HGB CONC 31 g/dl (33.0-37.0); MEAN PLATELET VOLUME 9.6 fl (7.4-10.4); MONO # 0.5 (0.1-0.6); MONO % 5.7 % (1.7-9.3); PLATELET COUNT 142 K/mm3 (130-400); RED BLOOD COUNT 3.53 M/mm3 (4.10-5.30)
--- NOTE | 2020-05-25 07:00 | NUR ---
Report received from nightshift nurse. Pt resting in bed with eyes clsoed, will conitnue to monitor.
[2020-05-25 07:12] LABS: ALBUMIN 3.9 gm/dL (3.5-5.0); BILIRUBIN,TOTAL 0.2 mg/dL (0.0-1.0); CALCIUM 8.8 mg/dL (8.4-10.2); CREATININE, serum 0.62 (0.52-1.25); POTASSIUM 3.8 mmol/L (3.4-5.0); TOTAL PROTEIN 7.1 gm/dL (6.4-8.2)
[2020-05-25 08:28] VITALS: BP 125/47; PULSE 83; TEMP 98.5
--- NOTE | 2020-05-25 09:00 | NUR ---
Assessment charted, pt c/o pain to abd at 09/07, PRN meds provided. Eating CLD tolerating well, PICC to KIKI, resting in bed. 02 at 4LNC baseline. Will conitnue to monitor.
[2020-05-25] MEDS ORDERED: NEURONTIN600 MG/TAB PO (09:52)
[2020-05-25] MEDS ORDERED: LASIX 20MG TABL20 MG PO (09:54)
[2020-05-25] MEDS ORDERED: CARAFATE 1GM1 G PO (09:54)
[2020-05-25 12:06] VITALS: BP 105/76; PULSE 72; TEMP 98.2
[2020-05-25 16:08] VITALS: BP 114/51; PULSE 72; TEMP 98.4
--- NOTE | 2020-05-25 19:34 | NUR ---
Bedside shift report given ot nightshift nurse who will resume car.e Pt c/o pain at 10/10 at abd after eating supper. Called ROBERT Isaac and notified of this and no options for PRN tramadol until 1030 pm, no new orders given , nightshift to resume care.
--- NOTE | 2020-05-25 19:43 | NUR ---
patient complains of abdominal pain - call placed to Marlin Peralta, no new orders, updated patient on GI recommendations re: narcotic use with gastropareisis, patient verbalizes understanding, heating pad for abdomen accepted, no further c./o at this time.
[2020-05-25 19:57] VITALS: BP 119/68; PULSE 76; TEMP 98.6
[2020-05-26 00:05] VITALS: BP 119/51; PULSE 78; TEMP 98.7
[2020-05-26 03:23] VITALS: BP 114/53; PULSE 80; TEMP 98.1
--- NOTE | 2020-05-26 07:00 | NUR ---
Report received from SUSHIL Nicole. Pt in bed sleeping soundly, will continue to monitor.
[2020-05-26 07:56] VITALS: BP 117/46; PULSE 80; TEMP 97.8
[2020-05-26] MEDS ORDERED: PROMETHAZINE12.5 M5 PO (08:55)
--- NOTE | 2020-05-26 10:10 | NUR ---
Assessment charted. Pt resting in bed with eyes closed, awakens upon entry, c/o pain at 10/10 to abd upon awakening, refusing all PO meds d/t nausea, refusing pain meds as well. Pain is in ABD. PICC to KIKI, flushes with good blood return. PRN nausea meds given. Disucssed with Dr. Avery that we will still discharge pt as there is no acute care need to stay. Will continue to monitor.
[2020-05-26 11:24] VITALS: BP 137/57; PULSE 82; TEMP 98.1
--- NOTE | 2020-05-26 12:57 | NUR ---
Discharge teaching completed at this. Pt received discharge packet, reviewed insturctions, follow up appointments, medication changes. PICC dc home instructions given. PICC dc'd per orders, see intervention. Pt will be leaving with all belongings via wheelchair with medical staff. Mother to drive home, criteria met.
--- NOTE | 2020-05-26 13:17 | NUR ---
DELANO update. Patient is schedule to [place]. Patient reports that she does not feel ready to go home and both DELANO and educated that she would need to follow-up with her specialist in [place]. Patient reports that she does not have a ride. DELANO educated patient on transportation setup with her insurance. Patient reports that she has used it in the past and knows how. Patient reports that she [facility] services too and sees Dr. Seay for primary care and Ger Llanes for speciality care. DELANO faxed DC orders to [facility]. Patient reports that her mother Samaria can give her a ride home at 01:00 p.m. [phone]. Patient reports that she wants to stay until then, Staffed with about this plan, [place] was in agreement. NF
== END 2020-05-26 13:15 | disposition home health service (06) | DRG 291 ==
LOC: COL.ER 15:40 → MEDICAL 17:37
PROVIDERS: Emergency Medicine; Nurse Practitioner Family; Physician Assistant; ADMIT Family Medicine
PROC: 0DB68ZX Excision of Stomach, Via Natural or Artificial Opening Endoscopic, Diagnostic (ICD-10-PCS; 2020-05-23)
PROC: 02HV33Z Insertion of Infusion Device into Superior Vena Cava, Percutaneous Approach (ICD-10-PCS; principal; 2020-05-24)
DX: I11.0 Hypertensive heart disease with heart failure (principal); K29.71 Gastritis, unspecified, with bleeding; J96.11 Chronic respiratory failure with hypoxia; F11.20 Opioid dependence, uncomplicated; C16.9 Malignant neoplasm of stomach, unspecified; Z68.41 Body mass index [BMI] 40.0-44.9, adult; I50.33 Acute on chronic diastolic (congestive) heart failure; J44.9 Chronic obstructive pulmonary disease, unspecified; E11.40 Type 2 diabetes mellitus with diabetic neuropathy, unspecified; Z20.822 Contact with and (suspected) exposure to COVID-19; E11.649 Type 2 diabetes mellitus with hypoglycemia without coma; K31.84 Gastroparesis; K21.9 Gastro-esophageal reflux disease without esophagitis; E03.9 Hypothyroidism, unspecified; G40.909 Epilepsy, unspecified, not intractable, without status epilepticus; E66.01 Morbid (severe) obesity due to excess calories; F41.9 Anxiety disorder, unspecified; F31.9 Bipolar disorder, unspecified; K59.00 Constipation, unspecified; E78.5 Hyperlipidemia, unspecified; R53.81 Other malaise; Z96.82 Presence of neurostimulator; Z86.16 Personal history of COVID-19; Z88.8 Allergy status to other drugs, medicaments and biological substances
CPT/HCPCS: 99223-AI; 99232-AI; 99233-AI; 99239; C1751; C1892; J1170; J1650; J1815; J1940; J2060; J2405; J2550; J2704; J7030; Q9967

== ENCOUNTER 2020-06-07 16:44 | Emergency (ER) | payer MEDICARE, MEDICAID ==
[~2020-06-07] VITALS: Ht 154.9 cm; Wt 110.0 kg
[~2020-06-07 16:44] MED LIST changes: +ALBUTEROL0.83 MG/ML IH; +CARAFATE 1GM1 G PO; +GEODON 20 MG20 MG PO; +IRON TABLETS325 MG PO; +MINIMED 530G1 EACH; +NEURONTIN600 MG/TAB PO; +PROMETHAZINE12.5 M5 PO; +TOPAMAX50 MG PO; +TRELEGY ELLIPT1 EACH IH
[2020-06-07 16:53] VITALS: TEMP 98.6
[2020-06-07 17:23] LABS: HEMOGLOBIN 10.9 g/dl (12.5-16.0); MEAN CELL VOLUME 89 fl (80.0-100.0); MEAN CORPUSCULAR HEMOGLOBIN 29 pg (27.0-31.0); MEAN CORPUSCULAR HGB CONC 32 g/dl (33.0-37.0); MEAN PLATELET VOLUME 9.2 fl (7.4-10.4); PLATELET COUNT 166 K/mm3 (130-400); RED BLOOD COUNT 3.83 M/mm3 (4.10-5.30)
[2020-06-07 17:29] LABS: ALANINE AMINOTRANSFERASE 38 U/L (4-34); ALBUMIN 4.4 gm/dL (3.5-5.0); ALKALINE PHOSPHATASE 308 U/L (50-136); ANION GAP 9 mmol/L (7-16); AST,SGOT 65 U/L (15-37); BILIRUBIN,TOTAL < 0.1 mg/dL (0.0-1.0); BLOOD UREA NITROGEN 16 mg/dL (7-17); CALCIUM 9.5 mg/dL (8.4-10.2); CARBON DIOXIDE 32 mmol/L (22-30); CHLORIDE 98 mmol/L (98-107); CREATININE, serum 0.59 (0.52-1.25); GLUCOSE 191 mg/dL (74-106); LIPASE 65 U/L (23-300); POTASSIUM 3.9 mmol/L (3.4-5.0); SODIUM 140 mmol/L (137-145); TOTAL PROTEIN 8.3 gm/dL (6.4-8.2)
[2020-06-07 17:55] LABS: COLLECTION METHOD CLEAN CATCH
[2020-06-07 17:56] LABS: TROPONIN-I < 0.012 ng/mL (0.000-0.035)
[2020-06-07 18:02] LABS: MUCOUS Present /lpf; PH 6 (5-8); URINE APPEARANCE Clear; URINE BACTERIA None Seen /hpf; URINE BILIRUBIN Negative (NEGATIVE); URINE BLOOD Negative (NEGATIVE); URINE COLOR Yellow; URINE GLUCOSE Negative (NEGATIVE); URINE KETONE Negative (NEGATIVE); URINE LEUKOCYTE ESTERASE Negative (NEGATIVE); URINE NITRATE Negative (NEGATIVE); URINE PROTEIN(semi-quant) Negative (NEGATIVE); URINE RBC 0-2 /hpf; URINE UROBILINOGEN Negative (NEGATIVE)
[2020-06-07 18:55] LABS: BAND 2 % (0-10); EOSINOPHIL 2 % (0-4); LYMPHOCYTE 19 % (20.0-51.0); MICROCYTOSIS 1+; NEUTROPHILS 73 % (42.0-75.2)
[2020-06-07 18:56] LABS: HYPOCHROMIA 1+
[2020-06-07 18:57] LABS: ANISOCYTOSIS 1+; PLATELET ESTIMATE NORMAL (NORMAL)
[2020-06-07 19:00] VITALS: BP 147/81; PULSE 85
== END 2020-06-07 19:00 | disposition home or self-care (01) ==
LOC: COL.ER 16:44
PROVIDERS: Nurse Practitioner Primary Care
DX: R10.10 Upper abdominal pain, unspecified (principal); R11.2 Nausea with vomiting, unspecified; J44.9 Chronic obstructive pulmonary disease, unspecified; Z90.49 Acquired absence of other specified parts of digestive tract; Z86.16 Personal history of COVID-19; Z88.8 Allergy status to other drugs, medicaments and biological substances; Z88.1 Allergy status to other antibiotic agents; Z85.028 Personal history of other malignant neoplasm of stomach; Z79.82 Long term (current) use of aspirin; Z79.4 Long term (current) use of insulin
CPT/HCPCS: J0780

== ENCOUNTER 2020-06-24 06:23 | Day surgery (SDC) | payer MEDICARE, MEDICAID ==
[2020-06-24] VITALS (12 sets, daily range): BP systolic 100–168; BP diastolic 49–86; PULSE 10–96; TEMP 98.4
[~2020-06-24] VITALS: Ht 154.9 cm; Wt 107.5 kg
[2020-06-24] MEDS ORDERED: CARAFATE 1GM1 G PO (07:10)
[2020-06-24] MEDS ORDERED: NEURONTIN600 MG/TAB PO (07:43)
[2020-06-24] MEDS ORDERED: LASIX 20MG TABL20 MG PO (07:43)
[2020-06-24 08:26] LABS: HEMOGLOBIN 10.7 g/dl (12.5-16.0); MEAN CELL VOLUME 88 fl (80.0-100.0); MEAN CORPUSCULAR HEMOGLOBIN 28 pg (27.0-31.0); MEAN CORPUSCULAR HGB CONC 32 g/dl (33.0-37.0); MEAN PLATELET VOLUME 9.6 fl (7.4-10.4); PLATELET COUNT 122 K/mm3 (130-400); REDCELL DISTRIBUTION WIDTH-CV 14.6 % (11.5-14.5)
[2020-06-24 08:29] LABS: HEMATOCRIT 33.6 % (37.0-47.0)
[2020-06-24 08:33] LABS: INR 1.1 (0.8-3.0); PROTHROMBIN TIME 12.2 SECONDS (9.7-12.8)
[2020-06-24 08:35] LABS: PARTIAL THROMBOPLASTIN TIME 32.9 SECONDS (26.0-37.0)
[2020-06-24 08:36] LABS: CALCIUM 9.4 mg/dL (8.4-10.2); CREATININE, serum 0.54 (0.52-1.25); POTASSIUM 4.1 mmol/L (3.4-5.0)
--- NOTE | 2020-06-24 08:56 | NUR ---
SEE MERGE DOCUMENTATION FOR MEDICATION ADMINISTRATION TIMES AND INTRA/POST PROCEDURE SEDATION ASSESSMENTS. RIGHT HAND BARBEAU TEST POSITIVE. PT HAVING SEVERE ANXIETY; ONE TIME DOSE OF VERSED 1MG IV RECEIVED FROM DR VINH MCDOWELL.
--- NOTE | 2020-06-24 09:50 | NUR ---
Report from Brenden LING. Transferred from [facility] [employer] by bed. Alert and oriented c/o pain to wrist from Tband. Right Tband with 14 cc air CD&I, good pulses and cap refill < 3 secs noted. VSS. Mother bedside
--- NOTE | 2020-06-24 14:05 | NUR ---
14 cc air released from right Tband and dressing applied. INT discontinued intact. Discharge instructions given. Transferred to private car by meri
== END 2020-06-24 14:05 | disposition home or self-care (01) ==
LOC: COL.CAR 06:23
PROVIDERS: Internal Medicine Cardiovascular Disease
DX: I25.118 Atherosclerotic heart disease of native coronary artery with other forms of angina pectoris (principal); I10 Essential (primary) hypertension; E78.5 Hyperlipidemia, unspecified; Z79.82 Long term (current) use of aspirin; Z20.822 Contact with and (suspected) exposure to COVID-19; Z90.710 Acquired absence of both cervix and uterus; Z90.49 Acquired absence of other specified parts of digestive tract; Z88.1 Allergy status to other antibiotic agents; Z88.5 Allergy status to narcotic agent; Z88.8 Allergy status to other drugs, medicaments and biological substances; F43.10 Post-traumatic stress disorder, unspecified
CPT/HCPCS: C1887; J1644; J2250; J3010; J7030; Q9967

== ENCOUNTER 2020-06-29 22:00 | Inpatient (IN) | payer MEDICARE, MEDICAID ==
[~2020-06-29] VITALS: Ht 154.9 cm; Wt 109.1 kg
[2020-06-29] MEDS ORDERED: COMPAZINE 5MG TA5 MG PO (22:41)
[2020-06-29 23:15] LABS: BASO % 0.3 % (0.0-2.0); EOS # 0.1 (0.0-0.7); EOS % 0.6 % (0-4.0); GRAN # 8.8 (1.4-6.5); GRAN % 76.6 % (42.2-75.2); HEMOGLOBIN 10.3 g/dl (12.5-16.0); LYMPH # 1.8 (1.2-3.4); LYMPH % 16.1 % (20.0-51.0); MEAN CELL VOLUME 86 fl (80.0-100.0); MEAN CORPUSCULAR HEMOGLOBIN 28 pg (27.0-31.0); MEAN CORPUSCULAR HGB CONC 33 g/dl (33.0-37.0); MONO # 0.5 (0.1-0.6); MONO % 4.6 % (1.7-9.3); PLATELET COUNT 128 K/mm3 (130-400); RED BLOOD COUNT 3.66 M/mm3 (4.10-5.30); REDCELL DISTRIBUTION WIDTH-CV 14.2 % (11.5-14.5)
[2020-06-29 23:16] LABS: HEMATOCRIT 31.6 % (37.0-47.0)
[2020-06-29 23:55] LABS: COLLECTION METHOD CLEAN CATCH
[2020-06-30 00:02] LABS: MUCOUS Present /lpf; PH 6 (5-8); URINE APPEARANCE Hazy; URINE BACTERIA Rare /hpf; URINE BILIRUBIN Negative (NEGATIVE); URINE BLOOD Negative (NEGATIVE); URINE COLOR Yellow; URINE GLUCOSE 3+ (NEGATIVE); URINE KETONE Negative (NEGATIVE); URINE LEUKOCYTE ESTERASE Trace (NEGATIVE); URINE NITRATE Negative (NEGATIVE); URINE PROTEIN(semi-quant) Negative (NEGATIVE); URINE UROBILINOGEN Negative (NEGATIVE)
[2020-06-30 00:02] LABS: ALANINE AMINOTRANSFERASE 34 U/L (4-34); ALBUMIN 4.3 gm/dL (3.5-5.0); ALKALINE PHOSPHATASE 300 U/L (50-136); AMYLASE 35 U/L (30-110); ANION GAP 10 mmol/L (7-16); AST,SGOT 52 U/L (15-37); BILIRUBIN,TOTAL 0.1 mg/dL (0.0-1.0); BLOOD UREA NITROGEN 17 mg/dL (7-17); CALCIUM 9.1 mg/dL (8.4-10.2); CARBON DIOXIDE 31 mmol/L (22-30); CHLORIDE 97 mmol/L (98-107); CREATININE, serum 0.57 (0.52-1.25); GLUCOSE 318 mg/dL (74-106); LIPASE 63 U/L (23-300); SODIUM 137 mmol/L (137-145); TOTAL PROTEIN 7.7 gm/dL (6.4-8.2)
[2020-06-30 00:16] LABS: TROPONIN-I < 0.012 ng/mL (0.000-0.035)
[2020-06-30 00:50] LABS: ARTERIAL BLD GAS O2 SATURATION 87.5 % (92-100); ARTERIAL BLOOD GAS BASE EXCESS 4.8 (-2-2); ARTERIAL BLOOD GAS HCO3 32.1 meq/L (22-26); ARTERIAL BLOOD GAS PCO2 61.7 mmHg (35-45); ARTERIAL BLOOD GAS PO2 54.5 mmHg (80-100); ARTERIAL BLOOD GAS pH 7.33 (7.35-7.45)
[2020-06-30] MEDS ORDERED: PREDNISONE20 MG PO (00:53)
[2020-06-30] MEDS ORDERED: PHENERGAN 25 TA25 MG PO (00:54)
[2020-06-30] MEDS ORDERED: ZITHROMAX 250M250 MG PO (00:56)
--- NOTE | 2020-06-30 02:45 | NUR ---
Arrived to unit via stretcher, escorted by ER staff, awake, alert oriented x4, able to give full extensive medical history with current medication list, Norma Correa at bedside assessing patient, patient refused SCDs, assessement completed at this time, updated on current plan of care and current lab values- patient verbalizes understanding.
--- NOTE | 2020-06-30 03:47 | NUR ---
Patient at 88% SPO2 while sleeping, O2@2L per NC applied SPO2 93%, updated patient on event, updated Norma DIEGO, and RT department.
[2020-06-30 04:33] LABS: HEMOGLOBIN 10.6 g/dl (12.5-16.0); MEAN CELL VOLUME 87 fl (80.0-100.0); MEAN CORPUSCULAR HEMOGLOBIN 28 pg (27.0-31.0); MEAN CORPUSCULAR HGB CONC 32 g/dl (33.0-37.0); MEAN PLATELET VOLUME 9.5 fl (7.4-10.4); PLATELET COUNT 129 K/mm3 (130-400); REDCELL DISTRIBUTION WIDTH-CV 14.5 % (11.5-14.5)
[2020-06-30 04:44] LABS: CALCIUM 8.8 mg/dL (8.4-10.2); CREATININE, serum 0.57 (0.52-1.25); POTASSIUM 4.3 mmol/L (3.4-5.0)
[2020-06-30 04:49] VITALS: BP 128/47; PULSE 81; TEMP 98.7
[2020-06-30 04:58] LABS: BAND 2 % (0-10); LYMPHOCYTE 14 % (20.0-51.0); NEUTROPHILS 83 % (42.0-75.2); PLATELET ESTIMATE DECREASED (NORMAL)
[2020-06-30 05:35] LABS: ARTERIAL BLD GAS O2 SATURATION 96.4 % (92-100); ARTERIAL BLD GAS TCO2 CT 32.5; ARTERIAL BLOOD GAS BASE EXCESS 3.2 (-2-2); ARTERIAL BLOOD GAS HCO3 30.7 meq/L (22-26); ARTERIAL BLOOD GAS PCO2 61.3 mmHg (35-45); ARTERIAL BLOOD GAS PO2 90.9 mmHg (80-100); ARTERIAL BLOOD GAS pH 7.32 (7.35-7.45)
--- NOTE | 2020-06-30 07:00 | NUR ---
Report with SUSHIL Nicole. Pt resting in bed, awake and alert, reports pain to right abd is increasing again. IVF's infusing per orders. No further needs reported. Call light in reach.
--- NOTE | 2020-06-30 07:45 | NUR ---
Assessment complete. Pt resting in bed, A&O x 4, reports pain to right abd 9 out of 10 with nausea. Physical assessment otherwise unremarkable. IVF's infusing per orders to right forearm without s/s of complications. 4 L/min O2 via NC which is pt's baseline. PRN medication administered per orders and pt's request. No further needs reported. Call light in reach.
[2020-06-30 07:57] VITALS: BP 146/60; PULSE 86; TEMP 98.4
--- NOTE | 2020-06-30 09:45 | NUR ---
Pt reports personal insulin pump is close to empty. This nurse explains policy that we are not able to fill the pump for her, pt verbalizes understanding and chooses to take pump off and use hospital administered insulin while here. Provider notified.
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
[2020-06-30 12:18] VITALS: BP 136/73; PULSE 70; TEMP 97.9
--- NOTE | 2020-06-30 13:09 | NUR ---
Placed Copy of DPOA on chart with labels, gave client 4 copies. NF>
[2020-06-30 16:31] LABS: PROCALCITONIN 0.16 ng/mL (0.00-0.09)
[2020-06-30 17:39] VITALS: BP 155/66; PULSE 84; TEMP 98.4
--- NOTE | 2020-06-30 17:49 | NUR ---
Report received from SUSHIL Bates this afternoon. Pt has requested PRN pain and nausea meds often over shift. Disucssed need to try and alternate between zofran and phenergan per pharmacist request. PRN IV pain meds given often, pain is at times 9/10 or 7/10 at the lowest. Up to bathroom, taking PO well, states she knows her limitations with food and is able to order independently what works best for her. Denies other needs, will give bedside shift report to nightshift nurse who will resuem care.
--- NOTE | 2020-06-30 18:34 | NUR ---
Called BRANDIE Green with [facility] regarding pt insulin needs over shift, she will look into giving her some coverage above the sliding scale.
[2020-06-30 18:48] VITALS: BP 145/62; PULSE 73; TEMP 98.5
[2020-06-30 23:00] VITALS: BP 135/56; PULSE 76; TEMP 98.2
--- NOTE | 2020-06-30 23:51 | NUR ---
Resting quietly, no c/o at this time, call garrido w/i reach, respirations even & unlabored, skin warm and dry, call garrido w/i reach.
[2020-07-01 04:03] VITALS: BP 150/78; PULSE 76; TEMP 98.4
--- NOTE | 2020-07-01 07:00 | NUR ---
Report with SUSHIL Nicole. Pt resting in bed, reports pain to right abd starting to decrease following recent administration of medication. No further needs reported. Call light in reach.
[2020-07-01 08:03] VITALS: BP 120/48; PULSE 79; TEMP 98.2
--- NOTE | 2020-07-01 08:30 | NUR ---
Assessment complete. Pt resting in bed, A&O x 3, reports pain to right abd 7 out of 10, starting to increase again. Saline lock IV to right forearm without s/s of complications. O2 administered via NC at 5 L/min. Physical assessment otherwise unremarkable. No further needs reported. Call light in reach.
--- NOTE | 2020-07-01 10:00 | NUR ---
Pt calls to ask for another dose of IV pain medication. Pt informed it is too early to administer that form of medication but oral pain medication now ordered and is administered per orders. Pt does continue to request IV medication when it is time.
[2020-07-01 10:43] LABS: BASO % 0.1 % (0.0-2.0); EOS % 0.3 % (0-4.0); GRAN # 7.1 (1.4-6.5); GRAN % 77.7 % (42.2-75.2); LYMPH # 1.5 (1.2-3.4); LYMPH % 15.9 % (20.0-51.0); MEAN CELL VOLUME 89 fl (80.0-100.0); MEAN CORPUSCULAR HGB CONC 32 g/dl (33.0-37.0); MEAN PLATELET VOLUME 9.9 fl (7.4-10.4); MONO # 0.5 (0.1-0.6); MONO % 4.9 % (1.7-9.3); PLATELET COUNT 123 K/mm3 (130-400); RED BLOOD COUNT 3.42 M/mm3 (4.10-5.30); REDCELL DISTRIBUTION WIDTH-CV 14.6 % (11.5-14.5)
[2020-07-01 10:55] LABS: HEMATOCRIT 30.4 % (37.0-47.0); HEMOGLOBIN 9.7 g/dl (12.5-16.0); MEAN CORPUSCULAR HEMOGLOBIN 28 pg (27.0-31.0)
[2020-07-01 10:57] LABS: BILIRUBIN,TOTAL 0.2 mg/dL (0.0-1.0); CALCIUM 9.2 mg/dL (8.4-10.2); CREATININE, serum 0.66 (0.52-1.25); TOTAL PROTEIN 7.1 gm/dL (6.4-8.2)
--- NOTE | 2020-07-01 12:08 | NUR ---
First visit from the equipment technician. No needs right now.
[2020-07-01 12:37] VITALS: BP 113/59; PULSE 71; TEMP 98.2
--- NOTE | 2020-07-01 13:41 | NUR ---
Driller Helper attended clinical rounds with the team and per Pulmonology, discharge on Trilogy may be recommended. Patient receives her home oxygen through [facility] in [place]. DELANO contacted Madhu at [facility] who requested records be sent over. Madhu advised if patient qualifies for Trilogy, he will fax over a Trilogy order to be signed. DELANO faxed clinical updates to [facility] fax#[phone]. DELANO then contacted Sully at [facility] who confirmed they are currently providing services for patient. DELANO faxed clinical updates to Sully at [facility] who advised they will continue to provide services for patient upon discharge.
[2020-07-01 15:42] VITALS: BP 120/90; PULSE 88; TEMP 98.6
--- NOTE | 2020-07-01 16:08 | NUR ---
Pt feeling hot and clammy. Blood sugar assessed to be 404. BRANDIE Roth notified.
--- NOTE | 2020-07-01 18:45 | NUR ---
Report with SUSHIL Nicole. Pt asking about next dose of oral pain medication. No further needs reported. Call light in reach.
[2020-07-01 19:13] VITALS: BP 118/45; PULSE 75; TEMP 98.6
--- NOTE | 2020-07-01 19:29 | NUR ---
Patient continues with pain managment as ordered, no s/s of hypo/hyper glycmia, noted insulin adjustments, nausea managment continues as ordered, awake, alert, oriented, appears comfortable laying in bed playing on tablet, call garrido w/i reach, O2@4L per NC in use per baseline, good appetite, ambulates w/o difficulty to bathroom, Will continue to monior.
[2020-07-01 23:38] VITALS: BP 118/48; PULSE 73; TEMP 98.1
[2020-07-02] VITALS (7 sets, daily range): BP systolic 112–154; BP diastolic 48–67; PULSE 70–80; TEMP 97.8–98.8
[2020-07-02 05:02] LABS: COLLECTION METHOD CLEAN CATCH
[2020-07-02 05:12] LABS: PH 5 (5-8); URINE APPEARANCE Hazy; URINE BACTERIA Rare /hpf; URINE BILIRUBIN Negative (NEGATIVE); URINE BLOOD Negative (NEGATIVE); URINE COLOR Yellow; URINE GLUCOSE 2+ (NEGATIVE); URINE KETONE Negative (NEGATIVE); URINE LEUKOCYTE ESTERASE Trace (NEGATIVE); URINE NITRATE Negative (NEGATIVE); URINE PROTEIN(semi-quant) Negative (NEGATIVE); URINE UROBILINOGEN Negative (NEGATIVE)
--- NOTE | 2020-07-02 05:41 | NUR ---
UTI positive, new order for Macrobid, call placed to Norma DIEGO- aware- has spoken to patient and pharmacist.
[2020-07-02 08:30] LABS: BASO % 0.4 % (0.0-2.0); EOS # 0.1 (0.0-0.7); EOS % 0.7 % (0-4.0); GRAN # 5.9 (1.4-6.5); GRAN % 70.7 % (42.2-75.2); LYMPH # 1.9 (1.2-3.4); LYMPH % 22.7 % (20.0-51.0); MEAN CELL VOLUME 88 fl (80.0-100.0); MEAN CORPUSCULAR HGB CONC 32 g/dl (33.0-37.0); MEAN PLATELET VOLUME 9.9 fl (7.4-10.4); MONO # 0.4 (0.1-0.6); MONO % 4.3 % (1.7-9.3); PLATELET COUNT 124 K/mm3 (130-400); RED BLOOD COUNT 3.56 M/mm3 (4.10-5.30); REDCELL DISTRIBUTION WIDTH-CV 14.5 % (11.5-14.5)
[2020-07-02 08:32] LABS: HEMATOCRIT 31.3 % (37.0-47.0); HEMOGLOBIN 9.9 g/dl (12.5-16.0); MEAN CORPUSCULAR HEMOGLOBIN 28 pg (27.0-31.0)
[2020-07-02 08:46] LABS: BILIRUBIN,TOTAL 0.3 mg/dL (0.0-1.0); CREATININE, serum 0.65 (0.52-1.25); TOTAL PROTEIN 7.2 gm/dL (6.4-8.2)
[2020-07-02 12:42] LABS: ARTERIAL BLD GAS O2 SATURATION 96.9 % (92-100); ARTERIAL BLD GAS TCO2 CT 39.3; ARTERIAL BLOOD GAS BASE EXCESS 9.2 (-2-2); ARTERIAL BLOOD GAS HCO3 37.1 meq/L (22-26); ARTERIAL BLOOD GAS PO2 95.7 mmHg (80-100); ARTERIAL BLOOD GAS pH 7.34 (7.35-7.45)
[2020-07-02 12:43] LABS: ARTERIAL BLOOD GAS PCO2 71.1 mmHg (35-45)
--- NOTE | 2020-07-02 15:22 | NUR ---
Supervisor Correspondence Section received a blank trilogy order from [facility] and received assistance in completing it from RT Alisa from [facility]. DELANO contacted Dr. Simons's office and faxed it over to obtain signature. SW is awaiting signed order. SW also met with patient to review discharge plan. Patient states she still plans to return home with [facility]. Discharge Plan: Home with [facility].
--- NOTE | 2020-07-02 18:30 | NUR ---
End of shift. Pt pleasant and cooperative. Makes wants and needs to known to staff.
[2020-07-03 03:51] VITALS: BP 147/69; PULSE 68; TEMP 98
[2020-07-03 05:30] LABS: ARTERIAL BLD GAS O2 SATURATION 97.3 % (92-100); ARTERIAL BLD GAS TCO2 CT 36.4; ARTERIAL BLOOD GAS BASE EXCESS 6.4 (-2-2); ARTERIAL BLOOD GAS HCO3 34.3 meq/L (22-26); ARTERIAL BLOOD GAS PO2 101.7 mmHg (80-100); ARTERIAL BLOOD GAS pH 7.32 (7.35-7.45)
[2020-07-03 05:31] LABS: ARTERIAL BLOOD GAS PCO2 67.6 mmHg (35-45)
--- NOTE | 2020-07-03 06:27 | NUR ---
PT HAD UNEVENTFUL NIGHT. A/0X4, VSS, C/O ABDOMEN PAIN AT A 6/10. VSS. 02 4L CPAP, WORE THROUGH OUT MAJORITY OF THE NIGHT. PATIENT C/O TENDER DISCOMFORT TO PERINEUM AREA, UNDER SKIN FOLDS. UPON ASSESMENT UNDER ABDOMEN, SKIN FOLDS SKIN PRESENTED SLIGHTLY REDDENED, DRY, NO APPARENT SKIN BREAK DOWN. UNDER SKIN FOLDS WAS CLEANED AND PATTED DRY. PT EXPRESSES NO ADDITONAL NEEDS AT THIS TIME. CALL LIGHT WITHIN REACH.
[2020-07-03 06:51] LABS: BASO % 0.1 % (0.0-2.0); EOS % 0.1 % (0-4.0); GRAN # 8.5 (1.4-6.5); GRAN % 84.6 % (42.2-75.2); HEMOGLOBIN 10.1 g/dl (12.5-16.0); LYMPH # 1.1 (1.2-3.4); LYMPH % 10.7 % (20.0-51.0); MEAN CELL VOLUME 88 fl (80.0-100.0); MEAN CORPUSCULAR HEMOGLOBIN 28 pg (27.0-31.0); MEAN CORPUSCULAR HGB CONC 32 g/dl (33.0-37.0); MONO # 0.3 (0.1-0.6); MONO % 3.2 % (1.7-9.3); PLATELET COUNT 132 K/mm3 (130-400); RED BLOOD COUNT 3.62 M/mm3 (4.10-5.30); REDCELL DISTRIBUTION WIDTH-CV 14.2 % (11.5-14.5)
--- NOTE | 2020-07-03 06:55 | NUR ---
Report with SUSHIL Soria and SUSHIL Shearer. Pt resting in bed with eyes closed, awakens briefly while nurses in room, denies needs. O2 via NC at 4 L/min. Call light in reach.
[2020-07-03 07:02] LABS: HEMATOCRIT 31.8 % (37.0-47.0)
[2020-07-03 07:05] LABS: CALCIUM 9.2 mg/dL (8.4-10.2); CREATININE, serum 0.64 (0.52-1.25); POTASSIUM 4.3 mmol/L (3.4-5.0)
[2020-07-03 07:25] VITALS: BP 123/56; PULSE 65; TEMP 98.1
--- NOTE | 2020-07-03 09:00 | NUR ---
Assessment complete. Pt sitting up in bed, A&O x 4. Edema to bilat feet, non-pitting. O2 at 4 L/min via NC. Pt reports pain currently tolerable. Physical assessment otherwise unremarkable. Call light in reach.
[2020-07-03 11:56] VITALS: BP 128/64; PULSE 70; TEMP 98.1
--- NOTE | 2020-07-03 14:22 | NUR ---
Lap Checker obtained signature from Dr. Simons on order for Trilogy. DELANO faxed order for Trilogy and updated progress notes/labs to Madhu at [facility]. Madhu contacted DELANO to notify her that the Trilogy was approved and should arrive to their office tomorrow morning. DELANO will coordinate with Madhu tomorrow on arranging for Trilogy set up. Discharge Plan: Home with [facility]
[2020-07-03 16:14] VITALS: BP 130/61; PULSE 72; TEMP 98.5
--- NOTE | 2020-07-03 17:15 | NUR ---
Pt sitting up in bed finishing dinner, reports pain has increased back to 8 out of 10 in abd. PRN pain medication administered per orders and request. No further needs reported. Call light in reach.
--- NOTE | 2020-07-03 19:00 | NUR ---
Report with SUSHIL Soria and SUSHIL Shearer.
[2020-07-03 19:52] VITALS: BP 143/67; PULSE 68; TEMP 97.8
[2020-07-03 23:13] VITALS: BP 145/53; PULSE 65; TEMP 98.4
[2020-07-04 04:18] VITALS: BP 131/67; PULSE 59; TEMP 97.9
--- NOTE | 2020-07-04 05:18 | NUR ---
PT LAYING IN BED. CURRENTLY REPORTS NO PAIN. A/0X4. VSS. O2 TRILOGY 4L. PT KEPT TRILOGY ON FOR MOST OF THE NIGHT. URINE OUTPUT ADEQUATE. ELEVATED GLUCOSE READINGS ALL SHIFT. INSULIN ADMINISTERED 2000,0000,0400 HOURS TONIGHT. PT REMINDED TO USE CALL LIGHT TO TRANSFER. CALL LIGHT WITHIN REACH.
[2020-07-04 06:40] LABS: BASO % 0.2 % (0.0-2.0); EOS % 0.3 % (0-4.0); GRAN # 9.1 (1.4-6.5); GRAN % 82.4 % (42.2-75.2); HEMATOCRIT 31.3 % (37.0-47.0); HEMOGLOBIN 10.2 g/dl (12.5-16.0); LYMPH # 1.3 (1.2-3.4); LYMPH % 11.3 % (20.0-51.0); MEAN CELL VOLUME 87 fl (80.0-100.0); MEAN CORPUSCULAR HEMOGLOBIN 29 pg (27.0-31.0); MEAN CORPUSCULAR HGB CONC 33 g/dl (33.0-37.0); MEAN PLATELET VOLUME 10.2 fl (7.4-10.4); MONO # 0.5 (0.1-0.6); MONO % 4.4 % (1.7-9.3); PLATELET COUNT 134 K/mm3 (130-400); RED BLOOD COUNT 3.58 M/mm3 (4.10-5.30); REDCELL DISTRIBUTION WIDTH-CV 14.2 % (11.5-14.5)
[2020-07-04 06:45] LABS: CALCIUM 9.2 mg/dL (8.4-10.2); CREATININE, serum 0.68 (0.52-1.25); POTASSIUM 4.1 mmol/L (3.4-5.0)
[2020-07-04 08:06] VITALS: BP 139/63; PULSE 61; TEMP 97.6
--- NOTE | 2020-07-04 09:28 | NUR ---
Assessment completed, alert/oriented, vital signs stable, reporting abd pain is improved but is chronic and constant, requested pain meds if availabe, I gave 1 Percocet tablet, she reports constipation/ I gave PRN Miralax as well, BS+ and abd is soft, she is denies any N/V and has eaten a good breakfast, heart RRR, lungs CTA, she is back on her Trillogy now that she is finished eating, denies other needs at [facility]
[2020-07-04] MEDS ORDERED: LEVAQUIN 750MG750 M1 PO (09:59)
[2020-07-04] MEDS ORDERED: MIRALAX PA17 GM/Dose PO (10:00)
[2020-07-04] MEDS ORDERED: COLACE 100100 MG/CAP PO (10:01)
[2020-07-04] MEDS ORDERED: PREDNISONE20 MG PO (10:01)
[2020-07-04] MEDS ORDERED: LEVEMIR FLEX100 U/ML SQ (10:02)
[2020-07-04] MEDS ORDERED: PREDNISONE10 MG PO (10:02)
[2020-07-04] MEDS ORDERED: PERCOCET 325 MG1 TA3 PO (10:03)
[2020-07-04 11:19] VITALS: BP 143/72; PULSE 60; TEMP 97.9
[2020-07-04] MEDS ORDERED: RT ADVAIR 528 DISKUS IH (12:47)
[2020-07-04] MEDS ORDERED: SPIRIVA RE2.5 MCG/Ac IH (12:48)
--- NOTE | 2020-07-04 13:14 | NUR ---
Patient is ready to be discharged today. Siebel Administrator collaborated with Madhu at [facility] who advised the Trilogy was delivered to their office and can be delivered to patient's home this afternoon. SW met with patient who advised she will need help arranging a taxi ride home as her mother can't pick her up today. Patient states she can pay for the taxi. SW arranged for [employer] to merchandise pickup/receiving associate patient at 1400. SW provided time to patient and RN, Willard. DELANO also contacted Madhu at [facility] to provide time. Madhu advised their RT will meet patient at her home shortly after she arrives. DELANO contacted Sully at [facility] and faxed discharge orders. Discharge Plan: Home with [facility] and new Trilogy from [facility].
--- NOTE | 2020-07-04 14:30 | NUR ---
Discharge instructions reviewed with the patient, instructed to follow up with PCP/GI as scheduled, GI will need to make referral for Oncologist, discussed all new medications with the patient and scripts were sent to pharmacy, instructed to monitor blood sugars closely at home/ added Levemir 25unit BID and patient is familiar with operationg insulin pens from the past, instructed she is good to go back to using her insulin pump as before as well, Social work has gotten the patient set up with a [email or web address] machine for at home during sleep/ the supply company is set to meet the patient once she gets home to go over operation of [email or web address], we have also arranged for a taxi cab for the patient to get home, she is denies other questions or concerns and is very appreciative of our care and services, she stated " this is the best hospital I have ever been too", she is ambulatory and I escorted her out the door
== END 2020-07-04 15:13 | disposition home or self-care (01) | DRG 189 ==
LOC: COL.ER 22:00 → MEDICAL 06-30 01:34
PROVIDERS: Internal Medicine Pulmonary Disease; Nurse Practitioner Family; Physician Assistant; Student in an Organized Health Care Education/Training Program; ADMIT Hospitalist
DX: J96.21 Acute and chronic respiratory failure with hypoxia (principal); J44.1 Chronic obstructive pulmonary disease with (acute) exacerbation; I50.30 Unspecified diastolic (congestive) heart failure; F11.20 Opioid dependence, uncomplicated; E11.43 Type 2 diabetes mellitus with diabetic autonomic (poly)neuropathy; K31.84 Gastroparesis; Z20.822 Contact with and (suspected) exposure to COVID-19; D69.6 Thrombocytopenia, unspecified; G40.909 Epilepsy, unspecified, not intractable, without status epilepticus; F43.10 Post-traumatic stress disorder, unspecified; F31.9 Bipolar disorder, unspecified; F41.9 Anxiety disorder, unspecified; K59.00 Constipation, unspecified; E11.40 Type 2 diabetes mellitus with diabetic neuropathy, unspecified; R53.81 Other malaise; I11.0 Hypertensive heart disease with heart failure; E66.01 Morbid (severe) obesity due to excess calories; E11.65 Type 2 diabetes mellitus with hyperglycemia; D50.0 Iron deficiency anemia secondary to blood loss (chronic); Z85.028 Personal history of other malignant neoplasm of stomach; Z98.51 Tubal ligation status; Z90.49 Acquired absence of other specified parts of digestive tract; Z95.818 Presence of other cardiac implants and grafts; Z89.012 Acquired absence of left thumb; Z86.73 Personal history of transient ischemic attack (TIA), and cerebral infarction without residual deficits; Z95.0 Presence of cardiac pacemaker
CPT/HCPCS: 99223-AI; 99233-AI; 99239; C9113; J1170; J1650; J1815; J1940; J1956; J2270; J2405; J2550; J2930; J7030; J7512; Q9967

== ENCOUNTER 2020-07-08 21:06 | Emergency (ER) | payer MEDICARE, MEDICAID ==
[~2020-07-08] VITALS: Ht 154.9 cm; Wt 111.7 kg
[~2020-07-08 21:06] MED LIST changes: +COLACE 100100 MG/CAP PO; +COMPAZINE 5MG TA5 MG PO; +LEVEMIR FLEX100 U/ML SQ; +MIRALAX PA17 GM/Dose PO; +PERCOCET 325 MG1 TA3 PO; +PREDNISONE10 MG PO; +RT ADVAIR 528 DISKUS IH; +SPIRIVA RE2.5 MCG/Ac IH; +ZITHROMAX 250M250 MG PO
[2020-07-08 21:42] VITALS: TEMP 98.2
[2020-07-09 01:54] LABS: PROTHROMBIN TIME 10.9 SECONDS (9.7-12.8)
[2020-07-09 02:08] LABS: ALANINE AMINOTRANSFERASE 36 U/L (4-34); ALBUMIN 4.2 gm/dL (3.5-5.0); ALKALINE PHOSPHATASE 224 U/L (50-136); ANION GAP 7 mmol/L (7-16); AST,SGOT 97 U/L (15-37); BILIRUBIN,TOTAL 0.2 mg/dL (0.0-1.0); BLOOD UREA NITROGEN 17 mg/dL (7-17); CALCIUM 9.1 mg/dL (8.4-10.2); CARBON DIOXIDE 29 mmol/L (22-30); CHLORIDE 103 mmol/L (98-107); CREATININE, serum 0.56 (0.52-1.25); GLUCOSE 118 mg/dL (74-106); LIPASE 59 U/L (23-300); POTASSIUM 4.1 mmol/L (3.4-5.0); SODIUM 139 mmol/L (137-145); TOTAL PROTEIN 7.4 gm/dL (6.4-8.2)
[2020-07-09 02:18] LABS: TROPONIN-I < 0.012 ng/mL (0.000-0.035)
[2020-07-09 02:24] LABS: HEMOGLOBIN 10.8 g/dl (12.5-16.0); MEAN CELL VOLUME 87 fl (80.0-100.0); MEAN CORPUSCULAR HEMOGLOBIN 28 pg (27.0-31.0); MEAN CORPUSCULAR HGB CONC 32 g/dl (33.0-37.0); MEAN PLATELET VOLUME 9.3 fl (7.4-10.4); PLATELET COUNT 131 K/mm3 (130-400); REDCELL DISTRIBUTION WIDTH-CV 14.8 % (11.5-14.5)
[2020-07-09 02:29] LABS: HEMATOCRIT 34.1 % (37.0-47.0)
[2020-07-09 03:18] LABS: HYPOCHROMIA 2+; LYMPHOCYTE 27 % (20.0-51.0); MYELOCYTE 3 % (0-0); NEUTROPHILS 66 % (42.0-75.2); PLATELET ESTIMATE NORMAL (NORMAL)
[2020-07-09 03:19] LABS: ANISOCYTOSIS 1+
[2020-07-09 04:28] VITALS: BP 134/76; PULSE 78
[2020-07-09 07:51] LABS: PATHOLOGY DIFF REVIEW OK +
== END 2020-07-09 04:28 | disposition home or self-care (01) ==
LOC: COL.ER 21:06
PROVIDERS: Emergency Medicine
DX: R10.11 Right upper quadrant pain (principal); R06.02 Shortness of breath; R94.5 Abnormal results of liver function studies; F31.9 Bipolar disorder, unspecified; E78.5 Hyperlipidemia, unspecified; G40.909 Epilepsy, unspecified, not intractable, without status epilepticus; E11.43 Type 2 diabetes mellitus with diabetic autonomic (poly)neuropathy; E11.40 Type 2 diabetes mellitus with diabetic neuropathy, unspecified; E03.9 Hypothyroidism, unspecified; J44.9 Chronic obstructive pulmonary disease, unspecified; I50.9 Heart failure, unspecified; E66.01 Morbid (severe) obesity due to excess calories; K31.84 Gastroparesis; I11.0 Hypertensive heart disease with heart failure; F41.9 Anxiety disorder, unspecified; F43.10 Post-traumatic stress disorder, unspecified; Z87.891 Personal history of nicotine dependence; Z68.42 Body mass index [BMI] 45.0-49.9, adult; Z86.16 Personal history of COVID-19; Z85.028 Personal history of other malignant neoplasm of stomach; Z90.49 Acquired absence of other specified parts of digestive tract; Z90.89 Acquired absence of other organs; Z96.41 Presence of insulin pump (external) (internal); Z88.1 Allergy status to other antibiotic agents; Z88.6 Allergy status to analgesic agent; Z79.4 Long term (current) use of insulin; Z88.8 Allergy status to other drugs, medicaments and biological substances; Z79.890 Hormone replacement therapy; Z79.51 Long term (current) use of inhaled steroids; Z79.899 Other long term (current) drug therapy
CPT/HCPCS: J1170; J2405

== ENCOUNTER 2020-07-12 10:50 | Emergency (ER) | payer MEDICARE, MEDICAID ==
[~2020-07-12] VITALS: Ht 154.9 cm; Wt 111.4 kg
[2020-07-12 10:53] VITALS: TEMP 98.3
[2020-07-12 11:28] LABS: BASO % 0.2 % (0.0-2.0); EOS # 0.1 (0.0-0.7); EOS % 0.7 % (0-4.0); GRAN # 7.3 (1.4-6.5); GRAN % 75.4 % (42.2-75.2); HEMOGLOBIN 10.6 g/dl (12.5-16.0); LYMPH # 1.6 (1.2-3.4); LYMPH % 16.4 % (20.0-51.0); MEAN CELL VOLUME 87 fl (80.0-100.0); MEAN CORPUSCULAR HEMOGLOBIN 28 pg (27.0-31.0); MEAN CORPUSCULAR HGB CONC 32 g/dl (33.0-37.0); MEAN PLATELET VOLUME 9.3 fl (7.4-10.4); MONO # 0.6 (0.1-0.6); MONO % 5.9 % (1.7-9.3); PLATELET COUNT 120 K/mm3 (130-400); RED BLOOD COUNT 3.83 M/mm3 (4.10-5.30); REDCELL DISTRIBUTION WIDTH-CV 14.2 % (11.5-14.5)
[2020-07-12 11:29] LABS: HEMATOCRIT 33.4 % (37.0-47.0)
[2020-07-12 11:31] LABS: PROTHROMBIN TIME 10.9 SECONDS (9.7-12.8)
[2020-07-12 11:37] LABS: ALBUMIN 4.2 gm/dL (3.5-5.0); BILIRUBIN,TOTAL 0.2 mg/dL (0.0-1.0); CREATININE, serum 0.59 (0.52-1.25); TOTAL PROTEIN 7.4 gm/dL (6.4-8.2)
[2020-07-12 11:48] LABS: COLLECTION METHOD CLEAN CATCH
[2020-07-12 11:48] LABS: TROPONIN-I 0.013 ng/mL (0.000-0.035)
[2020-07-12 11:55] LABS: PH 5 (5-8); URINE APPEARANCE Clear; URINE BACTERIA None Seen /hpf; URINE BILIRUBIN Negative (NEGATIVE); URINE BLOOD Negative (NEGATIVE); URINE COLOR Yellow; URINE GLUCOSE 2+ (NEGATIVE); URINE KETONE Negative (NEGATIVE); URINE LEUKOCYTE ESTERASE Trace (NEGATIVE); URINE NITRATE Negative (NEGATIVE); URINE PROTEIN(semi-quant) Negative (NEGATIVE); URINE RBC 0-2 /hpf; URINE UROBILINOGEN Negative (NEGATIVE)
[2020-07-12 14:20] VITALS: BP 132/80; PULSE 82
== END 2020-07-12 14:20 | disposition home or self-care (01) ==
LOC: COL.ER 10:50
PROVIDERS: Physician Assistant
DX: R10.11 Right upper quadrant pain (principal); R06.02 Shortness of breath; E11.21 Type 2 diabetes mellitus with diabetic nephropathy; I50.9 Heart failure, unspecified; I11.0 Hypertensive heart disease with heart failure; E66.01 Morbid (severe) obesity due to excess calories; J44.9 Chronic obstructive pulmonary disease, unspecified; F41.9 Anxiety disorder, unspecified; F31.9 Bipolar disorder, unspecified; F43.10 Post-traumatic stress disorder, unspecified; G40.909 Epilepsy, unspecified, not intractable, without status epilepticus; E03.9 Hypothyroidism, unspecified; E78.5 Hyperlipidemia, unspecified; Z86.16 Personal history of COVID-19; Z90.49 Acquired absence of other specified parts of digestive tract; Z90.89 Acquired absence of other organs; Z96.82 Presence of neurostimulator; Z79.4 Long term (current) use of insulin; Z79.51 Long term (current) use of inhaled steroids; Z79.890 Hormone replacement therapy; Z79.899 Other long term (current) drug therapy
CPT/HCPCS: J1170; J2550

== ENCOUNTER 2020-07-16 22:35 | Emergency (ER) | payer MEDICARE, MEDICAID ==
[~2020-07-16] VITALS: Ht 154.9 cm; Wt 106.8 kg
[2020-07-17 02:05] VITALS: BP 149/65; PULSE 84; TEMP 97.6
== END 2020-07-17 02:05 | disposition home or self-care (01) ==
LOC: COL.ER 22:35
DX: R10.11 Right upper quadrant pain (principal); R06.02 Shortness of breath; E11.9 Type 2 diabetes mellitus without complications; J44.9 Chronic obstructive pulmonary disease, unspecified; Z85.028 Personal history of other malignant neoplasm of stomach; Z90.89 Acquired absence of other organs; Z90.49 Acquired absence of other specified parts of digestive tract; Z86.16 Personal history of COVID-19; Z96.82 Presence of neurostimulator; Z96.41 Presence of insulin pump (external) (internal); Z79.4 Long term (current) use of insulin; Z79.51 Long term (current) use of inhaled steroids
CPT/HCPCS: J1630

== ENCOUNTER 2020-07-27 13:23 | Emergency (ER) | payer MEDICARE, MEDICAID ==
[~2020-07-27] VITALS: Ht 154.9 cm; Wt 112.7 kg
[2020-07-27 15:32] LABS: HEMOGLOBIN 10.5 g/dl (12.5-16.0); MEAN CELL VOLUME 87 fl (80.0-100.0); MEAN CORPUSCULAR HEMOGLOBIN 28 pg (27.0-31.0); MEAN CORPUSCULAR HGB CONC 33 g/dl (33.0-37.0); MEAN PLATELET VOLUME 9.7 fl (7.4-10.4); PLATELET COUNT 140 K/mm3 (130-400); RED BLOOD COUNT 3.73 M/mm3 (4.10-5.30); REDCELL DISTRIBUTION WIDTH-CV 14.2 % (11.5-14.5)
[2020-07-27 15:35] LABS: HEMATOCRIT 32.3 % (37.0-47.0)
[2020-07-27 15:36] LABS: COLLECTION METHOD CLEAN CATCH
[2020-07-27 15:41] LABS: PH 5 (5-8); SQUAMOUS EPITHELIAL 0-2 /hpf; URINE APPEARANCE Clear; URINE BACTERIA None Seen /hpf; URINE BILIRUBIN Negative (NEGATIVE); URINE BLOOD Negative (NEGATIVE); URINE COLOR Straw; URINE GLUCOSE 3+ (NEGATIVE); URINE KETONE Negative (NEGATIVE); URINE LEUKOCYTE ESTERASE Negative (NEGATIVE); URINE NITRATE Negative (NEGATIVE); URINE PROTEIN(semi-quant) Negative (NEGATIVE); URINE RBC 0-2 /hpf; URINE UROBILINOGEN Negative (NEGATIVE)
[2020-07-27 15:46] LABS: ALANINE AMINOTRANSFERASE 28 U/L (4-34); ALBUMIN 4.4 gm/dL (3.5-5.0); ALKALINE PHOSPHATASE 322 U/L (50-136); ANION GAP 6 mmol/L (7-16); AST,SGOT 51 U/L (15-37); BILIRUBIN,TOTAL 0.4 mg/dL (0.0-1.0); BLOOD UREA NITROGEN 12 mg/dL (7-17); C-REACTIVE PROTEIN 2.7 mg/dL (0.0-0.9); CALCIUM 9.3 mg/dL (8.4-10.2); CARBON DIOXIDE 38 mmol/L (22-30); CHLORIDE 93 mmol/L (98-107); CREATININE, serum 0.56 (0.52-1.25); GLUCOSE 280 mg/dL (74-106); POTASSIUM 4.2 mmol/L (3.4-5.0); SODIUM 137 mmol/L (137-145); TOTAL PROTEIN 7.9 gm/dL (6.4-8.2)
[2020-07-27 15:50] LABS: BAND 1 % (0-10); HYPOCHROMIA 2+; LYMPHOCYTE 21 % (20.0-51.0); NEUTROPHILS 74 % (42.0-75.2); PLATELET ESTIMATE NORMAL (NORMAL)
[2020-07-27 16:08] LABS: TROPONIN-I < 0.012 ng/mL (0.000-0.035)
[2020-07-27 17:02] VITALS: BP 130/80; PULSE 70; TEMP 98.6
== END 2020-07-27 17:10 | disposition home or self-care (01) ==
LOC: COL.ER 13:23
PROVIDERS: Nurse Practitioner
DX: R22.43 Localized swelling, mass and lump, lower limb, bilateral (principal); G89.29 Other chronic pain; M54.5 Low back pain; R10.10 Upper abdominal pain, unspecified; I11.0 Hypertensive heart disease with heart failure; I50.9 Heart failure, unspecified; E78.5 Hyperlipidemia, unspecified; E11.9 Type 2 diabetes mellitus without complications; E03.9 Hypothyroidism, unspecified; F41.9 Anxiety disorder, unspecified; F32.9 Major depressive disorder, single episode, unspecified; F43.10 Post-traumatic stress disorder, unspecified; R07.89 Other chest pain; J44.9 Chronic obstructive pulmonary disease, unspecified; Z79.891 Long term (current) use of opiate analgesic; Z79.4 Long term (current) use of insulin; Z79.890 Hormone replacement therapy; Z79.899 Other long term (current) drug therapy; Z79.82 Long term (current) use of aspirin; Z79.52 Long term (current) use of systemic steroids
CPT/HCPCS: J1940

== ENCOUNTER 2020-08-02 18:04 | Emergency (ER) | payer MEDICARE, MEDICAID ==
[~2020-08-02] VITALS: Ht 154.9 cm; Wt 114.1 kg
[2020-08-02 20:07] LABS: ALANINE AMINOTRANSFERASE 23 U/L (4-34); ALBUMIN 4.3 gm/dL (3.5-5.0); ALKALINE PHOSPHATASE 274 U/L (50-136); ANION GAP 5 mmol/L (7-16); AST,SGOT 56 U/L (15-37); BILIRUBIN,TOTAL 0.4 mg/dL (0.0-1.0); BLOOD UREA NITROGEN 16 mg/dL (7-17); CALCIUM 9.6 mg/dL (8.4-10.2); CARBON DIOXIDE 31 mmol/L (22-30); CHLORIDE 100 mmol/L (98-107); CREATININE, serum 0.58 (0.52-1.25); GLUCOSE 234 mg/dL (74-106); POTASSIUM 4.5 mmol/L (3.4-5.0); SODIUM 136 mmol/L (137-145); TOTAL PROTEIN 7.6 gm/dL (6.4-8.2)
[2020-08-02 20:21] LABS: C-REACTIVE PROTEIN 1.7 mg/dL (0.0-0.9); LIPASE 53 U/L (23-300)
[2020-08-02 20:30] LABS: TROPONIN-I < 0.012 ng/mL (0.000-0.035)
[2020-08-02 21:15] LABS: HEMOGLOBIN 10.7 g/dl (12.5-16.0); MEAN CELL VOLUME 88 fl (80.0-100.0); MEAN CORPUSCULAR HEMOGLOBIN 28 pg (27.0-31.0); MEAN CORPUSCULAR HGB CONC 32 g/dl (33.0-37.0); MEAN PLATELET VOLUME 9.3 fl (7.4-10.4); PLATELET COUNT 141 K/mm3 (130-400); RED BLOOD COUNT 3.77 M/mm3 (4.10-5.30); REDCELL DISTRIBUTION WIDTH-CV 14.3 % (11.5-14.5)
[2020-08-02 21:17] LABS: HEMATOCRIT 33.3 % (37.0-47.0)
[2020-08-02] MEDS ORDERED: ZITHROMAX 250M250 MG PO (21:36)
[2020-08-02 21:42] LABS: EOSINOPHIL 3 % (0-4); LYMPHOCYTE 15 % (20.0-51.0); NEUTROPHILS 77 % (42.0-75.2)
[2020-08-02 21:43] LABS: HYPOCHROMIA 1+; PLATELET ESTIMATE NORMAL (NORMAL)
[2020-08-02 22:04] VITALS: BP 152/80; PULSE 86; TEMP 98.6
== END 2020-08-02 22:06 | disposition home or self-care (01) ==
LOC: COL.ER 18:04
PROVIDERS: Family Medicine; Nurse Practitioner Primary Care
DX: J40 Bronchitis, not specified as acute or chronic (principal); E10.9 Type 1 diabetes mellitus without complications; I10 Essential (primary) hypertension; J44.9 Chronic obstructive pulmonary disease, unspecified; G40.909 Epilepsy, unspecified, not intractable, without status epilepticus; F31.9 Bipolar disorder, unspecified; F41.9 Anxiety disorder, unspecified; Z86.73 Personal history of transient ischemic attack (TIA), and cerebral infarction without residual deficits; Z20.822 Contact with and (suspected) exposure to COVID-19; Z86.16 Personal history of COVID-19; Z79.52 Long term (current) use of systemic steroids; Z79.4 Long term (current) use of insulin; Z79.899 Other long term (current) drug therapy
CPT/HCPCS: J0780; J7030

== ENCOUNTER 2020-08-18 16:01 | Emergency (ER) | payer MEDICARE, MEDICAID ==
[~2020-08-18] VITALS: Ht 154.9 cm; Wt 106.8 kg
[2020-08-18 16:59] LABS: COLLECTION METHOD CLEAN CATCH
[2020-08-18 17:08] LABS: PH 6 (5-8); URINE APPEARANCE Hazy; URINE BACTERIA None Seen /hpf; URINE BILIRUBIN Negative (NEGATIVE); URINE BLOOD Negative (NEGATIVE); URINE COLOR Yellow; URINE GLUCOSE 2+ (NEGATIVE); URINE KETONE Negative (NEGATIVE); URINE LEUKOCYTE ESTERASE Negative (NEGATIVE); URINE NITRATE Negative (NEGATIVE); URINE PROTEIN(semi-quant) Negative (NEGATIVE); URINE RBC 0-2 /hpf
[2020-08-18 17:12] LABS: BASO % 0.3 % (0.0-2.0); EOS # 0.1 (0.0-0.7); EOS % 0.9 % (0-4.0); GRAN % 78.1 % (42.2-75.2); HEMOGLOBIN 10.7 g/dl (12.5-16.0); LYMPH # 1.8 (1.2-3.4); LYMPH % 15.8 % (20.0-51.0); MEAN CELL VOLUME 86 fl (80.0-100.0); MEAN CORPUSCULAR HEMOGLOBIN 28 pg (27.0-31.0); MEAN CORPUSCULAR HGB CONC 33 g/dl (33.0-37.0); MEAN PLATELET VOLUME 9.6 fl (7.4-10.4); MONO # 0.5 (0.1-0.6); PLATELET COUNT 135 K/mm3 (130-400); RED BLOOD COUNT 3.79 M/mm3 (4.10-5.30); REDCELL DISTRIBUTION WIDTH-CV 14.1 % (11.5-14.5)
[2020-08-18 17:19] LABS: INR 1.1 (0.8-3.0); PROTHROMBIN TIME 11.9 SECONDS (9.7-12.8)
[2020-08-18 17:20] LABS: HEMATOCRIT 32.6 % (37.0-47.0)
[2020-08-18 17:22] LABS: TRICYCLIC ANTIDEPRESS URINE NEGATIVE
[2020-08-18 17:24] LABS: ALANINE AMINOTRANSFERASE 26 U/L (4-34); ALBUMIN 4.4 gm/dL (3.5-5.0); ALKALINE PHOSPHATASE 268 U/L (50-136); ANION GAP 9 mmol/L (7-16); AST,SGOT 57 U/L (15-37); BILIRUBIN,TOTAL 0.4 mg/dL (0.0-1.0); BLOOD UREA NITROGEN 19 mg/dL (7-17); CALCIUM 9.4 mg/dL (8.4-10.2); CARBON DIOXIDE 27 mmol/L (22-30); CHLORIDE 99 mmol/L (98-107); CREATININE, serum 0.75 (0.52-1.25); GLUCOSE 273 mg/dL (74-106); LIPASE 44 U/L (23-300); POTASSIUM 4.5 mmol/L (3.4-5.0); SODIUM 135 mmol/L (137-145); TOTAL PROTEIN 7.6 gm/dL (6.4-8.2)
[2020-08-18 17:25] LABS: ACETAMINOPHEN < 10 ug/mL (10-30); ALCOHOL(ethanol),MEDICAL < 10 mg/dL; SALICYLATE < 1.0 mg/dL
[2020-08-18 17:44] LABS: TROPONIN-I < 0.012 ng/mL (0.000-0.035)
[2020-08-19 02:30] VITALS: BP 137/78; PULSE 74; TEMP 97.9
== END 2020-08-19 02:30 ==
LOC: COL.ER 16:01
PROVIDERS: Emergency Medicine
DX: F32.9 Major depressive disorder, single episode, unspecified (principal); E10.9 Type 1 diabetes mellitus without complications; I10 Essential (primary) hypertension; G40.909 Epilepsy, unspecified, not intractable, without status epilepticus; J44.9 Chronic obstructive pulmonary disease, unspecified; G47.33 Obstructive sleep apnea (adult) (pediatric); I25.10 Atherosclerotic heart disease of native coronary artery without angina pectoris; Z91.19 Patient's noncompliance with other medical treatment and regimen; Z04.6 Encounter for general psychiatric examination, requested by authority; Z20.822 Contact with and (suspected) exposure to COVID-19; Z79.51 Long term (current) use of inhaled steroids; Z79.899 Other long term (current) drug therapy

== ENCOUNTER 2020-08-28 19:44 | Emergency (ER) | payer MEDICARE, MEDICAID ==
[~2020-08-28] VITALS: Ht 154.9 cm; Wt 109.1 kg
[2020-08-28 20:51] LABS: BASO % 0.3 % (0.0-2.0); EOS # 0.1 (0.0-0.7); EOS % 1.2 % (0-4.0); GRAN % 75.8 % (42.2-75.2); HEMOGLOBIN 10.9 g/dl (12.5-16.0); LYMPH % 17.2 % (20.0-51.0); MEAN CELL VOLUME 88 fl (80.0-100.0); MEAN CORPUSCULAR HEMOGLOBIN 28 pg (27.0-31.0); MEAN CORPUSCULAR HGB CONC 32 g/dl (33.0-37.0); MEAN PLATELET VOLUME 9.7 fl (7.4-10.4); MONO # 0.5 (0.1-0.6); MONO % 4.1 % (1.7-9.3); PLATELET COUNT 144 K/mm3 (130-400); RED BLOOD COUNT 3.84 M/mm3 (4.10-5.30); REDCELL DISTRIBUTION WIDTH-CV 14.4 % (11.5-14.5)
[2020-08-28 20:54] LABS: HEMATOCRIT 33.6 % (37.0-47.0)
[2020-08-28 21:02] LABS: ALANINE AMINOTRANSFERASE 43 U/L (4-34); ALBUMIN 4.3 gm/dL (3.5-5.0); ALKALINE PHOSPHATASE 271 U/L (50-136); ANION GAP 7 mmol/L (7-16); AST,SGOT 58 U/L (15-37); BILIRUBIN,TOTAL 0.3 mg/dL (0.0-1.0); BLOOD UREA NITROGEN 15 mg/dL (7-17); CALCIUM 9.4 mg/dL (8.4-10.2); CARBON DIOXIDE 33 mmol/L (22-30); CHLORIDE 99 mmol/L (98-107); CREATININE, serum 0.71 (0.52-1.25); GLUCOSE 184 mg/dL (74-106); POTASSIUM 4.1 mmol/L (3.4-5.0); SODIUM 140 mmol/L (137-145); TOTAL PROTEIN 7.8 gm/dL (6.4-8.2)
[2020-08-28 21:15] LABS: TROPONIN-I < 0.012 ng/mL (0.000-0.035)
[2020-08-28 23:45] VITALS: BP 148/72; PULSE 81; TEMP 98.2
== END 2020-08-28 23:45 | disposition home or self-care (01) ==
LOC: COL.ER 19:44
PROVIDERS: Personal Emergency Response Attendant
DX: R07.9 Chest pain, unspecified (principal); R79.1 Abnormal coagulation profile; G40.909 Epilepsy, unspecified, not intractable, without status epilepticus; E11.43 Type 2 diabetes mellitus with diabetic autonomic (poly)neuropathy; K31.84 Gastroparesis; I10 Essential (primary) hypertension; J44.9 Chronic obstructive pulmonary disease, unspecified; Z86.16 Personal history of COVID-19; Z88.8 Allergy status to other drugs, medicaments and biological substances; Z79.52 Long term (current) use of systemic steroids; Z79.899 Other long term (current) drug therapy; Z96.41 Presence of insulin pump (external) (internal)
CPT/HCPCS: J1940; J2270; J2405; J3010; Q9967

== ENCOUNTER 2020-08-31 01:08 | Emergency (ER) | payer MEDICARE, MEDICAID ==
[~2020-08-31] VITALS: Ht 154.9 cm; Wt 110.5 kg
[2020-08-31 03:06] LABS: BASO % 0.2 % (0.0-2.0); EOS # 0.1 (0.0-0.7); EOS % 1.2 % (0-4.0); GRAN % 72.2 % (42.2-75.2); HEMOGLOBIN 10.3 g/dl (12.5-16.0); LYMPH % 20.6 % (20.0-51.0); MEAN CELL VOLUME 88 fl (80.0-100.0); MEAN CORPUSCULAR HEMOGLOBIN 28 pg (27.0-31.0); MEAN CORPUSCULAR HGB CONC 32 g/dl (33.0-37.0); MEAN PLATELET VOLUME 9.7 fl (7.4-10.4); MONO # 0.5 (0.1-0.6); MONO % 4.8 % (1.7-9.3); PLATELET COUNT 128 K/mm3 (130-400); RED BLOOD COUNT 3.69 M/mm3 (4.10-5.30); REDCELL DISTRIBUTION WIDTH-CV 14.2 % (11.5-14.5)
[2020-08-31 03:07] LABS: HEMATOCRIT 32.4 % (37.0-47.0)
[2020-08-31 03:17] LABS: ALANINE AMINOTRANSFERASE 37 U/L (4-34); ALBUMIN 4.3 gm/dL (3.5-5.0); ALKALINE PHOSPHATASE 312 U/L (50-136); ANION GAP 5 mmol/L (7-16); AST,SGOT 62 U/L (15-37); BILIRUBIN,TOTAL 0.3 mg/dL (0.0-1.0); BLOOD UREA NITROGEN 18 mg/dL (7-17); CALCIUM 9.3 mg/dL (8.4-10.2); CARBON DIOXIDE 31 mmol/L (22-30); CHLORIDE 103 mmol/L (98-107); CREATINE KINASE 36 U/L (30-135); CREATININE, serum 0.71 (0.52-1.25); GLUCOSE 154 mg/dL (74-106); LIPASE 70 U/L (23-300); POTASSIUM 4.2 mmol/L (3.4-5.0); SODIUM 139 mmol/L (137-145); TOTAL PROTEIN 7.6 gm/dL (6.4-8.2)
[2020-08-31 03:21] LABS: INR 1.1 (0.8-3.0)
[2020-08-31 03:37] LABS: TROPONIN-I < 0.012 ng/mL (0.000-0.035)
[2020-08-31 04:00] VITALS: TEMP 98
[2020-08-31 05:00] VITALS: BP 126/59; PULSE 81
== END 2020-08-31 05:05 | disposition home or self-care (01) ==
LOC: COL.ER 01:08
PROVIDERS: Emergency Medicine
DX: R07.9 Chest pain, unspecified (principal); J44.9 Chronic obstructive pulmonary disease, unspecified; I11.0 Hypertensive heart disease with heart failure; I50.9 Heart failure, unspecified; E78.5 Hyperlipidemia, unspecified; E11.43 Type 2 diabetes mellitus with diabetic autonomic (poly)neuropathy; K31.84 Gastroparesis; Z96.41 Presence of insulin pump (external) (internal); E11.40 Type 2 diabetes mellitus with diabetic neuropathy, unspecified; F41.9 Anxiety disorder, unspecified; G40.909 Epilepsy, unspecified, not intractable, without status epilepticus; E03.9 Hypothyroidism, unspecified; F31.9 Bipolar disorder, unspecified; E66.01 Morbid (severe) obesity due to excess calories; F43.10 Post-traumatic stress disorder, unspecified; Z79.4 Long term (current) use of insulin; Z79.899 Other long term (current) drug therapy; Z79.890 Hormone replacement therapy; Z79.51 Long term (current) use of inhaled steroids
CPT/HCPCS: J1170; J2405; J2550

== ENCOUNTER 2020-09-02 02:05 | Emergency (ER) | payer MEDICARE, MEDICAID ==
[~2020-09-02] VITALS: Ht 154.9 cm; Wt 110.5 kg
[2020-09-02 02:07] VITALS: TEMP 98.5
[2020-09-02 03:03] LABS: BASO % 0.3 % (0.0-2.0); EOS # 0.1 (0.0-0.7); EOS % 1.2 % (0-4.0); GRAN # 8.4 (1.4-6.5); GRAN % 74.9 % (42.2-75.2); HEMOGLOBIN 10.4 g/dl (12.5-16.0); MEAN CELL VOLUME 89 fl (80.0-100.0); MEAN CORPUSCULAR HEMOGLOBIN 28 pg (27.0-31.0); MEAN CORPUSCULAR HGB CONC 32 g/dl (33.0-37.0); MEAN PLATELET VOLUME 11.4 fl (7.4-10.4); MONO # 0.5 (0.1-0.6); MONO % 4.4 % (1.7-9.3); PLATELET COUNT 124 K/mm3 (130-400); REDCELL DISTRIBUTION WIDTH-CV 14.5 % (11.5-14.5)
[2020-09-02 03:05] LABS: HEMATOCRIT 32.9 % (37.0-47.0)
[2020-09-02 03:31] LABS: ALANINE AMINOTRANSFERASE 27 U/L (4-34); ALKALINE PHOSPHATASE 275 U/L (50-136); ANION GAP 5 mmol/L (7-16); AST,SGOT 42 U/L (15-37); BILIRUBIN,TOTAL 0.3 mg/dL (0.0-1.0); BLOOD UREA NITROGEN 16 mg/dL (7-17); CALCIUM 9.3 mg/dL (8.4-10.2); CARBON DIOXIDE 33 mmol/L (22-30); CHLORIDE 103 mmol/L (98-107); CREATININE, serum 0.72 (0.52-1.25); GLUCOSE 117 mg/dL (74-106); SODIUM 141 mmol/L (137-145); TOTAL PROTEIN 7.2 gm/dL (6.4-8.2)
[2020-09-02 03:47] LABS: TROPONIN-I < 0.012 ng/mL (0.000-0.035)
[2020-09-02 04:28] VITALS: BP 124/70; PULSE 82
== END 2020-09-02 04:28 | disposition home or self-care (01) ==
LOC: COL.ER 02:05
PROVIDERS: Personal Emergency Response Attendant
DX: R07.89 Other chest pain (principal); R10.9 Unspecified abdominal pain; E11.9 Type 2 diabetes mellitus without complications; Z96.41 Presence of insulin pump (external) (internal); Z96.82 Presence of neurostimulator; Z98.61 Coronary angioplasty status; Z90.49 Acquired absence of other specified parts of digestive tract; Z90.89 Acquired absence of other organs; Z88.6 Allergy status to analgesic agent; Z79.4 Long term (current) use of insulin; Z79.82 Long term (current) use of aspirin

== ENCOUNTER 2020-10-09 17:32 | Emergency (ER) | payer MEDICARE, MEDICAID ==
[~2020-10-09] VITALS: Ht 154.9 cm; Wt 111.8 kg
[2020-10-09 18:28] LABS: BASO % 0.3 % (0.0-2.0); EOS # 0.1 (0.0-0.7); EOS % 1.1 % (0-4.0); GRAN # 8.8 (1.4-6.5); GRAN % 77.8 % (42.2-75.2); LYMPH # 1.8 (1.2-3.4); LYMPH % 15.5 % (20.0-51.0); MEAN CELL VOLUME 90 fl (80.0-100.0); MEAN CORPUSCULAR HEMOGLOBIN 29 pg (27.0-31.0); MEAN CORPUSCULAR HGB CONC 32 g/dl (33.0-37.0); MONO # 0.5 (0.1-0.6); MONO % 4.1 % (1.7-9.3); PLATELET COUNT 155 K/mm3 (130-400); RED BLOOD COUNT 3.85 M/mm3 (4.10-5.30); REDCELL DISTRIBUTION WIDTH-CV 14.7 % (11.5-14.5)
[2020-10-09 18:29] LABS: HEMATOCRIT 34.7 % (37.0-47.0)
[2020-10-09 18:37] LABS: ALANINE AMINOTRANSFERASE 27 U/L (4-34); ALBUMIN 4.2 gm/dL (3.5-5.0); ALKALINE PHOSPHATASE 334 U/L (50-136); ANION GAP 8 mmol/L (7-16); AST,SGOT 66 U/L (15-37); BILIRUBIN,TOTAL 0.3 mg/dL (0.0-1.0); BLOOD UREA NITROGEN 17 mg/dL (7-17); CALCIUM 9.1 mg/dL (8.4-10.2); CARBON DIOXIDE 33 mmol/L (22-30); CHLORIDE 97 mmol/L (98-107); CREATININE, serum 0.68 (0.52-1.25); GLUCOSE 246 mg/dL (74-106); POTASSIUM 4.3 mmol/L (3.4-5.0); SODIUM 138 mmol/L (137-145); TOTAL PROTEIN 7.8 gm/dL (6.4-8.2)
[2020-10-09 18:52] LABS: TROPONIN-I < 0.012 ng/mL (0.000-0.035)
[2020-10-09 20:15] VITALS: BP 1545/72; PULSE 79; TEMP 98.5
== END 2020-10-09 20:15 | disposition home or self-care (01) ==
LOC: COL.ER 17:32
PROVIDERS: Physician Assistant
DX: R07.89 Other chest pain (principal); J44.9 Chronic obstructive pulmonary disease, unspecified; I11.0 Hypertensive heart disease with heart failure; I50.9 Heart failure, unspecified; E78.5 Hyperlipidemia, unspecified; E11.43 Type 2 diabetes mellitus with diabetic autonomic (poly)neuropathy; K31.84 Gastroparesis; E11.40 Type 2 diabetes mellitus with diabetic neuropathy, unspecified; E03.9 Hypothyroidism, unspecified; F41.9 Anxiety disorder, unspecified; G40.909 Epilepsy, unspecified, not intractable, without status epilepticus; F43.10 Post-traumatic stress disorder, unspecified; F31.9 Bipolar disorder, unspecified; E66.01 Morbid (severe) obesity due to excess calories; Z98.61 Coronary angioplasty status; Z86.73 Personal history of transient ischemic attack (TIA), and cerebral infarction without residual deficits; Z86.16 Personal history of COVID-19; Z96.41 Presence of insulin pump (external) (internal); Z79.82 Long term (current) use of aspirin; Z79.4 Long term (current) use of insulin; Z79.899 Other long term (current) drug therapy
CPT/HCPCS: J2270; J2405

== ENCOUNTER 2020-10-19 05:11 | Emergency (ER) | payer MEDICARE, MEDICAID ==
[~2020-10-19] VITALS: Ht 154.9 cm; Wt 111.8 kg
[2020-10-19 05:17] VITALS: TEMP 98.1
[2020-10-19 06:37] VITALS: BP 123/66; PULSE 88
== END 2020-10-19 06:40 | disposition home or self-care (01) ==
LOC: COL.ER 05:11
DX: R07.89 Other chest pain (principal); J02.9 Acute pharyngitis, unspecified; R11.0 Nausea; T50.B95A Adverse effect of other viral vaccines, initial encounter; J44.9 Chronic obstructive pulmonary disease, unspecified; I10 Essential (primary) hypertension; E78.5 Hyperlipidemia, unspecified; E11.43 Type 2 diabetes mellitus with diabetic autonomic (poly)neuropathy; K31.84 Gastroparesis; E11.40 Type 2 diabetes mellitus with diabetic neuropathy, unspecified; E03.9 Hypothyroidism, unspecified; G40.909 Epilepsy, unspecified, not intractable, without status epilepticus; F41.9 Anxiety disorder, unspecified; F31.9 Bipolar disorder, unspecified; E66.01 Morbid (severe) obesity due to excess calories; Z79.4 Long term (current) use of insulin; Z79.52 Long term (current) use of systemic steroids; Z79.890 Hormone replacement therapy; Z79.899 Other long term (current) drug therapy
CPT/HCPCS: J2270; J2550

== ENCOUNTER 2020-10-27 18:46 | Emergency (ER) | payer MEDICARE, MEDICAID ==
[~2020-10-27] VITALS: Ht 154.9 cm; Wt 113.6 kg
[2020-10-27 18:47] VITALS: TEMP 98.2
[2020-10-27 19:34] LABS: BASO % 0.3 % (0.0-2.0); EOS # 0.1 (0.0-0.7); EOS % 0.9 % (0-4.0); GRAN # 10.4 (1.4-6.5); GRAN % 82.1 % (42.2-75.2); HEMOGLOBIN 10.7 g/dl (12.5-16.0); LYMPH # 1.5 (1.2-3.4); LYMPH % 11.8 % (20.0-51.0); MEAN CELL VOLUME 88 fl (80.0-100.0); MEAN CORPUSCULAR HEMOGLOBIN 28 pg (27.0-31.0); MEAN CORPUSCULAR HGB CONC 32 g/dl (33.0-37.0); MEAN PLATELET VOLUME 9.8 fl (7.4-10.4); MONO # 0.5 (0.1-0.6); MONO % 3.8 % (1.7-9.3); PLATELET COUNT 147 K/mm3 (130-400); RED BLOOD COUNT 3.82 M/mm3 (4.10-5.30); REDCELL DISTRIBUTION WIDTH-CV 14.5 % (11.5-14.5)
[2020-10-27 19:37] LABS: HEMATOCRIT 33.5 % (37.0-47.0)
[2020-10-27 19:46] LABS: ALBUMIN 4.2 gm/dL (3.5-5.0); BILIRUBIN,TOTAL 0.3 mg/dL (0.0-1.0); CALCIUM 8.8 mg/dL (8.4-10.2); CREATININE, serum 0.71 (0.52-1.25); POTASSIUM 3.8 mmol/L (3.4-5.0); TOTAL PROTEIN 7.4 gm/dL (6.4-8.2)
[2020-10-27 20:38] VITALS: BP 129/44; PULSE 84
== END 2020-10-27 20:38 | disposition home or self-care (01) ==
LOC: COL.ER 18:46
PROVIDERS: Physician Assistant
DX: R10.9 Unspecified abdominal pain (principal); D64.9 Anemia, unspecified; E11.9 Type 2 diabetes mellitus without complications; Z79.4 Long term (current) use of insulin; Z90.49 Acquired absence of other specified parts of digestive tract; Z96.82 Presence of neurostimulator; Z86.16 Personal history of COVID-19; Z88.1 Allergy status to other antibiotic agents
CPT/HCPCS: J1790; J2405

== ENCOUNTER → 2020-11-01 | Outpatient (CLI) | payer MEDICARE, MEDICAID ==
[~2020-11-01] MED LIST changes: +BENTYL 20MG20 MG/TAB PO
[2020-11-01 19:09] LABS: COLLECTION METHOD CLEAN CATCH
[2020-11-01 19:41] LABS: MUCOUS Present /lpf; PH 6 (5-8); URINE APPEARANCE Hazy; URINE BACTERIA None Seen /hpf; URINE BILIRUBIN Negative (NEGATIVE); URINE BLOOD Negative (NEGATIVE); URINE COLOR Yellow; URINE GLUCOSE 1+ (NEGATIVE); URINE KETONE Negative (NEGATIVE); URINE LEUKOCYTE ESTERASE Trace (NEGATIVE); URINE NITRATE Negative (NEGATIVE); URINE PROTEIN(semi-quant) Negative (NEGATIVE); URINE RBC 0-2 /hpf; URINE UROBILINOGEN Negative (NEGATIVE)
== END ==
LOC: ZCOL.LAB 18:19
DX: Z01.89 Encounter for other specified special examinations (principal)

== ENCOUNTER 2020-12-26 14:58 | Emergency (ER) | payer MEDICARE, MEDICAID ==
[~2020-12-26] VITALS: Ht 154.9 cm; Wt 111.4 kg
[~2020-12-26 14:58] MED LIST changes: -BENTYL 20MG20 MG/TAB PO
[2020-12-26 15:01] VITALS: TEMP 98.8
[2020-12-26 15:54] LABS: COLLECTION METHOD CLEAN CATCH
[2020-12-26 16:02] LABS: PH 7 (5-8); SQUAMOUS EPITHELIAL None Seen /hpf; URINE APPEARANCE Clear; URINE BACTERIA None Seen /hpf; URINE BILIRUBIN Negative (NEGATIVE); URINE BLOOD Negative (NEGATIVE); URINE COLOR Yellow; URINE GLUCOSE Negative (NEGATIVE); URINE KETONE Negative (NEGATIVE); URINE LEUKOCYTE ESTERASE Negative (NEGATIVE); URINE NITRATE Negative (NEGATIVE); URINE PROTEIN(semi-quant) Negative (NEGATIVE); URINE RBC 0-2 /hpf; URINE UROBILINOGEN Negative (NEGATIVE)
[2020-12-26 16:16] LABS: BASO # 0.1 K/mm3 (0.0-0.2); BASO % 0.4 % (0.0-2.0); EOS # 0.1 K/mm3 (0.0-0.7); EOS % 0.9 % (0-4.0); GRAN # 9.4 K/mm3 (1.4-6.5); GRAN % 81.5 % (42.2-75.2); HEMOGLOBIN 10.8 g/dl (12.5-16.0); LYMPH # 1.4 K/mm3 (1.2-3.4); LYMPH % 12.3 % (20.0-51.0); MEAN CELL VOLUME 87 fl (80.0-100.0); MEAN CORPUSCULAR HEMOGLOBIN 28 pg (27.0-31.0); MEAN CORPUSCULAR HGB CONC 32 g/dl (33.0-37.0); MEAN PLATELET VOLUME 9.5 fl (7.4-10.4); MONO # 0.4 K/mm3 (0.1-0.6); MONO % 3.8 % (1.7-9.3); PLATELET COUNT 137 K/mm3 (130-400); RED BLOOD COUNT 3.88 M/mm3 (4.10-5.30)
[2020-12-26 16:18] LABS: HEMATOCRIT 33.6 % (37.0-47.0)
[2020-12-26 16:39] LABS: ALBUMIN 3.8 gm/dL (3.5-5.0); BILIRUBIN,TOTAL 0.2 mg/dL (0.2-1.2); CALCIUM 9.3 mg/dL (8.4-10.2); CREATININE, serum 0.74 mg/dL (0.57-1.11); POTASSIUM 3.8 mmol/L (3.5-4.5); TOTAL PROTEIN 7.3 gm/dL (6.2-8.1)
[2020-12-26] MEDS ORDERED: BENTYL 20MG20 MG/TAB PO (18:05)
[2020-12-26 18:30] VITALS: BP 143/68; PULSE 80
== END 2020-12-26 18:30 | disposition home or self-care (01) ==
LOC: COL.ER 14:58
PROVIDERS: Personal Emergency Response Attendant
DX: R10.12 Left upper quadrant pain (principal); E11.43 Type 2 diabetes mellitus with diabetic autonomic (poly)neuropathy; K31.84 Gastroparesis; E66.01 Morbid (severe) obesity due to excess calories; Z87.442 Personal history of urinary calculi; Z90.49 Acquired absence of other specified parts of digestive tract; Z86.16 Personal history of COVID-19; Z85.028 Personal history of other malignant neoplasm of stomach; Z88.5 Allergy status to narcotic agent; Z68.42 Body mass index [BMI] 45.0-49.9, adult; Z96.41 Presence of insulin pump (external) (internal)
CPT/HCPCS: C9113; J0500; J1790; J2270; J7030

== ENCOUNTER 2021-01-07 16:44 | Emergency (ER) | payer MEDICARE, MEDICAID ==
[~2021-01-07] VITALS: Ht 157.5 cm; Wt 112.3 kg
[~2021-01-07 16:44] MED LIST changes: +BENTYL 20MG20 MG/TAB PO
[2021-01-07 17:08] LABS: COLLECTION METHOD CATHETER
[2021-01-07 17:22] LABS: MUCOUS Present /lpf; PH 5 (5-8); URINE APPEARANCE Hazy; URINE BACTERIA None Seen /hpf; URINE BILIRUBIN Negative (NEGATIVE); URINE BLOOD Negative (NEGATIVE); URINE COLOR Yellow; URINE GLUCOSE Negative (NEGATIVE); URINE KETONE Negative (NEGATIVE); URINE LEUKOCYTE ESTERASE Trace (NEGATIVE); URINE NITRATE Negative (NEGATIVE); URINE PROTEIN(semi-quant) Negative (NEGATIVE); URINE RBC 0-2 /hpf; URINE UROBILINOGEN Negative (NEGATIVE)
[2021-01-07 17:31] LABS: TRICYCLIC ANTIDEPRESS URINE NEGATIVE
[2021-01-07 18:13] LABS: BASO % 0.3 % (0.0-2.0); EOS # 0.1 K/mm3 (0.0-0.7); EOS % 0.8 % (0-4.0); GRAN # 11.9 K/mm3 (1.4-6.5); GRAN % 83.4 % (42.2-75.2); HEMOGLOBIN 10.7 g/dl (12.5-16.0); LYMPH # 1.4 K/mm3 (1.2-3.4); MEAN CELL VOLUME 88 fl (80.0-100.0); MEAN CORPUSCULAR HEMOGLOBIN 28 pg (27.0-31.0); MEAN CORPUSCULAR HGB CONC 32 g/dl (33.0-37.0); MEAN PLATELET VOLUME 9.7 fl (7.4-10.4); MONO # 0.6 K/mm3 (0.1-0.6); MONO % 4.4 % (1.7-9.3); PLATELET COUNT 157 K/mm3 (130-400); RED BLOOD COUNT 3.77 M/mm3 (4.10-5.30); REDCELL DISTRIBUTION WIDTH-CV 14.5 % (11.5-14.5)
[2021-01-07 18:25] LABS: ALANINE AMINOTRANSFERASE 28 U/L (0-55); ALBUMIN 3.8 gm/dL (3.5-5.0); ALKALINE PHOSPHATASE 433 U/L (40-150); ANION GAP 13 mmol/L (7-16); AST,SGOT 62 U/L (5-34); BILIRUBIN,TOTAL 0.2 mg/dL (0.2-1.2); BLOOD UREA NITROGEN 19 mg/dL (10-20); CALCIUM 9.9 mg/dL (8.4-10.2); CARBON DIOXIDE 27 mmol/L (22-29); CHLORIDE 101 mmol/L (98-107); CREATININE, serum 0.74 mg/dL (0.57-1.11); GLUCOSE 82 mg/dL (70-99); POTASSIUM 3.7 mmol/L (3.5-4.5); SODIUM 141 mmol/L (136-145); TOTAL PROTEIN 8.2 gm/dL (6.2-8.1)
[2021-01-07 18:26] LABS: ACETAMINOPHEN < 1.0 ug/mL (10-30); ALCOHOL(ethanol),MEDICAL < 10 mg/dL (0-10); SALICYLATE < 5.0 mg/dL (15.0-30.0)
[2021-01-08 06:51] VITALS: TEMP 97.9
[2021-01-09 07:17] VITALS: BP 137/64; PULSE 94
== END 2021-01-09 07:19 ==
LOC: COL.ER 16:44
PROVIDERS: Nurse Practitioner
DX: R45.851 Suicidal ideations (principal); J44.9 Chronic obstructive pulmonary disease, unspecified; E11.9 Type 2 diabetes mellitus without complications; Z79.899 Other long term (current) drug therapy; Z79.4 Long term (current) use of insulin; Z20.822 Contact with and (suspected) exposure to COVID-19

== ENCOUNTER → 2021-02-24 | Outpatient (CLI) | payer MEDICARE, MEDICAID | LOC: MC.RAD 09:06 | DX: R22.32 Localized swelling, mass and lump, left upper limb (principal); N64.4 Mastodynia ==

== ENCOUNTER 2021-03-14 04:55 | Day surgery (SDC) | payer MEDICARE, MEDICAID ==
[~2021-03-14] VITALS: Ht 154.9 cm; Wt 108.2 kg
[2021-03-14 06:23] VITALS: BP 155/73; PULSE 79; TEMP 97.5
[2021-03-14] MEDS ORDERED: TYLENOL 500MG500 MG PO (06:36)
[2021-03-14] MEDS ORDERED: BENTYL 20MG20 MG/TAB PO (06:37)
[2021-03-14] MEDS ORDERED: ALBUTEROL0.83 MG/ML IH (06:37)
[2021-03-14] MEDS ORDERED: BREO IH (06:38)
[2021-03-14] MEDS ORDERED: COZAAR 50MG50 MG/TAB PO (06:39)
[2021-03-14] MEDS ORDERED: FLEXERIL5 MG PO (06:40)
[2021-03-14] MEDS ORDERED: CRESTOR40 MG PO (06:40)
[2021-03-14] MEDS ORDERED: LAMISIL1% TOP (06:44)
[2021-03-14] MEDS ORDERED: LASIX 20MG TABL20 MG PO (06:45)
[2021-03-14] MEDS ORDERED: SYNTHROID 0.0.025 MG PO (06:48)
[2021-03-14] MEDS ORDERED: MAG-OX 400400 MG/TAB PO (06:49)
[2021-03-14] MEDS ORDERED: MYRBETR50MG PO (06:50)
[2021-03-14] MEDS ORDERED: NEURONTIN300 MG/CAP PO ×2 (06:52→06:54)
[2021-03-14] MEDS ORDERED: NOVOLOG 100U100 U/M1 SQ (07:03)
[2021-03-14] MEDS ORDERED: K-DUR20 MEQ PO (07:06)
[2021-03-14] MEDS ORDERED: PHENERGAN 25 TA25 MG PO (07:07)
[2021-03-14] MEDS ORDERED: VRAYLAR1.5 MG PO (07:09)
[2021-03-14] MEDS ORDERED: ZOLOFT 100MG100 MG PO (07:10)
--- NOTE | 2021-03-14 08:15 | NUR ---
iVk Gilliland CRNA has been at the patient's bedside to place an IV for surgery with the use of the ultrasound machine. An IV was obtained in the patient's left anecubital after several attempts. The operating room nurse is waiting with the patient's chart to take her back to surgery. The patient's mother is going to wait in the patient's room.
[2021-03-14] MEDS ORDERED: NORCO 325 MG-51 TAB PO (09:06)
[2021-03-14 09:45] VITALS: BP 155/73; PULSE 80
--- NOTE | 2021-03-14 09:45 | NUR ---
The patient arrived back to [place] [facility] from the recovery room at this time. The patient appears alert and oriented at this time. She verbalizes some discomfort in her left axillary incision and some nausea. She requests some toast stating it will "help her stomach". The patient will be given a PRN dose of [place] once she has finished her toast. The patient's post operative vital signs were started at this time. The patient's mother is at he bedside at this time. Call light is within reach. Will continue to monitor the patient.
[2021-03-14 10:00] VITALS: BP 151/67; PULSE 93
--- NOTE | 2021-03-14 10:00 | NUR ---
The patient appears to be tolerating the food and drink well. Vital signs appear stable. Will continue to monitor the patient.
[2021-03-14 10:20] VITALS: BP 153/67; PULSE 87
--- NOTE | 2021-03-14 10:20 | NUR ---
The patient was given a PRN dose of [place] one tab at this time. The patient ambulated to the bathroom with the stand by assistance of one nurse and appeared to tolerate the activity well. The patient voided a small amount but is adamant that she be discharged back to assistive living. She states she will "be able to go at home better".
--- NOTE | 2021-03-14 10:25 | NUR ---
The patient's IV to her left anecubital was removed and a pressure dressing was applied to the site. The nurse assisted the patient to get dressed and she appeared to tolerate the activity well. Discharge instructions were reviewed and she denied any questions at this time. The patient's mother is going to pull the car up to the patient entrance to pick the patient up.
[2021-03-14 10:27] VITALS: BP 151/73; PULSE 87; TEMP 98.1
--- NOTE | 2021-03-14 10:32 | NUR ---
The patient was escorted out via wheelchair to a private vehicle by SUSHIL Arshad. The patient's belongings and discharge paperwork were sent with her. The patient's mother is present to drive her home. The nurse discussed with the patient regarding the surgical glue that was used to close her incision and how it has adhered to the under side of her arm also. It was reviewed that she should do some gentle range of motion and use a wet warm wash cloth to help dissolve the extra glue. She verbalized understanding.
== END 2021-03-14 10:32 | disposition home or self-care (01) ==
LOC: SDCO 04:55
DX: L72.8 Other follicular cysts of the skin and subcutaneous tissue (principal); E10.43 Type 1 diabetes mellitus with diabetic autonomic (poly)neuropathy; K31.84 Gastroparesis; E10.22 Type 1 diabetes mellitus with diabetic chronic kidney disease; I12.9 Hypertensive chronic kidney disease with stage 1 through stage 4 chronic kidney disease, or unspecified chronic kidney disease; N18.9 Chronic kidney disease, unspecified; Z79.4 Long term (current) use of insulin; E66.9 Obesity, unspecified; J96.11 Chronic respiratory failure with hypoxia; J44.9 Chronic obstructive pulmonary disease, unspecified; G47.30 Sleep apnea, unspecified; E03.9 Hypothyroidism, unspecified; G43.909 Migraine, unspecified, not intractable, without status migrainosus; F31.9 Bipolar disorder, unspecified; F41.9 Anxiety disorder, unspecified; F25.9 Schizoaffective disorder, unspecified; F60.3 Borderline personality disorder; N39.3 Stress incontinence (female) (male); R56.9 Unspecified convulsions; K21.9 Gastro-esophageal reflux disease without esophagitis; Z99.81 Dependence on supplemental oxygen; Z79.82 Long term (current) use of aspirin; Z79.899 Other long term (current) drug therapy; Z79.890 Hormone replacement therapy; Z68.42 Body mass index [BMI] 45.0-49.9, adult; Z85.028 Personal history of other malignant neoplasm of stomach; Z98.0 Intestinal bypass and anastomosis status; Z96.82 Presence of neurostimulator; Z79.51 Long term (current) use of inhaled steroids
CPT/HCPCS: J0690; J1100; J1170; J2405; J2550; J2704; J3010; J7030

== ENCOUNTER 2021-04-14 17:11 | Emergency (ER) | payer MEDICARE, MEDICAID ==
[~2021-04-14] VITALS: Ht 154.9 cm; Wt 110.5 kg
[~2021-04-14 17:11] MED LIST changes: +COZAAR 50MG50 MG/TAB PO; +CRESTOR40 MG PO; +FLEXERIL5 MG PO; +LAMISIL1% TOP; +MYRBETR50MG PO; +SYNTHROID 0.0.025 MG PO; +VRAYLAR1.5 MG PO
[2021-04-14 17:15] VITALS: TEMP 99.2
[2021-04-14 18:17] LABS: BASO % 0.3 % (0.0-2.0); EOS # 0.1 K/mm3 (0.0-0.7); GRAN % 77.6 % (42.2-75.2); HEMOGLOBIN 10.1 g/dl (12.5-16.0); LYMPH # 1.8 K/mm3 (1.2-3.4); LYMPH % 15.6 % (20.0-51.0); MEAN CELL VOLUME 87 fl (80.0-100.0); MEAN CORPUSCULAR HEMOGLOBIN 27 pg (27-31); MEAN CORPUSCULAR HGB CONC 31 g/dl (33.0-37.0); MEAN PLATELET VOLUME 9.7 fl (7.4-10.4); MONO # 0.5 K/mm3 (0.1-0.6); MONO % 4.3 % (1.7-9.3); PLATELET COUNT 142 K/mm3 (130-400); RED BLOOD COUNT 3.73 M/mm3 (4.10-5.30); REDCELL DISTRIBUTION WIDTH-CV 14.6 % (11.5-14.5)
[2021-04-14 18:30] LABS: HEMATOCRIT 32.3 % (37.0-47.0)
[2021-04-14 18:33] LABS: ALANINE AMINOTRANSFERASE 28 U/L (0-55); ALBUMIN 3.7 gm/dL (3.5-5.0); ALKALINE PHOSPHATASE 228 U/L (40-150); ANION GAP 11 mmol/L (7-16); AST,SGOT 55 U/L (5-34); BILIRUBIN,TOTAL 0.2 mg/dL (0.2-1.2); BLOOD UREA NITROGEN 25 mg/dL (10-20); C-REACTIVE PROTEIN 1.33 mg/dL (0.00-0.50); CALCIUM 9.1 mg/dL (8.4-10.2); CARBON DIOXIDE 27 mmol/L (22-29); CHLORIDE 103 mmol/L (98-107); CREATININE, serum 0.82 mg/dL (0.57-1.11); GLUCOSE 185 mg/dL (70-99); POTASSIUM 4.3 mmol/L (3.5-4.5); SODIUM 141 mmol/L (136-145); TOTAL PROTEIN 7.3 gm/dL (6.2-8.1)
[2021-04-14 18:44] LABS: TROPONIN-I < 0.010 ng/mL (0.00-0.033)
[2021-04-14] MEDS ORDERED: ZOFRAN ODT4 MG PO (19:24)
[2021-04-14 19:58] VITALS: BP 136/59; PULSE 71
== END 2021-04-14 19:58 | disposition home or self-care (01) ==
LOC: COL.ER 17:11
PROVIDERS: Nurse Practitioner Primary Care
DX: J06.9 Acute upper respiratory infection, unspecified (principal); I11.0 Hypertensive heart disease with heart failure; I50.33 Acute on chronic diastolic (congestive) heart failure; J44.9 Chronic obstructive pulmonary disease, unspecified; E78.5 Hyperlipidemia, unspecified; E11.43 Type 2 diabetes mellitus with diabetic autonomic (poly)neuropathy; K31.84 Gastroparesis; E11.40 Type 2 diabetes mellitus with diabetic neuropathy, unspecified; E03.9 Hypothyroidism, unspecified; G40.909 Epilepsy, unspecified, not intractable, without status epilepticus; F41.9 Anxiety disorder, unspecified; F32.A Depression, unspecified; F43.10 Post-traumatic stress disorder, unspecified; E66.01 Morbid (severe) obesity due to excess calories; Z87.891 Personal history of nicotine dependence; Z79.899 Other long term (current) drug therapy; Z79.82 Long term (current) use of aspirin; Z79.890 Hormone replacement therapy; Z79.51 Long term (current) use of inhaled steroids; Z79.4 Long term (current) use of insulin; Z68.42 Body mass index [BMI] 45.0-49.9, adult; Z20.822 Contact with and (suspected) exposure to COVID-19
CPT/HCPCS: J2405

== ENCOUNTER 2021-04-25 05:46 | Day surgery (SDC) | payer MEDICARE, MEDICAID ==
[~2021-04-25] VITALS: Ht 154.9 cm; Wt 115.0 kg
[2021-04-25] MEDS ORDERED: CELEBREX 1100 MG/CAP PO (06:21)
[2021-04-25] MEDS ORDERED: D3-5050000 IU PO (06:29)
[2021-04-25 06:33] VITALS: BP 122/63; PULSE 77; TEMP 97.7
[2021-04-25 09:30] VITALS: BP 164/78; PULSE 77; TEMP 97.3
--- NOTE | 2021-04-25 09:30 | NUR ---
RECEIVED PT FROM ENDO RN. REPORT RECEIVED. VS OBTAINED. VSS. BS 103 PER PT MONITOR-INSULIN PUMP. DISCUSSED PLAN OF CARE FOR DISCHARGE. WILL CONTINUE TO MONITOR. PT ORIENTED TO ROOM AND CALL LIGHT.
[2021-04-25 09:45] VITALS: BP 153/75; PULSE 73
--- NOTE | 2021-04-25 09:45 | NUR ---
PT TOLERATING PO WITHOUT DIFFICULTY. VSS. WILL CONTINUE TO MONITOR PT.
[2021-04-25 10:00] VITALS: BP 145/76; PULSE 74
--- NOTE | 2021-04-25 10:00 | NUR ---
PT STATES SHE IS READY FOR DISCHARGE. VSS. TOLERATING PO.
--- NOTE | 2021-04-25 10:05 | NUR ---
IV DC'D. DISCHARGE EDUCATION COMPLETED WITH PT AND MOTHER. ALL QUESTIONS ANSWERED. DISCHARGE PAPERWORK GIVEN TO PT'S MOTHER.
--- NOTE | 2021-04-25 10:20 | NUR ---
PT OFF UNIT PER WHEELCHAIR ACCOMPANIED BY MOTHER. DISCHARGED TO HOME WITH MOTHER.
[2021-04-25 16:34] VITALS: BP 116/62; PULSE 73
== END 2021-04-25 10:20 | disposition home or self-care (01) ==
LOC: SDCO 05:46
DX: E11.43 Type 2 diabetes mellitus with diabetic autonomic (poly)neuropathy (principal); K31.84 Gastroparesis; K21.00 Gastro-esophageal reflux disease with esophagitis, without bleeding; I12.9 Hypertensive chronic kidney disease with stage 1 through stage 4 chronic kidney disease, or unspecified chronic kidney disease; N18.6 End stage renal disease; E11.22 Type 2 diabetes mellitus with diabetic chronic kidney disease; K76.0 Fatty (change of) liver, not elsewhere classified; R74.8 Abnormal levels of other serum enzymes; J96.11 Chronic respiratory failure with hypoxia; F31.9 Bipolar disorder, unspecified; Z96.82 Presence of neurostimulator; Z86.16 Personal history of COVID-19; Z85.028 Personal history of other malignant neoplasm of stomach; Z79.82 Long term (current) use of aspirin; Z79.4 Long term (current) use of insulin
CPT/HCPCS: J2550; J2704; J7120

== ENCOUNTER 2021-04-30 16:16 | Observation (INO) | payer MEDICARE, MEDICAID ==
[~2021-04-30] VITALS: Ht 154.9 cm; Wt 109.5 kg
[~2021-04-30 16:16] MED LIST changes: +CELEBREX 1100 MG/CAP PO; +D3-5050000 IU PO
[2021-04-30 18:02] LABS: COLLECTION METHOD CLEAN CATCH
[2021-04-30 18:07] LABS: MUCOUS Present (NOT PRESENT); PH 7 (5-8); SQUAMOUS EPITHELIAL 0-2 /hpf (0-10); URINE APPEARANCE Clear (CLEAR/HAZY); URINE BACTERIA None Seen /hpf (NONE SEEN); URINE BILIRUBIN Negative (NEGATIVE); URINE BLOOD Negative (NEGATIVE); URINE COLOR Straw (YELLOW); URINE GLUCOSE 3+ (NEGATIVE); URINE KETONE Negative (NEGATIVE); URINE LEUKOCYTE ESTERASE Negative (NEGATIVE); URINE NITRATE Negative (NEGATIVE); URINE PROTEIN(semi-quant) Negative (NEGATIVE); URINE RBC 0-2 /hpf (0-2); URINE UROBILINOGEN Negative (NEGATIVE); URINE WBC 0-2 /hpf (0-2)
[2021-04-30 18:21] LABS: BASO % 0.4 % (0.0-2.0); EOS # 0.1 K/mm3 (0.0-0.7); EOS % 0.9 % (0.0-4.0); GRAN # 8.6 K/mm3 (1.4-6.5); GRAN % 80.5 % (42.2-75.2); LYMPH # 1.4 K/mm3 (1.2-3.4); LYMPH % 13.4 % (20.0-51.0); MEAN CELL VOLUME 88 fl (80.0-100.0); MEAN CORPUSCULAR HGB CONC 31 g/dl (33.0-37.0); MEAN PLATELET VOLUME 10.1 fl (7.4-10.4); MONO # 0.4 K/mm3 (0.1-0.6); MONO % 3.8 % (1.7-9.3); PLATELET COUNT 104 K/mm3 (130-400); RED BLOOD COUNT 3.47 M/mm3 (4.10-5.30)
[2021-04-30 18:23] LABS: INR 1.1 (0.8-3.0)
[2021-04-30 18:26] LABS: HEMATOCRIT 30.6 % (37.0-47.0); HEMOGLOBIN 9.4 g/dl (12.5-16.0); MEAN CORPUSCULAR HEMOGLOBIN 27 pg (27-31)
[2021-04-30 18:26] LABS: PARTIAL THROMBOPLASTIN TIME 36.8 SECONDS (26.0-37.0)
[2021-04-30 18:42] LABS: ALANINE AMINOTRANSFERASE 28 U/L (0-55); ALKALINE PHOSPHATASE 237 U/L (40-150); ANION GAP 11 mmol/L (7-16); AST,SGOT 32 U/L (5-34); BILIRUBIN,TOTAL 0.2 mg/dL (0.2-1.2); BLOOD UREA NITROGEN 20 mg/dL (10-20); CALCIUM 9.4 mg/dL (8.4-10.2); CARBON DIOXIDE 31 mmol/L (22-29); CHLORIDE 99 mmol/L (98-107); CREATININE, serum 1.05 mg/dL (0.57-1.11); GLUCOSE 390 mg/dL (70-99); POTASSIUM 3.9 mmol/L (3.5-4.5); SODIUM 141 mmol/L (136-145); TOTAL PROTEIN 7.5 gm/dL (6.2-8.1)
[2021-04-30 18:52] LABS: TROPONIN-I < 0.010 ng/mL (0.00-0.033)
[2021-04-30 19:41] LABS: ARTERIAL BLD GAS O2 SATURATION 95.1 % (92-100); ARTERIAL BLD GAS TCO2 CT 32.9; ARTERIAL BLOOD GAS BASE EXCESS 4.3 (-2-2); ARTERIAL BLOOD GAS HCO3 31.2 meq/L (22-26); ARTERIAL BLOOD GAS PCO2 58.4 mmHg (35-45); ARTERIAL BLOOD GAS PO2 82.9 mmHg (80-100); ARTERIAL BLOOD GAS pH 7.35 (7.35-7.45)
[2021-04-30] MEDS ORDERED: ERGOCALCIFER50000 IU PO (21:24)
[2021-04-30] MEDS ORDERED: TRELEGY ELLIPT1 EACH IH (21:24)
[2021-04-30] MEDS ORDERED: ZYRTEC 10MG10 MG PO (21:24)
[2021-04-30] MEDS ORDERED: CELEBREX 1100 MG/CAP PO (21:25)
[2021-04-30] MEDS ORDERED: ALBUTEROL0.83 MG/ML IH (21:25)
[2021-04-30] MEDS ORDERED: VOLTAREN GEL 1%1 TU TP (21:26)
[2021-04-30] MEDS ORDERED: ATARAX50 MG PO ×2 (21:27→21:28)
[2021-04-30] MEDS ORDERED: BENTYL 20MG20 MG/TAB PO (21:27)
[2021-04-30] MEDS ORDERED: DESYREL DIVIDO150 M1 PO (21:28)
[2021-04-30] MEDS ORDERED: COZAAR 50MG50 MG/TAB PO (21:28)
[2021-04-30] MEDS ORDERED: CRESTOR40 MG PO (21:28)
[2021-04-30] MEDS ORDERED: FERROUSAL325 MG PO (21:29)
[2021-04-30] MEDS ORDERED: K-DUR20 MEQ PO (21:29)
[2021-04-30] MEDS ORDERED: LAMICTAL200 MG PO (21:29)
[2021-04-30] MEDS ORDERED: LOPRESSOR 550 MG/TAB PO (21:30)
[2021-04-30] MEDS ORDERED: MAG-OX 400400 MG/TAB PO (21:30)
[2021-04-30] MEDS ORDERED: MINIPRESS 5M5 MG/CAP PO (21:31)
[2021-04-30] MEDS ORDERED: NEURONTIN300 MG/CAP PO (21:32)
[2021-04-30] MEDS ORDERED: MYRBETR50MG PO (21:32)
[2021-04-30] MEDS ORDERED: PRILOSEC 20MG20 MG PO (21:32)
[2021-04-30] MEDS ORDERED: TOPAMAX50 MG PO (21:33)
[2021-04-30] MEDS ORDERED: SYNTHROID0.05 MG/TA PO (21:33)
[2021-04-30] MEDS ORDERED: VRAYLAR3 MG PO (21:33)
[2021-04-30] MEDS ORDERED: ZOLOFT 100MG100 MG PO (21:34)
[2021-04-30] MEDS ORDERED: TYLENOL 500MG500 MG PO (21:43)
[2021-04-30] MEDS ORDERED: LASIX 40MG TABL40 MG PO (21:49)
[2021-04-30 22:36] LABS: C-REACTIVE PROTEIN 2.99 mg/dL (0.00-0.50); MAGNESIUM 1.8 mg/dL (1.6-2.6); PHOSPHOROUS 4.6 mg/dL (2.3-4.7)
[2021-04-30 22:39] VITALS: BP 145/50; PULSE 74; TEMP 98.7
[2021-04-30 22:56] LABS: THYROID STIMULATING HORMONE 9.038 uIU/mL (0.350-4.940)
[2021-05-01] VITALS (8 sets, daily range): BP systolic 107–155; BP diastolic 45–90; PULSE 65–94; TEMP 97.4–98.4
--- NOTE | 2021-05-01 05:00 | NUR ---
PT ARRIVED TO MEDICAL FLOOR AROUND 2230HRS TO RM 352. PT A&O X 4; VSS; O2 4L (BASE: COPD). PT COMPLAINED OF GENERALIZED PAIN SHE RATED AN 8 TO 9. TO GIVEN DILAUDID TWICE TO NIGHT FOR PAIN. PT DENIED SOB, N,V,D, PALPITATIONS OR DIZZINESS. ADMISSIONS ASSESSMENT AND MED REC COMPLETE. PT ORIENTED TO ROOM AND HOSPITAL POLICY. POC DISUSSED WITH PT. PT VERBALIZED UNDERSTANDING. ALL QUESTIONS AND CONCERNS ADDRESSED. PT EXPRESSED NO OTHER NEEDS AT THIS TIME. CALL LIGHT WITHIN REACH.
[2021-05-01 06:22] LABS: BASO % 0.4 % (0.0-2.0); EOS # 0.1 K/mm3 (0.0-0.7); EOS % 0.9 % (0.0-4.0); GRAN # 6.1 K/mm3 (1.4-6.5); GRAN % 75.6 % (42.2-75.2); HEMATOCRIT 30.7 % (37.0-47.0); HEMOGLOBIN 9.4 g/dl (12.5-16.0); LYMPH # 1.4 K/mm3 (1.2-3.4); LYMPH % 17.5 % (20.0-51.0); MEAN CELL VOLUME 89 fl (80.0-100.0); MEAN CORPUSCULAR HEMOGLOBIN 27 pg (27-31); MEAN CORPUSCULAR HGB CONC 31 g/dl (33.0-37.0); MEAN PLATELET VOLUME 10.2 fl (7.4-10.4); MONO # 0.4 K/mm3 (0.1-0.6); MONO % 4.7 % (1.7-9.3); PLATELET COUNT 100 K/mm3 (130-400); RED BLOOD COUNT 3.44 M/mm3 (4.10-5.30); REDCELL DISTRIBUTION WIDTH-CV 15.1 % (11.5-14.5)
[2021-05-01 07:52] LABS: CALCIUM 9.2 mg/dL (8.4-10.2); CREATININE, serum 0.76 mg/dL (0.57-1.11); POTASSIUM 3.9 mmol/L (3.5-4.5)
--- NOTE | 2021-05-01 10:02 | NUR ---
SW met with the patient to discuss discharge plan. The patient resides at [facility]. She reports independence with ADLs and has a walker and continuous oxygen from [employer]. The patient's PCP is Dr. Lian Carson and she receives her medications from [facility] . The patient's DPOA-HC is in EMR and it designates her mother, Samaria Nowak (ph#[phone]). The patient confirms that this is still correct. The patient plans on returning back to [facility] upon discharge. DELANO contacted and faxed updates to [facility]. SW to continue to follow. *Discharge plan: [facility]*
--- NOTE | 2021-05-01 13:57 | NUR ---
Primary nurse was assisted with [phone] patient care by [facility] Lina Johnson and [facility] instructor Teresa Hankins MSN, RN.
--- NOTE | 2021-05-01 19:28 | NUR ---
Duoneb and Pulmicort txs given via mask. Pt falls asleep very easily (snoring) and multiple times during txs. Txs tolerated well.
--- NOTE | 2021-05-02 00:26 | NUR ---
ASSESSMENT COMPLETE FOR THIS SHIFT. PT RESTING IN BED SLEEPING. PT COMPLAINED OF GENERALIZED PAIN. PT GIVEN FLEXERIL AND TYLENOL BY DAYSHIFT, LESS THEN TWO HOURS PRIOR TO ASSESSMENT. PT ALSO GIVEN NEURONTIN FOR PAIN. PT UNABLE TO GET DILAUDID DO TO PT COMPLAINING THAT IT HURTS TO FLUSH HER IV, BUT NOT WHEN DILAUDID IS GIVEN. WORKING ON TRYING TO START A NEW IV SITE. PT DENIES PALPITATIONS, SOB, N,V,D OR DIZZINESS. PT'S BS WAS 144. PT STATED, OH, THAT'S NOT BAD." PT STATED SHE WOULD NOT BE GIVING HERSELF ANY INSULIN TONIGHT. PT QUICKLY FELLS BACK TO SLEEP AFTER SPEAKING WITH ME. PT EXPRESSED NO OTHER NEEDS AT THIS TIME. CALL LIGHT WITHIN REACH.
[2021-05-02 03:35] VITALS: BP 112/50; PULSE 87; TEMP 97.7
--- NOTE | 2021-05-02 04:15 | NUR ---
PT HAS CALLED OUT A FEW TIMES TONIGHT WANTING DILAUDID. HOWEVER, EVERYTIME I GO IN TO ASSESS PT'S PAIN, SHE IS ASLEEP AND NEEDS TACTILE STIMULI TO AWAKEN. MYSELF AND OTHER STAFF, STILL UNABLE TO PLACE A NEW IV SITE. HOSPITALIST CALLED TO SEE IF SHE WANTED TO ADD AN ADDITIONAL PO PAIN MED FOR PT. PT HAS FLEXERIL, NEURONTIN AND TYLENOL SHE CAN TAKE PO. HOSPITALIST STATED WE CAN TRY AGAIN FOR A NEW IV SITE LATER TODAY AND PT CAN BE GIVEN PRN PO MEDS SHE ALREADY HAS ORDERED FOR NOW.
[2021-05-02 07:22] VITALS: BP 112/50; PULSE 87; TEMP 97.7
--- NOTE | 2021-05-02 08:00 | NUR ---
Assessment completed, alert/oriented, vital signs stable, cardiac workup is thus far benign, she continues to report 8/10 chest pain, ECHO being done at this time, heart RRR/distal pulses are palpable, SR on tele, lungs CTA/ no reps.difficulty noted, will cotninue to monitor, possible D/C home
[2021-05-02 08:25] LABS: BASO % 0.2 % (0.0-2.0); EOS # 0.1 K/mm3 (0.0-0.7); EOS % 1.1 % (0.0-4.0); GRAN # 6.8 K/mm3 (1.4-6.5); GRAN % 76.9 % (42.2-75.2); LYMPH # 1.4 K/mm3 (1.2-3.4); LYMPH % 16.1 % (20.0-51.0); MEAN CELL VOLUME 89 fl (80.0-100.0); MEAN CORPUSCULAR HGB CONC 30 g/dl (33.0-37.0); MEAN PLATELET VOLUME 9.8 fl (7.4-10.4); MONO # 0.5 K/mm3 (0.1-0.6); MONO % 5.1 % (1.7-9.3); PLATELET COUNT 101 K/mm3 (130-400); RED BLOOD COUNT 3.37 M/mm3 (4.10-5.30); REDCELL DISTRIBUTION WIDTH-CV 15.1 % (11.5-14.5)
[2021-05-02 08:26] LABS: HEMOGLOBIN 9.1 g/dl (12.5-16.0); MEAN CORPUSCULAR HEMOGLOBIN 27 pg (27-31)
[2021-05-02 08:40] LABS: CALCIUM 8.8 mg/dL (8.4-10.2); CREATININE, serum 0.8 mg/dL (0.57-1.11); POTASSIUM 4.2 mmol/L (3.5-4.5)
[2021-05-02] MEDS ORDERED: LASIX 40MG TABL40 MG PO (09:19)
[2021-05-02] MEDS ORDERED: SYNTHROID0.075 MG/T PO (10:23)
--- NOTE | 2021-05-02 10:45 | NUR ---
Patient resting in room, bed linen changed and patient had shower independently. Call light in place
[2021-05-02 12:03] VITALS: BP 118/39; PULSE 71; TEMP 98.1
--- NOTE | 2021-05-02 12:31 | NUR ---
Clinical updates and [facility] who states that [facility] has no transportation to get the patient back to [place]. Per Brook, [facility] only has transportation on and that she doesn't think [facility] works with [facility] to provide transportation. Brook asks if the hospital would be able to provide the patient with a taxi voucher. I informed Morgan that i would get in touch with [facility] to see if they can help. Contact made with [facility] and spoke with Kassandra. Kassandra states that their transportation van is on it's way to [place] to pick one of their residents up. Asked Kassandra if it would be possible for when the van got back if they could pick the patient up. Kassandra is going to check with her configuration management administrator to see if this is possible. Contact made with Willa at [facility] who states that they do not currently have a transportation person on staff at this time. Priti's recommendation is to arrange EMS transport and bill [facility]. Due to patient's [facility] coverage, contact made with patient's insurance plan to arrange transportation.
--- NOTE | 2021-05-02 12:51 | NUR ---
Patient IV d/c from Left hand with no problems bleeding stopped and bandaid applied patient is waiting for ride back to home.
--- NOTE | 2021-05-02 13:10 | NUR ---
Discharge orders discussed with the patient, isntructed to follow up with PCP and Cards as I have scheduled for her, discussed med changes to Lasix and Synthroid and she verbalized understanding, told her to monitory for weight gains/loss daily, IV and tele removed, leaving with a friend via wheelchair, i will escort her out the door
--- NOTE | 2021-05-02 13:24 | NUR ---
fibre technologist from [facility] arrives to ER unit to pick patient upp to take back to [place].
--- NOTE | 2021-05-02 13:56 | NUR ---
Primary nurse was assisted with [phone] patient care by [employer] student Lina Johnson and [facility] instructor Teresa Hankins MSN, RN.
== END 2021-05-02 13:12 | disposition home or self-care (01) ==
LOC: COL.ER 16:16 → MEDICAL 20:16
PROVIDERS: Emergency Medicine; Nurse Practitioner Family; ADMIT Internal Medicine
DX: I11.0 Hypertensive heart disease with heart failure (principal); I50.30 Unspecified diastolic (congestive) heart failure; I27.20 Pulmonary hypertension, unspecified; I63.9 Cerebral infarction, unspecified; E78.5 Hyperlipidemia, unspecified; E11.40 Type 2 diabetes mellitus with diabetic neuropathy, unspecified; E03.9 Hypothyroidism, unspecified; J44.9 Chronic obstructive pulmonary disease, unspecified; J96.11 Chronic respiratory failure with hypoxia; J96.12 Chronic respiratory failure with hypercapnia; G40.909 Epilepsy, unspecified, not intractable, without status epilepticus; G89.29 Other chronic pain; E11.43 Type 2 diabetes mellitus with diabetic autonomic (poly)neuropathy; K31.84 Gastroparesis; K76.0 Fatty (change of) liver, not elsewhere classified; K59.00 Constipation, unspecified; D64.89 Other specified anemias; D69.6 Thrombocytopenia, unspecified; E66.01 Morbid (severe) obesity due to excess calories; F41.9 Anxiety disorder, unspecified; F31.9 Bipolar disorder, unspecified; F43.10 Post-traumatic stress disorder, unspecified; Z20.822 Contact with and (suspected) exposure to COVID-19; Z99.81 Dependence on supplemental oxygen; Z79.4 Long term (current) use of insulin
CPT/HCPCS: C8924; G0378; J1170; J1650; J1940; J2270; J2405; Q9957

== ENCOUNTER 2021-05-02 21:25 | Emergency (ER) | payer MEDICARE, MEDICAID ==
[~2021-05-02 21:25] MED LIST changes: +DESYREL DIVIDO150 M1 PO; +ERGOCALCIFER50000 IU PO; +FERROUSAL325 MG PO; +LASIX 40MG TABL40 MG PO; +SYNTHROID0.05 MG/TA PO; +SYNTHROID0.075 MG/T PO; +VOLTAREN GEL 1%1 TU TP; +VRAYLAR3 MG PO
[2021-05-02 21:28] VITALS: TEMP 98.7
[2021-05-02 23:46] LABS: BASO % 0.1 % (0.0-2.0); EOS # 0.1 K/mm3 (0.0-0.7); EOS % 1.4 % (0.0-4.0); GRAN # 6.9 K/mm3 (1.4-6.5); GRAN % 73.3 % (42.2-75.2); LYMPH # 1.9 K/mm3 (1.2-3.4); LYMPH % 20.1 % (20.0-51.0); MEAN CELL VOLUME 89 fl (80.0-100.0); MEAN CORPUSCULAR HGB CONC 31 g/dl (33.0-37.0); MEAN PLATELET VOLUME 9.9 fl (7.4-10.4); MONO # 0.4 K/mm3 (0.1-0.6); MONO % 4.6 % (1.7-9.3); PLATELET COUNT 106 K/mm3 (130-400); RED BLOOD COUNT 3.29 M/mm3 (4.10-5.30); REDCELL DISTRIBUTION WIDTH-CV 14.8 % (11.5-14.5)
[2021-05-02 23:48] LABS: HEMATOCRIT 29.4 % (37.0-47.0); MEAN CORPUSCULAR HEMOGLOBIN 27 pg (27-31)
[2021-05-03 00:05] LABS: ALANINE AMINOTRANSFERASE 25 U/L (0-55); ALBUMIN 3.7 gm/dL (3.5-5.0); ALKALINE PHOSPHATASE 243 U/L (40-150); ANION GAP 9 mmol/L (7-16); AST,SGOT 36 U/L (5-34); BILIRUBIN,TOTAL 0.2 mg/dL (0.2-1.2); BLOOD UREA NITROGEN 24 mg/dL (10-20); CALCIUM 9.2 mg/dL (8.4-10.2); CARBON DIOXIDE 33 mmol/L (22-29); CHLORIDE 98 mmol/L (98-107); CREATININE, serum 0.74 mg/dL (0.57-1.11); GLUCOSE 65 mg/dL (70-99); POTASSIUM 3.6 mmol/L (3.5-4.5); SODIUM 140 mmol/L (136-145); TOTAL PROTEIN 7.1 gm/dL (6.2-8.1)
[2021-05-03 00:15] LABS: TROPONIN-I < 0.010 ng/mL (0.00-0.033)
[2021-05-03 02:16] VITALS: BP 155/68; PULSE 85
== END 2021-05-03 02:16 | disposition home or self-care (01) ==
LOC: COL.ER 21:25
PROVIDERS: Physician Assistant
DX: R07.89 Other chest pain (principal); E66.01 Morbid (severe) obesity due to excess calories; Z98.61 Coronary angioplasty status; Z86.16 Personal history of COVID-19; Z88.6 Allergy status to analgesic agent

== ENCOUNTER 2021-05-13 12:20 | Emergency (ER) | payer MEDICARE, MEDICAID ==
[~2021-05-13] VITALS: Ht 154.9 cm; Wt 113.6 kg
[2021-05-13 13:19] LABS: BASO % 0.3 % (0.0-2.0); EOS # 0.1 K/mm3 (0.0-0.7); EOS % 1.1 % (0.0-4.0); GRAN # 6.5 K/mm3 (1.4-6.5); GRAN % 74.2 % (42.2-75.2); HEMATOCRIT 30.6 % (37.0-47.0); HEMOGLOBIN 9.7 g/dl (12.5-16.0); LYMPH # 1.6 K/mm3 (1.2-3.4); LYMPH % 18.3 % (20.0-51.0); MEAN CELL VOLUME 87 fl (80.0-100.0); MEAN CORPUSCULAR HEMOGLOBIN 27 pg (27-31); MEAN CORPUSCULAR HGB CONC 32 g/dl (33.0-37.0); MEAN PLATELET VOLUME 9.9 fl (7.4-10.4); MONO # 0.5 K/mm3 (0.1-0.6); MONO % 5.2 % (1.7-9.3); PLATELET COUNT 141 K/mm3 (130-400); RED BLOOD COUNT 3.53 M/mm3 (4.10-5.30); REDCELL DISTRIBUTION WIDTH-CV 15.1 % (11.5-14.5)
[2021-05-13 13:30] LABS: ALANINE AMINOTRANSFERASE 26 U/L (0-55); ALKALINE PHOSPHATASE 246 U/L (40-150); ANION GAP 11 mmol/L (7-16); AST,SGOT 40 U/L (5-34); BILIRUBIN,TOTAL 0.3 mg/dL (0.2-1.2); BLOOD UREA NITROGEN 20 mg/dL (10-20); CALCIUM 9.4 mg/dL (8.4-10.2); CARBON DIOXIDE 29 mmol/L (22-29); CHLORIDE 101 mmol/L (98-107); GLUCOSE 153 mg/dL (70-99); POTASSIUM 4.2 mmol/L (3.5-4.5); SODIUM 141 mmol/L (136-145); TOTAL PROTEIN 7.8 gm/dL (6.2-8.1)
[2021-05-13 13:32] LABS: INR 1.2 (0.8-3.0); PROTHROMBIN TIME 12.8 SECONDS (9.7-12.8)
[2021-05-13 13:35] LABS: PARTIAL THROMBOPLASTIN TIME 36.7 SECONDS (26.0-37.0)
[2021-05-13 13:37] LABS: TROPONIN-I < 0.010 ng/mL (0.00-0.033)
[2021-05-13 15:28] VITALS: BP 140/74; PULSE 86
== END 2021-05-13 15:28 | disposition home or self-care (01) ==
LOC: COL.ER 12:20
PROVIDERS: Emergency Medicine
DX: J81.1 Chronic pulmonary edema (principal); E66.01 Morbid (severe) obesity due to excess calories; Z98.61 Coronary angioplasty status; Z86.16 Personal history of COVID-19; Z68.42 Body mass index [BMI] 45.0-49.9, adult
CPT/HCPCS: J1170; J1940; J2270; J2405; J2765; Q9967

== ENCOUNTER → 2021-05-13 | Outpatient (CLI) | payer MEDICARE, MEDICAID ==
[2021-05-13 10:48] LABS: ANION GAP 12 mmol/L (7-16); BLOOD UREA NITROGEN 20 mg/dL (10-20); CALCIUM 9.3 mg/dL (8.4-10.2); CARBON DIOXIDE 29 mmol/L (22-29); CHLORIDE 100 mmol/L (98-107); CREATININE, serum 1.04 mg/dL (0.57-1.11); GLUCOSE 221 mg/dL (70-99); POTASSIUM 4.2 mmol/L (3.5-4.5); SODIUM 141 mmol/L (136-145)
[2021-05-13 10:56] LABS: TROPONIN-I < 0.010 ng/mL (0.00-0.033)
== END ==
LOC: COL.LAB 10:09
PROVIDERS: Surgery
DX: I20.9 Angina pectoris, unspecified (principal)

== ENCOUNTER 2021-05-16 10:49 | Emergency (ER) | payer MEDICARE, MEDICAID ==
[~2021-05-16] VITALS: Ht 154.9 cm; Wt 113.6 kg
[2021-05-16 10:59] VITALS: TEMP 98.2
[2021-05-16 11:33] LABS: HEMOGLOBIN 9.2 g/dl (12.5-16.0); MEAN CELL VOLUME 89 fl (80.0-100.0); MEAN CORPUSCULAR HEMOGLOBIN 27 pg (27-31); MEAN CORPUSCULAR HGB CONC 31 g/dl (33.0-37.0); MEAN PLATELET VOLUME 9.6 fl (7.4-10.4); PLATELET COUNT 121 K/mm3 (130-400); RED BLOOD COUNT 3.38 M/mm3 (4.10-5.30); REDCELL DISTRIBUTION WIDTH-CV 15.2 % (11.5-14.5)
[2021-05-16 11:39] LABS: BASO % 0.2 % (0.0-2.0); EOS # 0.1 K/mm3 (0.0-0.7); EOS % 1.2 % (0.0-4.0); GRAN # 6.4 K/mm3 (1.4-6.5); GRAN % 77.6 % (42.2-75.2); LYMPH # 1.2 K/mm3 (1.2-3.4); LYMPH % 14.8 % (20.0-51.0); MONO # 0.4 K/mm3 (0.1-0.6); MONO % 4.9 % (1.7-9.3)
[2021-05-16 12:10] LABS: ALANINE AMINOTRANSFERASE 19 U/L (0-55); ALBUMIN 3.7 gm/dL (3.5-5.0); ALKALINE PHOSPHATASE 224 U/L (40-150); ANION GAP 11 mmol/L (7-16); AST,SGOT 33 U/L (5-34); BILIRUBIN,TOTAL 0.2 mg/dL (0.2-1.2); BLOOD UREA NITROGEN 19 mg/dL (10-20); CALCIUM 9.3 mg/dL (8.4-10.2); CARBON DIOXIDE 29 mmol/L (22-29); CHLORIDE 101 mmol/L (98-107); CREATININE, serum 0.85 mg/dL (0.57-1.11); GLUCOSE 169 mg/dL (70-99); POTASSIUM 4.2 mmol/L (3.5-4.5); SODIUM 141 mmol/L (136-145); TOTAL PROTEIN 7.3 gm/dL (6.2-8.1)
[2021-05-16 12:33] LABS: TROPONIN-I < 0.010 ng/mL (0.00-0.033)
[2021-05-16 13:48] VITALS: BP 117/66; PULSE 65
== END 2021-05-16 13:48 | disposition home or self-care (01) ==
LOC: COL.ER 10:49
PROVIDERS: Nurse Practitioner
DX: R07.89 Other chest pain (principal); Z86.16 Personal history of COVID-19

== ENCOUNTER 2021-06-05 21:04 | Emergency (ER) | payer MEDICARE, MEDICAID ==
[~2021-06-05] VITALS: Ht 162.6 cm; Wt 86.4 kg
[2021-06-05 21:06] VITALS: TEMP 98.4
[2021-06-05 21:33] LABS: BASO % 0.3 % (0.0-2.0); EOS # 0.2 K/mm3 (0.0-0.7); EOS % 2.1 % (0.0-4.0); GRAN # 7.1 K/mm3 (1.4-6.5); GRAN % 72.4 % (42.2-75.2); HEMOGLOBIN 9.6 g/dl (12.5-16.0); LYMPH # 1.9 K/mm3 (1.2-3.4); LYMPH % 19.6 % (20.0-51.0); MEAN CELL VOLUME 85 fl (80.0-100.0); MEAN CORPUSCULAR HEMOGLOBIN 27 pg (27-31); MEAN CORPUSCULAR HGB CONC 32 g/dl (33.0-37.0); MEAN PLATELET VOLUME 9.6 fl (7.4-10.4); MONO # 0.5 K/mm3 (0.1-0.6); MONO % 4.8 % (1.7-9.3); PLATELET COUNT 123 K/mm3 (130-400); RED BLOOD COUNT 3.53 M/mm3 (4.10-5.30); REDCELL DISTRIBUTION WIDTH-CV 15.4 % (11.5-14.5)
[2021-06-05 21:52] LABS: ALBUMIN 3.9 gm/dL (3.5-5.0); BILIRUBIN,TOTAL 0.1 mg/dL (0.2-1.2); CALCIUM 9.3 mg/dL (8.4-10.2); CREATININE, serum 0.83 mg/dL (0.57-1.11); POTASSIUM 4.2 mmol/L (3.5-4.5); TOTAL PROTEIN 7.6 gm/dL (6.2-8.1)
[2021-06-05 21:53] LABS: COLLECTION METHOD CLEAN CATCH
[2021-06-05 21:59] LABS: PH 6 (5-8); URINE APPEARANCE Hazy (CLEAR/HAZY); URINE BACTERIA None Seen /hpf (NONE SEEN); URINE BILIRUBIN Negative (NEGATIVE); URINE BLOOD Negative (NEGATIVE); URINE COLOR Yellow (YELLOW); URINE GLUCOSE Negative (NEGATIVE); URINE KETONE Negative (NEGATIVE); URINE LEUKOCYTE ESTERASE Negative (NEGATIVE); URINE NITRATE Negative (NEGATIVE); URINE PROTEIN(semi-quant) Negative (NEGATIVE); URINE RBC 0-2 /hpf (0-2); URINE UROBILINOGEN Negative (NEGATIVE)
[2021-06-05 23:26] VITALS: BP 107/55; PULSE 70
== END 2021-06-05 23:30 | disposition home or self-care (01) ==
LOC: COL.ER 21:04
PROVIDERS: Student in an Organized Health Care Education/Training Program
DX: R10.84 Generalized abdominal pain (principal); Z90.49 Acquired absence of other specified parts of digestive tract; Z96.82 Presence of neurostimulator; Z98.51 Tubal ligation status; Z86.16 Personal history of COVID-19; Z85.028 Personal history of other malignant neoplasm of stomach
CPT/HCPCS: J1170; J2765; Q9967

== ENCOUNTER 2021-06-06 17:20 | Emergency (ER) | payer MEDICARE, MEDICAID ==
[2021-06-06 17:24] VITALS: TEMP 98.3
[2021-06-06 18:54] LABS: BASO % 0.3 % (0.0-2.0); EOS # 0.2 K/mm3 (0.0-0.7); EOS % 1.4 % (0.0-4.0); GRAN # 8.7 K/mm3 (1.4-6.5); GRAN % 78.5 % (42.2-75.2); LYMPH # 1.5 K/mm3 (1.2-3.4); LYMPH % 13.8 % (20.0-51.0); MEAN CELL VOLUME 86 fl (80.0-100.0); MEAN CORPUSCULAR HGB CONC 32 g/dl (33.0-37.0); MEAN PLATELET VOLUME 9.7 fl (7.4-10.4); MONO # 0.6 K/mm3 (0.1-0.6); MONO % 5.2 % (1.7-9.3); PLATELET COUNT 114 K/mm3 (130-400); RED BLOOD COUNT 3.59 M/mm3 (4.10-5.30); REDCELL DISTRIBUTION WIDTH-CV 15.5 % (11.5-14.5)
[2021-06-06 19:10] LABS: ALANINE AMINOTRANSFERASE 18 U/L (0-55); ALBUMIN 4.2 gm/dL (3.5-5.0); ALKALINE PHOSPHATASE 217 U/L (40-150); ANION GAP 12 mmol/L (7-16); AST,SGOT 40 U/L (5-34); BILIRUBIN,TOTAL 0.2 mg/dL (0.2-1.2); BLOOD UREA NITROGEN 27 mg/dL (10-20); CALCIUM 9.2 mg/dL (8.4-10.2); CARBON DIOXIDE 28 mmol/L (22-29); CHLORIDE 102 mmol/L (98-107); CREATININE, serum 0.87 mg/dL (0.57-1.11); GLUCOSE 75 mg/dL (70-99); SODIUM 142 mmol/L (136-145); TOTAL PROTEIN 7.8 gm/dL (6.2-8.1)
[2021-06-06 19:17] LABS: TROPONIN-I < 0.010 ng/mL (0.00-0.033)
[2021-06-06 19:21] LABS: HEMOGLOBIN 9.8 g/dl (12.5-16.0); MEAN CORPUSCULAR HEMOGLOBIN 27 pg (27-31)
[2021-06-06 19:30] LABS: COLLECTION METHOD CLEAN CATCH
[2021-06-06 19:51] LABS: MUCOUS Present (NOT PRESENT); PH 5 (5-8); SQUAMOUS EPITHELIAL None Seen /hpf (0-10); URINE APPEARANCE Clear (CLEAR/HAZY); URINE BACTERIA None Seen /hpf (NONE SEEN); URINE BILIRUBIN Negative (NEGATIVE); URINE BLOOD Negative (NEGATIVE); URINE COLOR Straw (YELLOW); URINE GLUCOSE Negative (NEGATIVE); URINE KETONE Negative (NEGATIVE); URINE LEUKOCYTE ESTERASE Negative (NEGATIVE); URINE NITRATE Negative (NEGATIVE); URINE PROTEIN(semi-quant) Negative (NEGATIVE); URINE RBC 0-2 /hpf (0-2); URINE UROBILINOGEN Negative (NEGATIVE)
[2021-06-06 20:41] VITALS: BP 139/73; PULSE 78
== END 2021-06-06 20:41 | disposition home or self-care (01) ==
LOC: COL.ER 17:20
PROVIDERS: Nurse Practitioner
DX: R60.0 Localized edema (principal); R33.9 Retention of urine, unspecified; R06.00 Dyspnea, unspecified; R11.0 Nausea
CPT/HCPCS: J1940; J2270; J2405

== ENCOUNTER 2021-06-13 10:25 | Emergency (ER) | payer MEDICARE, MEDICAID ==
[~2021-06-13] VITALS: Ht 154.9 cm; Wt 111.8 kg
[~2021-06-13 10:25] MED LIST changes: -ERGOCALCIFER50000 IU PO
[2021-06-13 10:41] VITALS: TEMP 98.6
[2021-06-13] MEDS ORDERED: DEMADEX 20MG20 M1 PO (11:27)
[2021-06-13] MEDS ORDERED: SYNTHROID0.088 MG/T PO (11:30)
[2021-06-13] MEDS ORDERED: MACROBID 1100 MG/CAP PO (11:34)
[2021-06-13] MEDS ORDERED: LEVSIN0.125 M1 PO (11:35)
[2021-06-13] MEDS ORDERED: ZEBETA 5MG5 MG PO (11:36)
[2021-06-13 11:46] LABS: BASO % 0.2 % (0.0-2.0); EOS # 0.2 K/mm3 (0.0-0.7); EOS % 1.6 % (0.0-4.0); GRAN % 74.6 % (42.2-75.2); LYMPH # 1.8 K/mm3 (1.2-3.4); LYMPH % 18.8 % (20.0-51.0); MEAN CELL VOLUME 87 fl (80.0-100.0); MEAN CORPUSCULAR HGB CONC 31 g/dl (33.0-37.0); MEAN PLATELET VOLUME 9.8 fl (7.4-10.4); MONO # 0.4 K/mm3 (0.1-0.6); MONO % 4.4 % (1.7-9.3); PLATELET COUNT 112 K/mm3 (130-400); RED BLOOD COUNT 3.64 M/mm3 (4.10-5.30); REDCELL DISTRIBUTION WIDTH-CV 15.1 % (11.5-14.5)
[2021-06-13 11:51] LABS: HEMATOCRIT 31.6 % (37.0-47.0); HEMOGLOBIN 9.9 g/dl (12.5-16.0); MEAN CORPUSCULAR HEMOGLOBIN 27 pg (27-31)
[2021-06-13 11:54] LABS: COLLECTION METHOD CLEAN CATCH
[2021-06-13 12:01] LABS: PH 5 (5-8); URINE APPEARANCE Hazy (CLEAR/HAZY); URINE BACTERIA Rare /hpf (NONE SEEN); URINE BILIRUBIN Negative (NEGATIVE); URINE BLOOD Negative (NEGATIVE); URINE COLOR Yellow (YELLOW); URINE GLUCOSE Negative (NEGATIVE); URINE KETONE Negative (NEGATIVE); URINE LEUKOCYTE ESTERASE Negative (NEGATIVE); URINE NITRATE Negative (NEGATIVE); URINE PROTEIN(semi-quant) Negative (NEGATIVE); URINE RBC 0-2 /hpf (0-2); URINE UROBILINOGEN Negative (NEGATIVE)
[2021-06-13 12:18] LABS: ALANINE AMINOTRANSFERASE 17 U/L (0-55); ALBUMIN 4.3 gm/dL (3.5-5.0); ALKALINE PHOSPHATASE 197 U/L (40-150); ANION GAP 11 mmol/L (7-16); AST,SGOT 35 U/L (5-34); BILIRUBIN,TOTAL 0.3 mg/dL (0.2-1.2); BLOOD UREA NITROGEN 26 mg/dL (10-20); CALCIUM 9.4 mg/dL (8.4-10.2); CARBON DIOXIDE 31 mmol/L (22-29); CHLORIDE 99 mmol/L (98-107); CREATININE, serum 0.99 mg/dL (0.57-1.11); GLUCOSE 130 mg/dL (70-99); POTASSIUM 4.2 mmol/L (3.5-4.5); SODIUM 141 mmol/L (136-145); TOTAL PROTEIN 7.7 gm/dL (6.2-8.1)
[2021-06-13 12:28] LABS: TROPONIN-I < 0.010 ng/mL (0.00-0.033)
[2021-06-13] MEDS ORDERED: NORCO 325 MG-51 TAB PO (13:40)
[2021-06-13 14:58] VITALS: BP 146/56; PULSE 80
[2021-06-25] MEDS ORDERED: ATIVAN 0.50.5 MG/TAB PO (07:59)
[2021-06-25] MEDS ORDERED: TEMOVATE0.05% TP (08:02)
[2021-06-25] MEDS ORDERED: DEMADEX 20MG20 M1 PO (08:19)
[2021-06-25] MEDS ORDERED: FERROUS SU325 MG/TAB PO (08:44)
[2021-06-25] MEDS ORDERED: ATARAX50 MG PO (08:45)
[2021-06-25] MEDS ORDERED: LAMICTAL 100MG100 MG PO (08:47)
[2021-06-25] MEDS ORDERED: LAMICTAL200 MG PO (08:47)
[2021-06-25] MEDS ORDERED: SYNTHROID0.088 MG/T PO (08:48)
== END 2021-06-13 14:59 | disposition home or self-care (01) ==
LOC: COL.ER 10:25
PROVIDERS: Physician Assistant
DX: J96.11 Chronic respiratory failure with hypoxia (principal); R07.89 Other chest pain

== ENCOUNTER 2021-06-21 22:13 | Emergency (ER) | payer MEDICARE, MEDICAID ==
[~2021-06-21] VITALS: Ht 162.6 cm; Wt 95.5 kg
[~2021-06-21 22:13] MED LIST changes: +DEMADEX 20MG20 M1 PO; +LEVSIN0.125 M1 PO; +SYNTHROID0.088 MG/T PO; +ZEBETA 5MG5 MG PO
[2021-06-21 22:14] VITALS: TEMP 98.7
[2021-06-22 01:24] LABS: BASO % 0.2 % (0.0-2.0); EOS # 0.1 K/mm3 (0.0-0.7); EOS % 1.5 % (0.0-4.0); GRAN # 5.6 K/mm3 (1.4-6.5); GRAN % 69.9 % (42.2-75.2); LYMPH # 1.8 K/mm3 (1.2-3.4); LYMPH % 22.1 % (20.0-51.0); MEAN CELL VOLUME 88 fl (80.0-100.0); MEAN CORPUSCULAR HGB CONC 31 g/dl (33.0-37.0); MEAN PLATELET VOLUME 9.4 fl (7.4-10.4); MONO # 0.5 K/mm3 (0.1-0.6); MONO % 5.9 % (1.7-9.3); PLATELET COUNT 101 K/mm3 (130-400); RED BLOOD COUNT 3.43 M/mm3 (4.10-5.30); REDCELL DISTRIBUTION WIDTH-CV 14.8 % (11.5-14.5)
[2021-06-22 01:26] LABS: HEMOGLOBIN 9.4 g/dl (12.5-16.0); MEAN CORPUSCULAR HEMOGLOBIN 27 pg (27-31)
[2021-06-22 01:40] LABS: CALCIUM 9.1 mg/dL (8.4-10.2); CREATININE, serum 0.82 mg/dL (0.57-1.11); POTASSIUM 3.8 mmol/L (3.5-4.5)
[2021-06-22 04:00] VITALS: BP 112/63; PULSE 65
[2021-06-25] MEDS ORDERED: ATIVAN 0.50.5 MG/TAB PO (07:59)
[2021-06-25] MEDS ORDERED: TEMOVATE0.05% TP (08:02)
[2021-06-25] MEDS ORDERED: DEMADEX 20MG20 M1 PO (08:19)
[2021-06-25] MEDS ORDERED: FERROUS SU325 MG/TAB PO (08:44)
[2021-06-25] MEDS ORDERED: ATARAX50 MG PO (08:45)
[2021-06-25] MEDS ORDERED: LAMICTAL200 MG PO (08:47)
[2021-06-25] MEDS ORDERED: LAMICTAL 100MG100 MG PO (08:47)
[2021-06-25] MEDS ORDERED: SYNTHROID0.088 MG/T PO (08:48)
== END 2021-06-22 04:00 | disposition home or self-care (01) ==
LOC: COL.ER 22:13
PROVIDERS: Emergency Medicine
DX: S70.01XA Contusion of right hip, initial encounter (principal); W06.XXXA Fall from bed, initial encounter
CPT/HCPCS: J3010

== ENCOUNTER 2021-06-26 23:10 | Emergency (ER) | payer MEDICARE, MEDICAID ==
[~2021-06-26] VITALS: Ht 154.9 cm; Wt 110.5 kg
[~2021-06-26 23:10] MED LIST changes: +FERROUS SU325 MG/TAB PO; +TEMOVATE0.05% TP
[2021-06-26 23:12] VITALS: TEMP 98.4
[2021-06-26 23:59] LABS: BASO % 0.4 % (0.0-2.0); EOS # 0.1 K/mm3 (0.0-0.7); EOS % 1.2 % (0.0-4.0); GRAN # 7.3 K/mm3 (1.4-6.5); GRAN % 72.1 % (42.2-75.2); LYMPH # 2.1 K/mm3 (1.2-3.4); MEAN CELL VOLUME 84 fl (80.0-100.0); MEAN CORPUSCULAR HGB CONC 32 g/dl (33.0-37.0); MONO # 0.5 K/mm3 (0.1-0.6); MONO % 4.9 % (1.7-9.3); PLATELET COUNT 107 K/mm3 (130-400); RED BLOOD COUNT 3.53 M/mm3 (4.10-5.30); REDCELL DISTRIBUTION WIDTH-CV 14.9 % (11.5-14.5)
[2021-06-27 00:02] LABS: HEMATOCRIT 29.8 % (37.0-47.0); HEMOGLOBIN 9.6 g/dl (12.5-16.0); MEAN CORPUSCULAR HEMOGLOBIN 27 pg (27-31)
[2021-06-27 00:25] VITALS: BP 154/87; PULSE 76
== END 2021-06-27 00:24 | disposition home or self-care (01) ==
LOC: COL.ER 23:10
PROVIDERS: Emergency Medicine
DX: R10.31 Right lower quadrant pain (principal); E66.01 Morbid (severe) obesity due to excess calories; Z98.61 Coronary angioplasty status; Z86.16 Personal history of COVID-19; Z68.42 Body mass index [BMI] 45.0-49.9, adult
CPT/HCPCS: J1170; J2550

== ENCOUNTER 2021-07-03 21:40 | Emergency (ER) | payer MEDICARE, MEDICAID ==
[~2021-07-03] VITALS: Ht 154.9 cm; Wt 110.5 kg
[2021-07-03 21:42] VITALS: TEMP 98.9
[2021-07-03 22:23] LABS: BASO % 0.3 % (0.0-2.0); EOS # 0.2 K/mm3 (0.0-0.7); EOS % 1.4 % (0.0-4.0); GRAN # 7.5 K/mm3 (1.4-6.5); GRAN % 71.3 % (42.2-75.2); HEMOGLOBIN 10.1 g/dl (12.5-16.0); LYMPH # 2.2 K/mm3 (1.2-3.4); LYMPH % 20.7 % (20.0-51.0); MEAN CELL VOLUME 85 fl (80.0-100.0); MEAN CORPUSCULAR HEMOGLOBIN 27 pg (27-31); MEAN CORPUSCULAR HGB CONC 32 g/dl (33.0-37.0); MEAN PLATELET VOLUME 9.9 fl (7.4-10.4); MONO # 0.6 K/mm3 (0.1-0.6); MONO % 5.6 % (1.7-9.3); PLATELET COUNT 123 K/mm3 (130-400); RED BLOOD COUNT 3.73 M/mm3 (4.10-5.30); REDCELL DISTRIBUTION WIDTH-CV 14.6 % (11.5-14.5)
[2021-07-03 22:24] LABS: HEMATOCRIT 31.8 % (37.0-47.0)
[2021-07-03 22:37] LABS: BILIRUBIN,TOTAL 0.2 mg/dL (0.2-1.2); CALCIUM 9.6 mg/dL (8.4-10.2); CREATININE, serum 0.94 mg/dL (0.57-1.11); POTASSIUM 3.7 mmol/L (3.5-4.5); TOTAL PROTEIN 7.4 gm/dL (6.2-8.1)
[2021-07-03 23:37] LABS: COLLECTION METHOD CLEAN CATCH
[2021-07-03 23:43] LABS: MUCOUS Present (NOT PRESENT); PH 5 (5-8); SQUAMOUS EPITHELIAL 0-2 /hpf (0-10); URINE APPEARANCE Clear (CLEAR/HAZY); URINE BACTERIA None Seen /hpf (NONE SEEN); URINE BILIRUBIN Negative (NEGATIVE); URINE BLOOD Negative (NEGATIVE); URINE COLOR Yellow (YELLOW); URINE GLUCOSE Negative (NEGATIVE); URINE KETONE Negative (NEGATIVE); URINE LEUKOCYTE ESTERASE Trace (NEGATIVE); URINE NITRATE Negative (NEGATIVE); URINE PROTEIN(semi-quant) Negative (NEGATIVE); URINE RBC 0-2 /hpf (0-2); URINE UROBILINOGEN Negative (NEGATIVE)
[2021-07-04 03:00] VITALS: BP 110/52; PULSE 65
== END 2021-07-04 03:15 | disposition home or self-care (01) ==
LOC: COL.ER 21:40
PROVIDERS: Student in an Organized Health Care Education/Training Program
DX: R11.0 Nausea (principal); R10.12 Left upper quadrant pain; R42 Dizziness and giddiness; E66.01 Morbid (severe) obesity due to excess calories; Z28.310 Unvaccinated for COVID-19
CPT/HCPCS: J2270; J2405; J2550

== ENCOUNTER 2021-07-05 19:58 | Emergency (ER) | payer MEDICARE, MEDICAID ==
[~2021-07-05] VITALS: Ht 154.9 cm; Wt 110.5 kg
[2021-07-05 20:32] LABS: BASO % 0.3 % (0.0-2.0); EOS # 0.1 K/mm3 (0.0-0.7); EOS % 1.1 % (0.0-4.0); GRAN # 8.6 K/mm3 (1.4-6.5); GRAN % 74.6 % (42.2-75.2); LYMPH # 2.2 K/mm3 (1.2-3.4); LYMPH % 19.2 % (20.0-51.0); MEAN CELL VOLUME 87 fl (80.0-100.0); MEAN CORPUSCULAR HEMOGLOBIN 28 pg (27-31); MEAN CORPUSCULAR HGB CONC 32 g/dl (33.0-37.0); MONO # 0.5 K/mm3 (0.1-0.6); MONO % 4.2 % (1.7-9.3); PLATELET COUNT 125 K/mm3 (130-400); RED BLOOD COUNT 3.64 M/mm3 (4.10-5.30); REDCELL DISTRIBUTION WIDTH-CV 14.6 % (11.5-14.5)
[2021-07-05 20:33] LABS: INR 1.1 (0.8-3.0); PROTHROMBIN TIME 12.7 SECONDS (9.7-12.8)
[2021-07-05 20:40] LABS: HEMATOCRIT 31.5 % (37.0-47.0)
[2021-07-05 20:45] LABS: BILIRUBIN,TOTAL 0.2 mg/dL (0.2-1.2); CALCIUM 9.2 mg/dL (8.4-10.2); CREATININE, serum 0.95 mg/dL (0.57-1.11); POTASSIUM 3.8 mmol/L (3.5-4.5); TOTAL PROTEIN 7.5 gm/dL (6.2-8.1)
[2021-07-05 22:49] LABS: COLLECTION METHOD IN
[2021-07-05 22:55] LABS: PH 8 (5-8); URINE APPEARANCE Clear (CLEAR/HAZY); URINE BACTERIA None Seen /hpf (NONE SEEN); URINE BILIRUBIN Negative (NEGATIVE); URINE BLOOD Negative (NEGATIVE); URINE COLOR Yellow (YELLOW); URINE GLUCOSE Negative (NEGATIVE); URINE KETONE Negative (NEGATIVE); URINE LEUKOCYTE ESTERASE Negative (NEGATIVE); URINE NITRATE Negative (NEGATIVE); URINE PROTEIN(semi-quant) Negative (NEGATIVE); URINE RBC 0-2 /hpf (0-2); URINE UROBILINOGEN Negative (NEGATIVE)
[2021-07-05 23:09] LABS: TRICYCLIC ANTIDEPRESS URINE NEGATIVE
[2021-07-06 00:10] VITALS: BP 135/61; PULSE 67; TEMP 98.3
== END 2021-07-06 00:10 | disposition home or self-care (01) ==
LOC: COL.ER 19:58
PROVIDERS: Emergency Medicine
DX: R51.9 Headache, unspecified (principal); E66.01 Morbid (severe) obesity due to excess calories; Z68.42 Body mass index [BMI] 45.0-49.9, adult; Z86.69 Personal history of other diseases of the nervous system and sense organs; Z86.16 Personal history of COVID-19
CPT/HCPCS: J0780; J1170; J1200; J2765

== ENCOUNTER 2021-07-09 17:33 | Emergency (ER) | payer MEDICARE, MEDICAID ==
[~2021-07-09] VITALS: Ht 162.6 cm; Wt 109.1 kg
[2021-07-09 17:37] VITALS: TEMP 99
[2021-07-09 19:30] LABS: COLLECTION METHOD CLEAN CATCH
[2021-07-09 19:40] LABS: PH 6 (5-8); URINE APPEARANCE Hazy (CLEAR/HAZY); URINE BACTERIA None Seen /hpf (NONE SEEN); URINE BILIRUBIN Negative (NEGATIVE); URINE BLOOD Negative (NEGATIVE); URINE COLOR Yellow (YELLOW); URINE GLUCOSE Negative (NEGATIVE); URINE KETONE Negative (NEGATIVE); URINE LEUKOCYTE ESTERASE Negative (NEGATIVE); URINE NITRATE Negative (NEGATIVE); URINE PROTEIN(semi-quant) Negative (NEGATIVE); URINE RBC 0-2 /hpf (0-2); URINE UROBILINOGEN Negative (NEGATIVE)
[2021-07-09 19:53] LABS: BASO % 0.3 % (0.0-2.0); EOS # 0.2 K/mm3 (0.0-0.7); EOS % 1.4 % (0.0-4.0); GRAN # 7.8 K/mm3 (1.4-6.5); GRAN % 72.6 % (42.2-75.2); HEMOGLOBIN 10.7 g/dl (12.5-16.0); LYMPH # 2.2 K/mm3 (1.2-3.4); LYMPH % 19.9 % (20.0-51.0); MEAN CELL VOLUME 86 fl (80.0-100.0); MEAN CORPUSCULAR HEMOGLOBIN 27 pg (27-31); MEAN CORPUSCULAR HGB CONC 32 g/dl (33.0-37.0); MONO # 0.5 K/mm3 (0.1-0.6); MONO % 4.8 % (1.7-9.3); PLATELET COUNT 128 K/mm3 (130-400); RED BLOOD COUNT 3.95 M/mm3 (4.10-5.30); REDCELL DISTRIBUTION WIDTH-CV 14.6 % (11.5-14.5)
[2021-07-09 19:54] LABS: HEMATOCRIT 33.8 % (37.0-47.0)
[2021-07-09 20:09] LABS: ALANINE AMINOTRANSFERASE 14 U/L (0-55); ALBUMIN 4.1 gm/dL (3.5-5.0); ALKALINE PHOSPHATASE 220 U/L (40-150); ANION GAP 13 mmol/L (7-16); AST,SGOT 28 U/L (5-34); BILIRUBIN,TOTAL 0.2 mg/dL (0.2-1.2); BLOOD UREA NITROGEN 19 mg/dL (10-20); CALCIUM 9.6 mg/dL (8.4-10.2); CARBON DIOXIDE 30 mmol/L (22-29); CHLORIDE 102 mmol/L (98-107); CREATININE, serum 0.89 mg/dL (0.57-1.11); GLUCOSE 82 mg/dL (70-99); SODIUM 145 mmol/L (136-145)
[2021-07-09 20:15] LABS: TROPONIN-I < 0.010 ng/mL (0.00-0.033)
[2021-07-09] MEDS ORDERED: PHENERGAN25 MG RC (20:21)
[2021-07-09 20:43] VITALS: BP 143/78; PULSE 60
== END 2021-07-09 20:43 | disposition home or self-care (01) ==
LOC: COL.ER 17:33
PROVIDERS: Physician Assistant
DX: R11.2 Nausea with vomiting, unspecified (principal); R19.7 Diarrhea, unspecified; G89.29 Other chronic pain; J44.9 Chronic obstructive pulmonary disease, unspecified; E66.01 Morbid (severe) obesity due to excess calories; Z99.81 Dependence on supplemental oxygen; Z28.311 Partially vaccinated for COVID-19
CPT/HCPCS: J0780; J7030

== ENCOUNTER 2021-08-05 20:37 | Emergency (ER) | payer MEDICARE, MEDICAID ==
[2021-08-05 20:41] VITALS: TEMP 98.2
[2021-08-05 21:09] LABS: BASO % 0.3 % (0.0-2.0); EOS # 0.2 K/mm3 (0.0-0.7); EOS % 1.6 % (0.0-4.0); GRAN # 8.1 K/mm3 (1.4-6.5); GRAN % 73.9 % (42.2-75.2); HEMOGLOBIN 10.1 g/dl (12.5-16.0); LYMPH # 2.1 K/mm3 (1.2-3.4); LYMPH % 18.9 % (20.0-51.0); MEAN CELL VOLUME 86 fl (80.0-100.0); MEAN CORPUSCULAR HEMOGLOBIN 27 pg (27-31); MEAN CORPUSCULAR HGB CONC 32 g/dl (33.0-37.0); MEAN PLATELET VOLUME 9.8 fl (7.4-10.4); MONO # 0.5 K/mm3 (0.1-0.6); MONO % 4.5 % (1.7-9.3); PLATELET COUNT 122 K/mm3 (130-400); RED BLOOD COUNT 3.75 M/mm3 (4.10-5.30); REDCELL DISTRIBUTION WIDTH-CV 14.6 % (11.5-14.5)
[2021-08-05 21:10] LABS: HEMATOCRIT 32.1 % (37.0-47.0)
[2021-08-05 21:23] LABS: ALBUMIN 3.6 gm/dL (3.5-5.0); BILIRUBIN,TOTAL 0.2 mg/dL (0.2-1.2); CALCIUM 9.1 mg/dL (8.4-10.2); CREATININE, serum 0.83 mg/dL (0.57-1.11); POTASSIUM 4.9 mmol/L (3.5-4.5); TOTAL PROTEIN 7.5 gm/dL (6.2-8.1)
[2021-08-05 23:23] VITALS: BP 138/77; PULSE 78
== END 2021-08-05 23:35 | disposition home or self-care (01) ==
LOC: COL.ER 20:37
PROVIDERS: Emergency Medicine
DX: R10.11 Right upper quadrant pain (principal); E66.01 Morbid (severe) obesity due to excess calories; Z90.49 Acquired absence of other specified parts of digestive tract; Z28.310 Unvaccinated for COVID-19
CPT/HCPCS: J1170; J2270; J2405; J7030